=== PATIENT | male | born 1970 | race Caucasian/White ===

== ENCOUNTER 2016-09-02 21:57 | Emergency (ER) | payer OTHER ==
[~2016-09-02] VITALS: Ht 180.3 cm; Wt 96.3 kg
[~2016-09-02 21:57] MED LIST: CIPRO500 MG PO; COZAAR50 MG PO; ESCITALOPRAM OX10 MG PO; FLAGYL500 MG PO; FLOMAX0.4 MG PO; FOLIC ACID1 MG PO; FOLIC ACID20 MG PO; HYDROCODON-ACE1 EAC7 PO; HYOSCYAMINE0.125 MG PO; KLONOPIN2 MG PO; LOSARTAN POTAS100 MG PO; MULTI VITAMIN1 EACH PO; NORCO 5/3251 TABLET PO; OLEPTRO ER150 MG PO; OMEPRAZOLE40 M1 PO; PERCOCET 5/31 TABLET PO; PROPRANOLOL HCL60 MG PO; RELPAX20 MG PO; SUCRALFATE1 GM PO; TRAZODONE HCL150 MG PO; TYLENOL WITH C1 EACH PO; VANCOCIN HCL125 MG PO; WELLBUTRIN SR150 MG PO; WELLBUTRIN100 M1 PO; ZOFRAN ODT4 MG PO; ZOFRAN4 MG PO
[2016-09-02 22:23] LABS: HEMATOCRIT 38.6 % (38.0-50.0); MCH 31.3 PG (29.0-34.0); MCHC 33.9 G/DL (30.0-36.0); MCV 92.3 FL (86-99); MEAN PLAT.VOLUME 9.6 uM^3 (9.0-12.4); PLATELET COUNT 273 K/uL (156-360); RBC DIS.WIDTH-CV 14.6 % (11.8-14.6); RBC DIS.WIDTH-SD 47.7 % (39-53); RED BLOOD COUNT 4.18 M/uL (4.00-5.50); WHITE BLOOD COUNT 11.7 K/uL (4.1-10.2)
[2016-09-02 22:33] LABS: CHLORIDE 113 mEq/L (99-109); POTASSIUM 3.1 mEq/L (3.7-5.4); SODIUM 146 mEq/L (136-147)
[2016-09-02 22:35] LABS: GLUCOSE 91 mg/dL (70-99)
[2016-09-02 22:36] LABS: ANION GAP 12 MEQ/L (2-14)
[2016-09-02 22:38] LABS: GFR ESTIMATE (CALCULATED) > 59 mL/min/; SERUM ETHYL ALCOHOL 326 mg/dL
[2016-09-02 22:39] LABS: UREA NITROGEN (BUN) 10 mg/dL (9-23)
[2016-09-02 22:42] LABS: TROP-I INTERPRETATION NEGATIVE; TROPONIN-I 0.01 ng/mL (0.0-0.30)
[2016-09-03 00:23] LABS: TOTAL BILIRUBIN 0.2 mg/dL (0.0-1.0)
[2016-09-03 00:24] LABS: ALKALINE PHOSPHATASE 86 IU/L (3-129)
[2016-09-03 00:27] LABS: DIRECT BILIRUBIN 0.1 mg/dL (0.0-0.3)
[2016-09-03 00:28] LABS: LIPASE 62 U/L (1.0-51.0)
[2016-09-03 03:18] LABS: ADD MIUA? NO; BILIRUBIN NEGATIVE; BLOOD NEGATIVE; COLOR YELLOW ((YELLOW)); GLUCOSE (STRIP) NEGATIVE; KETONES NEGATIVE; LEUKOCYTES NEGATIVE; NITRITE NEGATIVE; PH, URINE 6.5 (5-8); PROTEIN (STRIP) NEGATIVE; SPECIFIC GRAVITY 1.018 (1.000-1.030); UCUL ADDED? NO; UROBILINOGEN 0.2 MG/DL (0.2-1.0)
[2016-09-03 03:47] LABS: AMPHETAMINE NEGATIVE (500 ng/mL); COCAINE NEGATIVE (150 ng/mL); METHAMPHETAMINE NEGATIVE (500 ng/mL); OPIATES (MORPHINE) PRESUMPTIVE POSITIVE (100 ng/mL); PHENCYCLIDINE NEGATIVE (25 ng/mL); THC CANNABINOIDS PRESUMPTIVE POSITIVE (50 ng/mL)
[2016-09-03 03:48] LABS: BENZODIAZEPINES PRESUMPTIVE POSITIVE (150 ng/mL); METHADONE NEGATIVE (200 ng/mL); TRICYCLIC ANTIDEPRESSANTS NEGATIVE (300 ng/mL)
[2016-09-03 03:49] LABS: BARBITURATES NEGATIVE (200 ng/mL); INTERNAL CONTROLS VALID? YES; OXYCODONE NEGATIVE (100 ng/mL); PROPOXYPHENE NEGATIVE (300 ng/mL)
[2016-09-03 03:50] LABS: ADD MEDTOX COMMENT Y
[2016-09-03] MEDS ORDERED: ULTRAM50 MG PO (03:50)
[2016-09-03] MEDS ORDERED: LIBRIUM25 MG PO (03:50)
[2016-09-03] MEDS ORDERED: PRILOSEC OTC20 MG PO (03:50)
[2016-09-03 04:27] VITALS: BP 138/70
[2016-09-03 04:56] LABS: BENZODIAZEPINES, URINE SCREEN POSITIVE (200 ng/mL)
== END 2016-09-03 04:28 | disposition home or self-care (01) ==
LOC: EME 21:57
PROVIDERS: Emergency Medicine
DX: F10.129 Alcohol abuse with intoxication, unspecified (principal); K85.90 Acute pancreatitis without necrosis or infection, unspecified; S00.83XA Contusion of other part of head, initial encounter; R10.9 Unspecified abdominal pain; I10 Essential (primary) hypertension; F17.200 Nicotine dependence, unspecified, uncomplicated; Y04.0XXA Assault by unarmed brawl or fight, initial encounter; Z87.442 Personal history of urinary calculi; Z71.6 Tobacco abuse counseling
CPT/HCPCS: 70486; 71020; 74176; 80048; 80076; 81003; 83690; 84484; 84999; 85027; 93005; 99281; 99283; C9113; G0480; J2270; J2405; J7030

== ENCOUNTER 2016-09-13 05:59 | Emergency (ER) | payer OTHER ==
[~2016-09-13] VITALS: Ht 170.2 cm; Wt 97.6 kg
[~2016-09-13 05:59] MED LIST changes: +LIBRIUM25 MG PO; +PRILOSEC OTC20 MG PO; +ULTRAM50 MG PO
[2016-09-13 06:39] LABS: AMPHETAMINE NEGATIVE (500 ng/mL); BARBITURATES NEGATIVE (200 ng/mL); BENZODIAZEPINES PRESUMPTIVE POSITIVE (150 ng/mL); COCAINE NEGATIVE (150 ng/mL); INTERNAL CONTROLS VALID? YES; METHADONE NEGATIVE (200 ng/mL); METHAMPHETAMINE NEGATIVE (500 ng/mL); OPIATES (MORPHINE) NEGATIVE (100 ng/mL); OXYCODONE NEGATIVE (100 ng/mL); PHENCYCLIDINE NEGATIVE (25 ng/mL); PROPOXYPHENE NEGATIVE (300 ng/mL); THC CANNABINOIDS PRESUMPTIVE POSITIVE (50 ng/mL); TRICYCLIC ANTIDEPRESSANTS NEGATIVE (300 ng/mL)
[2016-09-13 06:40] LABS: ADD MEDTOX COMMENT Y
[2016-09-13 06:59] LABS: HEMATOCRIT 38.1 % (38.0-50.0); MCH 31.6 PG (29.0-34.0); MCHC 33.3 G/DL (30.0-36.0); MCV 94.8 FL (86-99); MEAN PLAT.VOLUME 9.4 uM^3 (9.0-12.4); PLATELET COUNT 213 K/uL (156-360); RBC DIS.WIDTH-CV 16.8 % (11.8-14.6); RBC DIS.WIDTH-SD 52.1 % (39-53); RED BLOOD COUNT 4.02 M/uL (4.00-5.50); WHITE BLOOD COUNT 9.4 K/uL (4.1-10.2)
[2016-09-13 07:20] LABS: BENZODIAZEPINES, URINE SCREEN POSITIVE (200 ng/mL)
[2016-09-13 08:42] LABS: ANION GAP 11 MEQ/L (2-14); CHLORIDE 108 MEQ/L (99-109); POTASSIUM 3.2 MEQ/L (3.7-5.4); SAMPLE HEMOLYSIS CHECK 0; SAMPLE ICTERIC CHECK 0; SAMPLE LIPEMIA CHECK 0; SODIUM 142 MEQ/L (136-147)
[2016-09-13 08:47] LABS: GFR ESTIMATE (CALCULATED) > 59 mL/min/; GLUCOSE 106 mg/dL (70-99); UREA NITROGEN (BUN) 8 mg/dL (9-23)
[2016-09-13 14:19] VITALS: BP 140/98
== END 2016-09-13 14:53 | disposition home or self-care (01) ==
LOC: EME → EDBD 05:59 → EME 05:59
PROVIDERS: Emergency Medicine
DX: F10.20 Alcohol dependence, uncomplicated (principal); F41.9 Anxiety disorder, unspecified; F33.1 Major depressive disorder, recurrent, moderate; Y90.8 Blood alcohol level of 240 mg/100 ml or more; I10 Essential (primary) hypertension; F17.200 Nicotine dependence, unspecified, uncomplicated
CPT/HCPCS: 80048; 84999; 85027; 90837; 99281; 99284; G0480

== ENCOUNTER 2016-10-17 19:30 | Emergency (ER) | payer OTHER ==
[~2016-10-17] VITALS: Ht 180.3 cm; Wt 98.2 kg
[2016-10-17 19:54] LABS: HEMATOCRIT 42.9 % (38.0-50.0); MCH 31.2 PG (29.0-34.0); MCHC 33.8 G/DL (30.0-36.0); MCV 92.3 FL (86-99); MEAN PLAT.VOLUME 10.9 uM^3 (9.0-12.4); PLATELET COUNT 214 K/uL (156-360); RBC DIS.WIDTH-CV 15.1 % (11.8-14.6); RBC DIS.WIDTH-SD 49.3 % (39-53); RED BLOOD COUNT 4.65 M/uL (4.00-5.50); WHITE BLOOD COUNT 11.8 K/uL (4.1-10.2)
[2016-10-17 20:09] LABS: CHLORIDE 111 mEq/L (99-109); POTASSIUM 3.9 mEq/L (3.7-5.4); SODIUM 141 mEq/L (136-147)
[2016-10-17 20:11] LABS: GLUCOSE 88 mg/dL (70-99)
[2016-10-17 20:12] LABS: ANION GAP 9 MEQ/L (2-14)
[2016-10-17 20:13] LABS: TOTAL BILIRUBIN 0.4 mg/dL (0.0-1.0)
[2016-10-17 20:14] LABS: ALKALINE PHOSPHATASE 79 IU/L (3-129)
[2016-10-17 20:15] LABS: GFR ESTIMATE (CALCULATED) > 59 mL/min/
[2016-10-17 20:16] LABS: UREA NITROGEN (BUN) 14 mg/dL (9-23)
[2016-10-17] MEDS ORDERED: LIALDA1.2 GM PO (20:35)
[2016-10-17 22:17] LABS: ADD MIUA? NO; BILIRUBIN NEGATIVE; BLOOD NEGATIVE; COLOR YELLOW ((YELLOW)); GLUCOSE (STRIP) NEGATIVE; KETONES NEGATIVE; LEUKOCYTES NEGATIVE; NITRITE NEGATIVE; PROTEIN (STRIP) NEGATIVE; UCUL ADDED? NO; UROBILINOGEN 0.2 MG/DL (0.2-1.0)
[2016-10-17 22:30] LABS: SPECIFIC GRAVITY 1.058 (1.000-1.030)
[2016-10-17] MEDS ORDERED: PERCOCET 5/31 TABLET PO (23:19)
[2016-10-17] MEDS ORDERED: ENTOCORT EC3 MG PO (23:19)
[2016-10-17 23:54] VITALS: BP 153/95
== END 2016-10-18 00:02 | disposition home or self-care (01) ==
LOC: EME 19:30
DX: K50.90 Crohn's disease, unspecified, without complications (principal); K92.2 Gastrointestinal hemorrhage, unspecified; I10 Essential (primary) hypertension; F17.200 Nicotine dependence, unspecified, uncomplicated
CPT/HCPCS: 74177; 80053; 81003; 85027; 87493; 87506; 99281; 99285; J2270; J2405; J2930; J3360; J7030

== ENCOUNTER 2016-11-01 21:25 | Observation (INO) | payer OTHER ==
[~2016-11-01] VITALS: Ht 180.3 cm; Wt 93.7 kg
[~2016-11-01 21:25] MED LIST changes: +ENTOCORT EC3 MG PO; +LIALDA1.2 GM PO
[2016-11-02 03:29] LABS: HEMATOCRIT 41.7 % (38.0-50.0); MCH 30.4 PG (29.0-34.0); MCHC 33.1 G/DL (30.0-36.0); MCV 91.9 FL (86-99); MEAN PLAT.VOLUME 10.7 uM^3 (9.0-12.4); RBC DIS.WIDTH-CV 14.9 % (11.8-14.6); RBC DIS.WIDTH-SD 50.4 % (39-53); RED BLOOD COUNT 4.54 M/uL (4.00-5.50); WHITE BLOOD COUNT 10.4 K/uL (4.1-10.2)
[2016-11-02 03:32] LABS: PLATELET COUNT 280 K/uL (156-360)
[2016-11-02 03:39] LABS: CHLORIDE 112 mEq/L (99-109); POTASSIUM 3.8 mEq/L (3.7-5.4); SODIUM 139 mEq/L (136-147)
[2016-11-02 03:42] LABS: GLUCOSE 90 mg/dL (70-99)
[2016-11-02 03:43] LABS: ANION GAP 10 MEQ/L (2-14)
[2016-11-02 03:44] LABS: TOTAL BILIRUBIN 0.4 mg/dL (0.0-1.0)
[2016-11-02 03:45] LABS: ALKALINE PHOSPHATASE 73 IU/L (3-129); SERUM ETHYL ALCOHOL < 10 mg/dL
[2016-11-02 03:46] LABS: GFR ESTIMATE (CALCULATED) > 59 mL/min/
[2016-11-02 03:47] LABS: UREA NITROGEN (BUN) 11 mg/dL (9-23)
[2016-11-02 04:06] LABS: TROP-I INTERPRETATION NEGATIVE; TROPONIN-I 0.01 ng/mL (0.0-0.30)
[2016-11-02 04:58] LABS: ADD MIUA? NO; BILIRUBIN NEGATIVE; BLOOD NEGATIVE; COLOR YELLOW ((YELLOW)); GLUCOSE (STRIP) NEGATIVE; KETONES NEGATIVE; LEUKOCYTES NEGATIVE; NITRITE NEGATIVE; PROTEIN (STRIP) NEGATIVE; SPECIFIC GRAVITY 1.023 (1.000-1.030); UCUL ADDED? NO; UROBILINOGEN 0.2 MG/DL (0.2-1.0)
[2016-11-02 05:30] LABS: AMPHETAMINE NEGATIVE (500 ng/mL); BARBITURATES NEGATIVE (200 ng/mL); BENZODIAZEPINES PRESUMPTIVE POSITIVE (150 ng/mL); COCAINE NEGATIVE (150 ng/mL); INTERNAL CONTROLS VALID? YES; METHADONE NEGATIVE (200 ng/mL); METHAMPHETAMINE NEGATIVE (500 ng/mL); OPIATES (MORPHINE) PRESUMPTIVE POSITIVE (100 ng/mL); OXYCODONE NEGATIVE (100 ng/mL); PHENCYCLIDINE NEGATIVE (25 ng/mL); PROPOXYPHENE NEGATIVE (300 ng/mL); THC CANNABINOIDS NEGATIVE (50 ng/mL); TRICYCLIC ANTIDEPRESSANTS NEGATIVE (300 ng/mL)
[2016-11-02 05:31] LABS: ADD MEDTOX COMMENT Y
[2016-11-02] MEDS ORDERED: MOBIC15 MG PO (05:36)
[2016-11-02] MEDS ORDERED: SULFAZINE500 M1 PO (05:36)
[2016-11-02] MEDS ORDERED: COZAAR50 MG PO ×2 (05:37→09:31)
[2016-11-02 06:08] LABS: BENZODIAZEPINES QUANT VALUE 0 NG/ML
[2016-11-02 06:17] LABS: BENZODIAZEPINES, URINE SCREEN Negative (200 ng/mL)
[2016-11-02 07:20] VITALS: BP 163/111
[2016-11-02 08:14] VITALS: BP 151/96
[2016-11-02] MEDS ORDERED: PROPRANOLOL HCL60 MG PO (09:31)
[2016-11-02 10:03] LABS: TROP-I INTERPRETATION NEGATIVE; TROPONIN-I 0.02 ng/mL (0.0-0.30)
== END 2016-11-02 11:35 | disposition home or self-care (01) ==
LOC: EME 21:25 → EXP 21:25 → EDOF 11-02 03:03 → 5WEST 11-02 07:07
PROVIDERS: Emergency Medicine; Physician Assistant; Physician Assistant Medical
DX: G43.919 Migraine, unspecified, intractable, without status migrainosus (principal); I16.0 Hypertensive urgency; I10 Essential (primary) hypertension; F17.200 Nicotine dependence, unspecified, uncomplicated; R55 Syncope and collapse; M06.9 Rheumatoid arthritis, unspecified; Z86.73 Personal history of transient ischemic attack (TIA), and cerebral infarction without residual deficits; Z91.11 Patient's noncompliance with dietary regimen
CPT/HCPCS: 70450; 71275; 80053; 81003; 84484; 84999; 85027; 93005; 99281; 99285; G0378; G0480; J0360; J0780; J1200; J1650; J1885; J2270; J2765; J2930; J7030

== ENCOUNTER 2016-11-09 15:12 | Emergency (ER) | payer OTHER ==
[~2016-11-09] VITALS: Ht 180.3 cm; Wt 93.3 kg
[~2016-11-09 15:12] MED LIST changes: +MOBIC15 MG PO; +SULFAZINE500 M1 PO
[2016-11-09 19:38] VITALS: BP 137/98
== END 2016-11-09 19:40 | disposition home or self-care (01) ==
LOC: EME 15:12
DX: G43.109 Migraine with aura, not intractable, without status migrainosus (principal); I10 Essential (primary) hypertension; F17.200 Nicotine dependence, unspecified, uncomplicated
CPT/HCPCS: 99281; 99285; J1100; J1200; J2270; J2765; J7030

== ENCOUNTER 2016-11-19 21:01 | Emergency (ER) | payer OTHER ==
[~2016-11-19] VITALS: Ht 180.3 cm; Wt 91.9 kg
[2016-11-19 22:04] LABS: BASOPHIL COUNT 0.1 K/uL (0-0.1); EOSINOPHIL (%) 4.4 % (0-5); EOSINOPHIL COUNT 0.5 K/uL (0-0.3); HEMATOCRIT 45.2 % (38.0-50.0); IMMATURE GRANULOCYTE (%) 0.4 % (0.0-0.7); INSTRUMENT ABS NEUTROPHIL CT 5.2 K/uL; LYMPHOCYTE COUNT 3.7 K/uL (1.0-2.8); MCHC 33.8 G/DL (30.0-36.0); MCV 91.5 FL (86-99); MEAN PLAT.VOLUME 10.4 uM^3 (9.0-12.4); MONOCYTE (%) 8.3 % (3-12); MONOCYTE COUNT 0.9 K/uL (0-0.8); NEUTROPHIL (%) 50.3 % (45-76); NEUTROPHIL COUNT 5.2 K/uL (1.8-6.4); PLATELET COUNT 268 K/uL (156-360); RBC DIS.WIDTH-CV 14.6 % (11.8-14.6); RBC DIS.WIDTH-SD 49.5 % (39-53); RED BLOOD COUNT 4.94 M/uL (4.00-5.50); WHITE BLOOD COUNT 10.3 K/uL (4.1-10.2)
[2016-11-19 22:17] LABS: CHLORIDE 112 mEq/L (99-109); SODIUM 141 mEq/L (136-147)
[2016-11-19 22:18] LABS: GLUCOSE 107 mg/dL (70-99)
[2016-11-19 22:20] LABS: ANION GAP 11 MEQ/L (2-14)
[2016-11-19 22:22] LABS: GFR ESTIMATE (CALCULATED) > 59 mL/min/
[2016-11-19 22:23] LABS: UREA NITROGEN (BUN) 21 mg/dL (9-23)
[2016-11-20] MEDS ORDERED: FIORICET,ESG1 TABLET PO (01:48)
[2016-11-20 02:31] VITALS: BP 126/87
== END 2016-11-20 02:50 | disposition home or self-care (01) ==
LOC: EME 21:01
PROVIDERS: Emergency Medicine
DX: G43.909 Migraine, unspecified, not intractable, without status migrainosus (principal); I10 Essential (primary) hypertension; F17.200 Nicotine dependence, unspecified, uncomplicated
CPT/HCPCS: 80048; 85025; 99281; 99285; J1100; J1200; J1630; J1885; J2765; J3010; J3475; J7030; J7050

== ENCOUNTER 2016-11-21 22:43 | Emergency (ER) | payer OTHER ==
[~2016-11-21] VITALS: Ht 180.3 cm; Wt 93.7 kg
[~2016-11-21 22:43] MED LIST changes: +FIORICET,ESG1 TABLET PO
[2016-11-21 23:22] LABS: HEMATOCRIT 40.9 % (38.0-50.0); MCH 30.6 PG (29.0-34.0); MCHC 33.5 G/DL (30.0-36.0); MCV 91.5 FL (86-99); MEAN PLAT.VOLUME 10.5 uM^3 (9.0-12.4); PLATELET COUNT 263 K/uL (156-360); RBC DIS.WIDTH-CV 14.9 % (11.8-14.6); RBC DIS.WIDTH-SD 50.9 % (39-53); RED BLOOD COUNT 4.47 M/uL (4.00-5.50); WHITE BLOOD COUNT 13.7 K/uL (4.1-10.2)
[2016-11-21 23:28] LABS: CHLORIDE 113 mEq/L (99-109); POTASSIUM 3.4 mEq/L (3.7-5.4); SODIUM 144 mEq/L (136-147)
[2016-11-21 23:31] LABS: GLUCOSE 95 mg/dL (70-99)
[2016-11-21 23:32] LABS: ANION GAP 10 MEQ/L (2-14); TOTAL BILIRUBIN 0.2 mg/dL (0.0-1.0)
[2016-11-21 23:34] LABS: ALKALINE PHOSPHATASE 71 IU/L (3-129); GFR ESTIMATE (CALCULATED) > 59 mL/min/
[2016-11-21 23:35] LABS: UREA NITROGEN (BUN) 22 mg/dL (9-23)
[2016-11-22 00:40] LABS: ADD MIUA? NO; BILIRUBIN NEGATIVE; BLOOD NEGATIVE; COLOR YELLOW ((YELLOW)); GLUCOSE (STRIP) NEGATIVE; KETONES NEGATIVE; LEUKOCYTES NEGATIVE; NITRITE NEGATIVE; PROTEIN (STRIP) NEGATIVE; SPECIFIC GRAVITY 1.017 (1.000-1.030); UCUL ADDED? NO; UROBILINOGEN 0.2 MG/DL (0.2-1.0)
[2016-11-22] MEDS ORDERED: BENTYL10 MG PO (01:00)
[2016-11-22] MEDS ORDERED: PREDNISONE20 MG PO (01:00)
[2016-11-22] MEDS ORDERED: PERCOCET 5/31 TABLET PO (01:02)
[2016-11-22 01:29] VITALS: BP 153/98
== END 2016-11-22 01:30 | disposition home or self-care (01) ==
LOC: EME 22:43
DX: K52.9 Noninfective gastroenteritis and colitis, unspecified (principal); I10 Essential (primary) hypertension; K21.9 Gastro-esophageal reflux disease without esophagitis; K50.90 Crohn's disease, unspecified, without complications; M06.9 Rheumatoid arthritis, unspecified; G89.29 Other chronic pain; Z87.442 Personal history of urinary calculi; F17.200 Nicotine dependence, unspecified, uncomplicated
CPT/HCPCS: 80053; 81003; 85027; 99281; 99285; J3010; J7512

== ENCOUNTER 2016-12-10 16:54 | Observation (INO) | payer OTHER ==
[~2016-12-10] VITALS: Ht 180.3 cm; Wt 92.0 kg
[~2016-12-10 16:54] MED LIST changes: +BENTYL10 MG PO; +PREDNISONE20 MG PO
[2016-12-10 18:29] LABS: MCH 30.9 PG (29.0-34.0); MCHC 34.1 G/DL (30.0-36.0); MCV 90.6 FL (86-99); MEAN PLAT.VOLUME 9.7 uM^3 (9.0-12.4); PLATELET COUNT 220 K/uL (156-360); RBC DIS.WIDTH-CV 14.4 % (11.8-14.6); RBC DIS.WIDTH-SD 48.5 % (39-53); RED BLOOD COUNT 5.08 M/uL (4.00-5.50)
[2016-12-10 18:30] LABS: WHITE BLOOD COUNT 7.2 K/uL (4.1-10.2)
[2016-12-10 18:39] LABS: CHLORIDE 108 mEq/L (99-109); POTASSIUM 4.3 mEq/L (3.7-5.4); SODIUM 136 mEq/L (136-147)
[2016-12-10 18:41] LABS: GLUCOSE 85 mg/dL (70-99)
[2016-12-10 18:42] LABS: ANION GAP 14 MEQ/L (2-14)
[2016-12-10 18:43] LABS: TOTAL BILIRUBIN 0.3 mg/dL (0.0-1.0)
[2016-12-10 18:44] LABS: ALKALINE PHOSPHATASE 175 IU/L (3-129)
[2016-12-10 18:45] LABS: GFR ESTIMATE (CALCULATED) > 59 mL/min/
[2016-12-10 18:46] LABS: UREA NITROGEN (BUN) 13 mg/dL (9-23)
[2016-12-10 18:48] LABS: LIPASE 25 U/L (1.0-51.0)
[2016-12-10 19:51] LABS: CREATINE KINASE 96 IU/L (1-294); TOTAL CK 96 IU/L (1-294)
[2016-12-10 19:52] LABS: ADD MIUA? YES; BILIRUBIN NEGATIVE; BLOOD LARGE; COLOR AMBER ((YELLOW)); GLUCOSE (STRIP) NEGATIVE; KETONES 20; LEUKOCYTES NEGATIVE; NITRITE NEGATIVE; PROTEIN (STRIP) 100; SPECIFIC GRAVITY 1.021 (1.000-1.030)
[2016-12-10 19:57] LABS: CK-MB 0.6 ng/mL (0.0-4.9)
[2016-12-10 20:05] LABS: BACTERIA RARE /HPF; EPITHELIAL CELLS RARE /HPF; MUCUS TRACE /LPF; RED BLOOD CELLS TNTC /HPF (0-5)
[2016-12-10] MEDS ORDERED: TRAMADOL HCL50 MG PO (22:18)
[2016-12-10] MEDS ORDERED: KLONOPIN0.5 M1 PO (22:18)
[2016-12-10] MEDS ORDERED: TRAZODONE HCL50 MG PO (22:19)
[2016-12-10] MEDS ORDERED: AMLODIPINE BESYL5 MG PO (22:21)
[2016-12-11] VITALS (7 sets, daily range): BP systolic 126–147; BP diastolic 66–96
[2016-12-11 11:04] LABS: HEMATOCRIT 37.8 % (38.0-50.0); MCH 31.1 PG (29.0-34.0); MCHC 33.6 G/DL (30.0-36.0); MCV 92.4 FL (86-99); MEAN PLAT.VOLUME 9.8 uM^3 (9.0-12.4); PLATELET COUNT 169 K/uL (156-360); RBC DIS.WIDTH-CV 14.6 % (11.8-14.6); RED BLOOD COUNT 4.09 M/uL (4.00-5.50); WHITE BLOOD COUNT 7.1 K/uL (4.1-10.2)
[2016-12-11 11:11] LABS: ANION GAP 10 MEQ/L (2-14); CHLORIDE 108 MEQ/L (99-109); GFR ESTIMATE (CALCULATED) > 59 mL/min/; POTASSIUM 3.8 MEQ/L (3.7-5.4); SAMPLE HEMOLYSIS CHECK 0; SAMPLE ICTERIC CHECK 0; SAMPLE LIPEMIA CHECK 0; SODIUM 137 MEQ/L (136-147); UREA NITROGEN (BUN) 10 mg/dL (9-23)
[2016-12-11 11:12] LABS: GLUCOSE 117 mg/dL (70-99)
[2016-12-11 11:45] LABS: EOSINOPHIL (%) 4.2 % (0-5); EOSINOPHIL COUNT 0.3 K/uL (0-0.3); IMMATURE GRANULOCYTE (%) 0.3 % (0.0-0.7); INSTRUMENT ABS NEUTROPHIL CT 3.5 K/uL; LYMPHOCYTE COUNT 2.7 K/uL (1.0-2.8); MONOCYTE (%) 8.4 % (3-12); MONOCYTE COUNT 0.6 K/uL (0-0.8); NEUTROPHIL (%) 48.3 % (45-76); NEUTROPHIL COUNT 3.5 K/uL (1.8-6.4)
[2016-12-11] MEDS ORDERED: WELLBUTRIN XL150 MG PO (11:56)
[2016-12-11] MEDS ORDERED: TAMSULOSIN HCL0.4 MG PO (15:56)
[2016-12-11] MEDS ORDERED: LEVAQUIN750 MG PO (15:57)
[2016-12-11] MEDS ORDERED: OXYCODONE HCL10 MG PO (16:06)
[2016-12-12 04:00] VITALS: BP 130/86
[2016-12-12 07:57] VITALS: BP 134/89
[2016-12-12 08:22] LABS: HEMATOCRIT 40.4 % (38.0-50.0); MCH 30.1 PG (29.0-34.0); MCHC 32.9 G/DL (30.0-36.0); MCV 91.4 FL (86-99); MEAN PLAT.VOLUME 9.9 uM^3 (9.0-12.4); PLATELET COUNT 177 K/uL (156-360); RBC DIS.WIDTH-CV 14.6 % (11.8-14.6); RBC DIS.WIDTH-SD 48.6 % (39-53); RED BLOOD COUNT 4.42 M/uL (4.00-5.50); WHITE BLOOD COUNT 8.9 K/uL (4.1-10.2)
[2016-12-12 08:50] LABS: ANION GAP 10 MEQ/L (2-14); CHLORIDE 108 MEQ/L (99-109); GFR ESTIMATE (CALCULATED) > 59 mL/min/; GLUCOSE 106 mg/dL (70-99); POTASSIUM 3.9 MEQ/L (3.7-5.4); SAMPLE HEMOLYSIS CHECK 0; SAMPLE ICTERIC CHECK 0; SAMPLE LIPEMIA CHECK 0; SODIUM 138 MEQ/L (136-147); UREA NITROGEN (BUN) 7 mg/dL (9-23)
[2016-12-12 08:57] LABS: EOSINOPHIL (%) 5.4 % (0-5); EOSINOPHIL COUNT 0.5 K/uL (0-0.3); IMMATURE GRANULOCYTE (%) 0.2 % (0.0-0.7); INSTRUMENT ABS NEUTROPHIL CT 4.5 K/uL; LYMPHOCYTE COUNT 3.5 K/uL (1.0-2.8); MONOCYTE (%) 4.9 % (3-12); MONOCYTE COUNT 0.4 K/uL (0-0.8); NEUTROPHIL (%) 50.3 % (45-76); NEUTROPHIL COUNT 4.5 K/uL (1.8-6.4)
[2016-12-12 11:05] VITALS: BP 120/77
[2016-12-12] MEDS ORDERED: OXYCODONE HCL5 MG PO (13:59)
== END 2016-12-12 14:20 | disposition home or self-care (01) ==
LOC: EME 16:54 → EDOF 23:52 → 5WEST 23:52 → EDOF 23:52 → 5WEST 12-11 01:23
PROVIDERS: Hospitalist; Nurse Practitioner Family
DX: N39.0 Urinary tract infection, site not specified (principal); R11.2 Nausea with vomiting, unspecified; E86.0 Dehydration; R10.9 Unspecified abdominal pain; K50.90 Crohn's disease, unspecified, without complications; I10 Essential (primary) hypertension; R31.9 Hematuria, unspecified; F17.210 Nicotine dependence, cigarettes, uncomplicated
CPT/HCPCS: 74176; 80048; 80053; 81003; 82550; 82553; 83605; 83690; 85025; 85027; 87086; 99281; 99285; G0378; J0696; J1170; J1885; J2270; J2405; J3010; J7030; J7050

== ENCOUNTER 2017-01-07 17:47 | Emergency (ER) | payer OTHER ==
[~2017-01-07] VITALS: Ht 180.3 cm; Wt 94.8 kg
[~2017-01-07 17:47] MED LIST changes: +AMLODIPINE BESYL5 MG PO; +KLONOPIN0.5 M1 PO; +LEVAQUIN750 MG PO; +OXYCODONE HCL10 MG PO; +OXYCODONE HCL5 MG PO; +TAMSULOSIN HCL0.4 MG PO; +TRAMADOL HCL50 MG PO; +TRAZODONE HCL50 MG PO; +WELLBUTRIN XL150 MG PO
[2017-01-07 19:18] LABS: BASOPHIL COUNT 0.1 K/uL (0-0.1); EOSINOPHIL (%) 6.9 % (0-5); EOSINOPHIL COUNT 0.8 K/uL (0-0.3); IMMATURE GRANULOCYTE (%) 0.4 % (0.0-0.7); INSTRUMENT ABS NEUTROPHIL CT 5.5 K/uL; MCH 31.2 PG (29.0-34.0); MCHC 34.7 G/DL (30.0-36.0); MEAN PLAT.VOLUME 9.4 uM^3 (9.0-12.4); MONOCYTE (%) 7.6 % (3-12); MONOCYTE COUNT 0.9 K/uL (0-0.8); NEUTROPHIL (%) 48.7 % (45-76); NEUTROPHIL COUNT 5.5 K/uL (1.8-6.4); RBC DIS.WIDTH-CV 13.7 % (11.8-14.6); RBC DIS.WIDTH-SD 45.2 % (39-53); RED BLOOD COUNT 4.78 M/uL (4.00-5.50); WHITE BLOOD COUNT 11.3 K/uL (4.1-10.2)
[2017-01-07 19:19] LABS: PLATELET COUNT 287 K/uL (156-360)
[2017-01-07 19:22] LABS: CHLORIDE 108 mEq/L (99-109); POTASSIUM 3.8 mEq/L (3.7-5.4); SODIUM 139 mEq/L (136-147)
[2017-01-07 19:24] LABS: GLUCOSE 96 mg/dL (70-99)
[2017-01-07 19:26] LABS: ANION GAP 13 MEQ/L (2-14); TOTAL BILIRUBIN 0.5 mg/dL (0.0-1.0)
[2017-01-07 19:28] LABS: ALKALINE PHOSPHATASE 75 IU/L (3-129); GFR ESTIMATE (CALCULATED) > 59 mL/min/
[2017-01-07 19:29] LABS: ADD MIUA? YES; BILIRUBIN NEGATIVE; BLOOD LARGE; COLOR AMBER ((YELLOW)); GLUCOSE (STRIP) NEGATIVE; KETONES NEGATIVE; LEUKOCYTES NEGATIVE; NITRITE NEGATIVE; PROTEIN (STRIP) 30; SPECIFIC GRAVITY 1.024 (1.000-1.030); UROBILINOGEN 0.2 MG/DL (0.2-1.0)
[2017-01-07 19:29] LABS: UREA NITROGEN (BUN) 16 mg/dL (9-23)
[2017-01-07 19:35] LABS: BACTERIA RARE /HPF; EPITHELIAL CELLS RARE /HPF; MUCUS TRACE /LPF; RED BLOOD CELLS TNTC /HPF (0-5); WHITE BLOOD CELLS 0-5 /HPF (0-5)
[2017-01-07] MEDS ORDERED: PERCOCET 5/31 TABLET PO (19:54)
[2017-01-07] MEDS ORDERED: CIPRO500 MG PO (19:54)
[2017-01-07] MEDS ORDERED: PREDNISONE5 M1 PO (19:54)
[2017-01-07] MEDS ORDERED: FLOMAX0.4 MG PO (19:54)
[2017-01-07 20:03] VITALS: BP 127/88
== END 2017-01-07 20:05 | disposition home or self-care (01) ==
LOC: EME 17:47
PROVIDERS: Physician Assistant
DX: R10.32 Left lower quadrant pain (principal); R31.9 Hematuria, unspecified; K62.5 Hemorrhage of anus and rectum; I10 Essential (primary) hypertension; Z87.442 Personal history of urinary calculi; Z90.49 Acquired absence of other specified parts of digestive tract; F17.200 Nicotine dependence, unspecified, uncomplicated
CPT/HCPCS: 80053; 81003; 85025; 99281; 99284; J3010

== ENCOUNTER 2017-01-20 21:32 | Inpatient (IN) | payer OTHER ==
[~2017-01-20] VITALS: Ht 180.3 cm; Wt 102.7 kg
[~2017-01-20 21:32] MED LIST changes: +PREDNISONE5 M1 PO
[2017-01-20 22:52] LABS: CHLORIDE 111 mEq/L (99-109); POTASSIUM 3.8 mEq/L (3.7-5.4); SODIUM 141 mEq/L (136-147)
[2017-01-20 22:55] LABS: GLUCOSE 85 mg/dL (70-99)
[2017-01-20 22:56] LABS: ANION GAP 8 MEQ/L (2-14)
[2017-01-20 22:57] LABS: TOTAL BILIRUBIN 0.2 mg/dL (0.0-1.0)
[2017-01-20 22:59] LABS: ALKALINE PHOSPHATASE 61 IU/L (3-129); GFR ESTIMATE (CALCULATED) > 59 mL/min/; UREA NITROGEN (BUN) 12 mg/dL (9-23)
[2017-01-20 23:02] LABS: LIPASE 176 U/L (1.0-51.0)
[2017-01-20 23:06] LABS: HEMATOCRIT 34.6 % (38.0-50.0); MCH 31.2 PG (29.0-34.0); MCHC 33.5 G/DL (30.0-36.0); MEAN PLAT.VOLUME 9.9 uM^3 (9.0-12.4); PLATELET COUNT 209 K/uL (156-360); RBC DIS.WIDTH-CV 13.9 % (11.8-14.6); RBC DIS.WIDTH-SD 47.8 % (39-53); RED BLOOD COUNT 3.72 M/uL (4.00-5.50); WHITE BLOOD COUNT 10.2 K/uL (4.1-10.2)
[2017-01-20 23:35] LABS: SERUM ETHYL ALCOHOL < 10 mg/dL
[2017-01-21 00:51] LABS: ADD MIUA? YES; BILIRUBIN NEGATIVE; BLOOD LARGE; COLOR YELLOW ((YELLOW)); GLUCOSE (STRIP) NEGATIVE; KETONES NEGATIVE; LEUKOCYTES NEGATIVE; NITRITE NEGATIVE; PROTEIN (STRIP) NEGATIVE; SPECIFIC GRAVITY 1.016 (1.000-1.030); UROBILINOGEN 0.2 MG/DL (0.2-1.0)
[2017-01-21 00:56] LABS: BACTERIA NONE SEEN /HPF; EPITHELIAL CELLS NONE SEEN /HPF; MUCUS TRACE /LPF; RED BLOOD CELLS TNTC /HPF (0-5); UCUL ADDED? NO; WHITE BLOOD CELLS 0-5 /HPF (0-5)
[2017-01-21] MEDS ORDERED: AMLODIPINE BESYL5 MG PO (01:00)
[2017-01-21] MEDS ORDERED: DESYREL 150 MG150 MG PO (01:01)
[2017-01-21] MEDS ORDERED: RELPAX40 MG PO (01:01)
[2017-01-21] MEDS ORDERED: HYDROXYZINE HCL25 MG PO (01:02)
[2017-01-21] MEDS ORDERED: LIALDA1.2 GM PO (01:02)
[2017-01-21] MEDS ORDERED: BUSPAR10 MG PO (01:03)
[2017-01-21] MEDS ORDERED: ELAVIL25 MG PO (01:03)
[2017-01-21] MEDS ORDERED: SULFASALAZINE500 MG PO (01:03)
[2017-01-21 05:43] VITALS: BP 128/84
[2017-01-21 06:54] LABS: POINT-OF-CARE METER ID UU14149397
[2017-01-21 07:06] LABS: BASOPHIL COUNT 0.1 K/uL (0-0.1); EOSINOPHIL (%) 4.9 % (0-5); EOSINOPHIL COUNT 0.5 K/uL (0-0.3); IMMATURE GRANULOCYTE (%) 0.7 % (0.0-0.7); IMMATURE GRANULOCYTE COUNT 0.1 K/uL; LYMPHOCYTE COUNT 1.7 K/uL (1.0-2.8); MCH 31.7 PG (29.0-34.0); MCHC 32.9 G/DL (30.0-36.0); MCV 96.3 FL (86-99); MEAN PLAT.VOLUME 10.1 uM^3 (9.0-12.4); MONOCYTE (%) 3.3 % (3-12); MONOCYTE COUNT 0.4 K/uL (0-0.8); NEUTROPHIL (%) 74.8 % (45-76); NRBC (%) 0.2 /100 WBC (0-0); PLATELET COUNT 186 K/uL (156-360); RBC DIS.WIDTH-CV 14.4 % (11.8-14.6); RBC DIS.WIDTH-SD 50.9 % (39-53); RED BLOOD COUNT 3.53 M/uL (4.00-5.50); WHITE BLOOD COUNT 10.7 K/uL (4.1-10.2)
[2017-01-21 07:39] LABS: ANION GAP 6 MEQ/L (2-14); CHLORIDE 111 MEQ/L (99-109); GFR ESTIMATE (CALCULATED) > 59 mL/min/; GLUCOSE 94 mg/dL (70-99); POTASSIUM 4.4 MEQ/L (3.7-5.4); SAMPLE HEMOLYSIS CHECK 0; SAMPLE ICTERIC CHECK 0; SAMPLE LIPEMIA CHECK 0; SODIUM 140 MEQ/L (136-147); UREA NITROGEN (BUN) 12 mg/dL (9-23)
[2017-01-21 07:40] LABS: MAGNESIUM 1.8 mg/dl (1.3-2.7)
[2017-01-21 08:00] VITALS: BP 130/85
[2017-01-21 09:39] LABS: HDL CHOLESTEROL 36 MG/DL (Desirable>=40); LDL CHOLESTEROL 106 mg/dL (Desirable<100); LIPASE 20 U/L (1.0-51.0); NON-HDL CHOLESTEROL 141 mg/dL (Desirable<160); TOTAL CHOLESTEROL 177 mg/dL (Desirable<200); TRIGLYCERIDES 177 MG/DL (Normal: <150)
[2017-01-21 10:22] LABS: ERTH.SED.RATE 9 MM/HR (0-15)
[2017-01-21 11:03] LABS: AMPHETAMINES QUANT VALUE 0 NG/ML; BARBITUATES QUANT VALUE 0 NG/ML; BENZODIAZEPINES QUANT VALUE 0 NG/ML; BENZODIAZEPINES, URINE SCREEN Negative (200 ng/mL); MARIJUANA QUANT VALUE 0 NG/ML; PHENCYCLIDINE QUANT VALUE 0 NG/ML
[2017-01-21 11:48] VITALS: BP 117/75
[2017-01-21 16:00] VITALS: BP 107/65
[2017-01-21 19:57] VITALS: BP 122/80
[2017-01-21 21:55] LABS: INTERNAL CONTROL VALID? YES
[2017-01-21 22:32] LABS: C DIFF TOXIN POSITIVE (NEGATIVE); PROBE CHECK PASS
[2017-01-21 23:45] VITALS: BP 102/65
[2017-01-22 08:26] VITALS: BP 118/80
[2017-01-22 13:05] LABS: HEMATOCRIT 34.2 % (38.0-50.0); MCH 31.6 PG (29.0-34.0); MCHC 33.3 G/DL (30.0-36.0); MCV 94.7 FL (86-99); MEAN PLAT.VOLUME 10.4 uM^3 (9.0-12.4); PLATELET COUNT 224 K/uL (156-360); RBC DIS.WIDTH-CV 14.3 % (11.8-14.6); RBC DIS.WIDTH-SD 49.9 % (39-53); RED BLOOD COUNT 3.61 M/uL (4.00-5.50); WHITE BLOOD COUNT 12.2 K/uL (4.1-10.2)
[2017-01-22 13:14] LABS: ANION GAP 7 MEQ/L (2-14); CHLORIDE 111 MEQ/L (99-109); POTASSIUM 4.1 MEQ/L (3.7-5.4); SAMPLE HEMOLYSIS CHECK 0; SAMPLE ICTERIC CHECK 0; SAMPLE LIPEMIA CHECK 0; SODIUM 140 MEQ/L (136-147)
[2017-01-22 13:20] LABS: GFR ESTIMATE (CALCULATED) > 59 mL/min/; GLUCOSE 97 mg/dL (70-99); UREA NITROGEN (BUN) 10 mg/dL (9-23)
[2017-01-22 13:25] LABS: IMM.PLATELET FRACTION 3.1 (1-7)
[2017-01-22 16:24] VITALS: BP 118/80
[2017-01-22 20:09] VITALS: BP 98/57
[2017-01-22 23:51] VITALS: BP 123/72
[2017-01-23 04:58] VITALS: BP 132/74
[2017-01-23 07:30] VITALS: BP 123/68
[2017-01-23 08:13] LABS: BASOPHIL COUNT 0.1 K/uL (0-0.1); EOSINOPHIL (%) 0.4 % (0-5); EOSINOPHIL COUNT 0.1 K/uL (0-0.3); HEMATOCRIT 34.5 % (38.0-50.0); IMMATURE GRANULOCYTE (%) 0.9 % (0.0-0.7); IMMATURE GRANULOCYTE COUNT 0.1 K/uL; INSTRUMENT ABS NEUTROPHIL CT 6.6 K/uL; LYMPHOCYTE COUNT 3.9 K/uL (1.0-2.8); MCHC 31.9 G/DL (30.0-36.0); MCV 97.2 FL (86-99); MEAN PLAT.VOLUME 10.4 uM^3 (9.0-12.4); MONOCYTE (%) 6.1 % (3-12); MONOCYTE COUNT 0.7 K/uL (0-0.8); NEUTROPHIL (%) 57.7 % (45-76); NEUTROPHIL COUNT 6.6 K/uL (1.8-6.4); PLATELET COUNT 194 K/uL (156-360); RBC DIS.WIDTH-CV 14.5 % (11.8-14.6); RBC DIS.WIDTH-SD 51.6 % (39-53); RED BLOOD COUNT 3.55 M/uL (4.00-5.50); WHITE BLOOD COUNT 11.4 K/uL (4.1-10.2)
[2017-01-23 08:39] LABS: CHLORIDE 113 MEQ/L (99-109); GFR ESTIMATE (CALCULATED) > 59 mL/min/; GLUCOSE 80 mg/dL (70-99); POTASSIUM 3.7 MEQ/L (3.7-5.4); SODIUM 144 MEQ/L (136-147); UREA NITROGEN (BUN) 10 mg/dL (9-23)
[2017-01-23 08:40] LABS: ALKALINE PHOSPHATASE 49 IU/L (3-129); ANION GAP 7 MEQ/L (2-14); SAMPLE HEMOLYSIS CHECK 0; SAMPLE ICTERIC CHECK 0; SAMPLE LIPEMIA CHECK 0; TOTAL BILIRUBIN 0.2 MG/DL (0.0-1.0)
[2017-01-23] MEDS ORDERED: NICOTINE PATCH1 EAC2 TD (10:43)
[2017-01-23] MEDS ORDERED: OXYCODONE HCL5 MG PO (10:43)
[2017-01-23] MEDS ORDERED: VANCOMYCIN125 MG/2.5 PO (10:43)
[2017-01-23 10:57] VITALS: BP 110/62
== END 2017-01-23 15:39 | disposition home or self-care (01) | DRG 372 ==
LOC: EME 21:32 → 3EAST 01-21 03:15 → EDOF 01-21 03:15 → 3EAST 01-21 05:30
PROVIDERS: Hospitalist
DX: A04.7 Enterocolitis due to Clostridium difficile (principal); K50.90 Crohn's disease, unspecified, without complications; I10 Essential (primary) hypertension; M06.9 Rheumatoid arthritis, unspecified; N32.1 Vesicointestinal fistula; G89.4 Chronic pain syndrome; T40.605A Adverse effect of unspecified narcotics, initial encounter; F17.210 Nicotine dependence, cigarettes, uncomplicated; F10.10 Alcohol abuse, uncomplicated; F12.90 Cannabis use, unspecified, uncomplicated; K21.9 Gastro-esophageal reflux disease without esophagitis; D64.9 Anemia, unspecified; K59.03 Drug induced constipation; Z93.3 Colostomy status; Z68.31 Body mass index [BMI] 31.0-31.9, adult; Z90.49 Acquired absence of other specified parts of digestive tract; Z86.19 Personal history of other infectious and parasitic diseases; Z87.11 Personal history of peptic ulcer disease; Z86.73 Personal history of transient ischemic attack (TIA), and cerebral infarction without residual deficits; Z91.19 Patient's noncompliance with other medical treatment and regimen; Z82.5 Family history of asthma and other chronic lower respiratory diseases; Z87.442 Personal history of urinary calculi; Z80.3 Family history of malignant neoplasm of breast; Z82.49 Family history of ischemic heart disease and other diseases of the circulatory system; K22.70 Barrett's esophagus without dysplasia
CPT/HCPCS: 74177; 80048; 80048 91; 80053; 80061; 80306 90; 81003; 82272; 82948; 83605; 83690; 83735; 85025; 85027; 85651; 86140; 86900; 86901; 87086; 87493; 94010; 99281; 99285; G0480; J1170; J1644; J2270; J2405; J2765; J2930; J3360; J7030

== ENCOUNTER 2017-01-25 19:04 | Emergency (ER) | payer OTHER ==
[~2017-01-25] VITALS: Ht 180.3 cm; Wt 97.6 kg
[~2017-01-25 19:04] MED LIST changes: +BUSPAR10 MG PO; +DESYREL 150 MG150 MG PO; +ELAVIL25 MG PO; +HYDROXYZINE HCL25 MG PO; +NICOTINE PATCH1 EAC2 TD; +RELPAX40 MG PO; +SULFASALAZINE500 MG PO; +VANCOMYCIN125 MG/2.5 PO
[2017-01-25 19:59] LABS: HEMATOCRIT 41.8 % (38.0-50.0); MCH 31.2 PG (29.0-34.0); MCHC 34.2 G/DL (30.0-36.0); MCV 91.3 FL (86-99); MEAN PLAT.VOLUME 9.5 uM^3 (9.0-12.4); PLATELET COUNT 250 K/uL (156-360); RBC DIS.WIDTH-CV 13.8 % (11.8-14.6); RBC DIS.WIDTH-SD 46.5 % (39-53); RED BLOOD COUNT 4.58 M/uL (4.00-5.50); WHITE BLOOD COUNT 11.6 K/uL (4.1-10.2)
[2017-01-25 20:01] LABS: CHLORIDE 105 mEq/L (99-109); POTASSIUM 3.6 mEq/L (3.7-5.4); SODIUM 141 mEq/L (136-147)
[2017-01-25 20:03] LABS: GLUCOSE 90 mg/dL (70-99)
[2017-01-25 20:04] LABS: ANION GAP 12 MEQ/L (2-14)
[2017-01-25 20:07] LABS: ALKALINE PHOSPHATASE 66 IU/L (3-129); GFR ESTIMATE (CALCULATED) > 59 mL/min/; TOTAL BILIRUBIN 0.7 mg/dL (0.0-1.0)
[2017-01-25 20:08] LABS: UREA NITROGEN (BUN) 6 mg/dL (9-23)
[2017-01-26 02:16] LABS: LIPASE 11 U/L (1.0-51.0)
[2017-01-26 02:22] LABS: ADD MIUA? NO; BILIRUBIN NEGATIVE; BLOOD NEGATIVE; COLOR YELLOW ((YELLOW)); GLUCOSE (STRIP) NEGATIVE; KETONES NEGATIVE; LEUKOCYTES NEGATIVE; NITRITE NEGATIVE; PROTEIN (STRIP) NEGATIVE; SPECIFIC GRAVITY 1.011 (1.000-1.030); UCUL ADDED? NO; UROBILINOGEN 0.2 MG/DL (0.2-1.0)
[2017-01-26] MEDS ORDERED: ZOFRAN4 MG PO (04:08)
[2017-01-26] MEDS ORDERED: PERCOCET 5/31 TABLET PO (04:08)
[2017-01-26 04:22] VITALS: BP 133/87
== END 2017-01-26 04:24 | disposition home or self-care (01) ==
LOC: EME 19:04
DX: R10.30 Lower abdominal pain, unspecified (principal); R11.2 Nausea with vomiting, unspecified; R19.7 Diarrhea, unspecified; A04.7 Enterocolitis due to Clostridium difficile; Z90.49 Acquired absence of other specified parts of digestive tract; K44.9 Diaphragmatic hernia without obstruction or gangrene; N20.0 Calculus of kidney; K50.90 Crohn's disease, unspecified, without complications; I10 Essential (primary) hypertension; Z87.442 Personal history of urinary calculi; F17.200 Nicotine dependence, unspecified, uncomplicated
CPT/HCPCS: 74176; 80053; 81003; 83690; 85027; 99281; 99285; J2270; J2405; J3360; J7030

== ENCOUNTER 2017-01-30 00:22 | Emergency (ER) | payer OTHER ==
[~2017-01-30] VITALS: Ht 180.3 cm; Wt 98.9 kg
[2017-01-30 01:52] LABS: HEMATOCRIT 39.2 % (38.0-50.0); MCH 31.4 PG (29.0-34.0); MCHC 33.4 G/DL (30.0-36.0); MEAN PLAT.VOLUME 9.6 uM^3 (9.0-12.4); PLATELET COUNT 247 K/uL (156-360); RBC DIS.WIDTH-CV 14.1 % (11.8-14.6); RBC DIS.WIDTH-SD 48.1 % (39-53); RED BLOOD COUNT 4.17 M/uL (4.00-5.50); WHITE BLOOD COUNT 10.2 K/uL (4.1-10.2)
[2017-01-30 02:08] LABS: CHLORIDE 110 mEq/L (99-109); POTASSIUM 3.6 mEq/L (3.7-5.4); SODIUM 140 mEq/L (136-147)
[2017-01-30 02:11] LABS: GLUCOSE 81 mg/dL (70-99)
[2017-01-30 02:12] LABS: ANION GAP 9 MEQ/L (2-14)
[2017-01-30 02:14] LABS: ALKALINE PHOSPHATASE 78 IU/L (3-129); GFR ESTIMATE (CALCULATED) > 59 mL/min/
[2017-01-30 02:15] LABS: TOTAL BILIRUBIN 0.2 mg/dL (0.0-1.0); UREA NITROGEN (BUN) 10 mg/dL (9-23)
[2017-01-30] MEDS ORDERED: PERCOCET 5/31 TABLET PO (02:25)
[2017-01-30] MEDS ORDERED: FLAGYL500 MG PO (02:25)
[2017-01-30 03:08] VITALS: BP 146/88
== END 2017-01-30 03:17 | disposition home or self-care (01) ==
LOC: EXP 00:22 → EME 00:22 → EXP 03:17
DX: K52.9 Noninfective gastroenteritis and colitis, unspecified (principal); R19.7 Diarrhea, unspecified; I10 Essential (primary) hypertension; K21.9 Gastro-esophageal reflux disease without esophagitis; R56.9 Unspecified convulsions; M06.9 Rheumatoid arthritis, unspecified; F32.9 Major depressive disorder, single episode, unspecified; F17.200 Nicotine dependence, unspecified, uncomplicated
CPT/HCPCS: 80053; 81003; 83605; 85027; 87040; 99281; 99284

== ENCOUNTER 2017-02-16 07:04 | Emergency (ER) | payer OTHER ==
[~2017-02-16] VITALS: Ht 180.3 cm; Wt 95.7 kg
[2017-02-16 07:49] LABS: CHLORIDE 113 mEq/L (99-109); POTASSIUM 3.2 mEq/L (3.7-5.4); SODIUM 141 mEq/L (136-147)
[2017-02-16 07:50] LABS: MCH 31.3 PG (29.0-34.0); MCV 92.3 FL (86-99); MEAN PLAT.VOLUME 9.8 uM^3 (9.0-12.4); RBC DIS.WIDTH-CV 12.9 % (11.8-14.6); RBC DIS.WIDTH-SD 43.6 % (39-53); RED BLOOD COUNT 4.66 M/uL (4.00-5.50); WHITE BLOOD COUNT 20.9 K/uL (4.1-10.2)
[2017-02-16 07:51] LABS: GLUCOSE 83 mg/dL (70-99); PLATELET COUNT 333 K/uL (156-360)
[2017-02-16 07:52] LABS: ANION GAP 10 MEQ/L (2-14)
[2017-02-16 07:55] LABS: GFR ESTIMATE (CALCULATED) 58 mL/min/
[2017-02-16 07:56] LABS: UREA NITROGEN (BUN) 10 mg/dL (9-23)
[2017-02-16 08:07] LABS: ADD MIUA? YES; BILIRUBIN NEGATIVE; BLOOD LARGE; COLOR YELLOW ((YELLOW)); GLUCOSE (STRIP) NEGATIVE; KETONES NEGATIVE; LEUKOCYTES NEGATIVE; NITRITE NEGATIVE; PROTEIN (STRIP) 30; SPECIFIC GRAVITY 1.016 (1.000-1.030); UROBILINOGEN 0.2 MG/DL (0.2-1.0)
[2017-02-16 08:28] LABS: BACTERIA NONE SEEN /HPF; EPITHELIAL CELLS NONE SEEN /HPF; MUCUS TRACE /LPF; RED BLOOD CELLS TNTC /HPF (0-5); UCUL ADDED? NO; WHITE BLOOD CELLS 0-5 /HPF (0-5)
[2017-02-16 17:42] VITALS: BP 106/50
== END 2017-02-16 17:45 | disposition short-term general hospital (02) ==
LOC: EME 07:04
PROVIDERS: Emergency Medicine
PROC: 05H533Z Insertion of Infusion Device into Right Subclavian Vein, Percutaneous Approach (ICD-10-PCS; principal; 2017-02-16)
DX: K56.60 Unspecified intestinal obstruction (principal); A41.9 Sepsis, unspecified organism; A04.7 Enterocolitis due to Clostridium difficile; K63.89 Other specified diseases of intestine; K55.9 Vascular disorder of intestine, unspecified; Z87.442 Personal history of urinary calculi; Z90.49 Acquired absence of other specified parts of digestive tract; I10 Essential (primary) hypertension; F17.200 Nicotine dependence, unspecified, uncomplicated
CPT/HCPCS: 71010; 74176; 80048; 81003; 83605; 85027; 87040; 99281; 99285; J2060; J2405; J2543; J3370

== ENCOUNTER 2017-03-02 17:33 | Emergency (ER) | payer OTHER ==
[~2017-03-02] VITALS: Ht 180.3 cm; Wt 88.0 kg
[2017-03-02 18:51] LABS: HEMATOCRIT 37.4 % (38.0-50.0); MCV 91.2 FL (86-99); MEAN PLAT.VOLUME 9.7 uM^3 (9.0-12.4); RBC DIS.WIDTH-CV 12.8 % (11.8-14.6); WHITE BLOOD COUNT 14.9 K/uL (4.1-10.2)
[2017-03-02 18:52] LABS: PLATELET COUNT 640 K/uL (156-360)
[2017-03-02 18:56] LABS: CHLORIDE 110 mEq/L (99-109); POTASSIUM 3.6 mEq/L (3.7-5.4); SODIUM 141 mEq/L (136-147)
[2017-03-02 18:58] LABS: GLUCOSE 104 mg/dL (70-99)
[2017-03-02 18:59] LABS: ANION GAP 11 MEQ/L (2-14)
[2017-03-02 19:00] LABS: TOTAL BILIRUBIN 0.3 mg/dL (0.0-1.0)
[2017-03-02 19:01] LABS: ALKALINE PHOSPHATASE 184 IU/L (3-129)
[2017-03-02 19:02] LABS: GFR ESTIMATE (CALCULATED) > 59 mL/min/
[2017-03-02 19:03] LABS: UREA NITROGEN (BUN) 11 mg/dL (9-23)
[2017-03-02 22:49] LABS: ADD MIUA? YES; BILIRUBIN NEGATIVE; BLOOD LARGE; COLOR YELLOW ((YELLOW)); GLUCOSE (STRIP) NEGATIVE; KETONES NEGATIVE; LEUKOCYTES NEGATIVE; NITRITE NEGATIVE; PROTEIN (STRIP) 30; UROBILINOGEN 0.2 MG/DL (0.2-1.0)
[2017-03-02 22:53] LABS: BACTERIA NONE SEEN /HPF; CALCIUM OXALATE CRYSTALS 1+ /HPF; EPITHELIAL CELLS RARE /HPF; MUCUS TRACE /LPF; RED BLOOD CELLS TNTC /HPF (0-5); UCUL ADDED? NO
[2017-03-03 07:03] VITALS: BP 119/84
== END 2017-03-03 08:34 | disposition short-term general hospital (02) ==
LOC: EME 17:33
DX: L02.211 Cutaneous abscess of abdominal wall (principal); Z87.442 Personal history of urinary calculi; K21.9 Gastro-esophageal reflux disease without esophagitis; I10 Essential (primary) hypertension; F17.200 Nicotine dependence, unspecified, uncomplicated; Z90.49 Acquired absence of other specified parts of digestive tract
CPT/HCPCS: 74177; 80053; 81003; 83605; 85027; 87040; 99281; 99285; J0744; J1170; J3010; J7030; J7050; S0030

== ENCOUNTER 2017-03-10 17:23 | Emergency (ER) | payer OTHER ==
[~2017-03-10] VITALS: Ht 180.3 cm; Wt 87.8 kg
[2017-03-10 19:34] LABS: HEMATOCRIT 40.5 % (38.0-50.0); MCH 30.4 PG (29.0-34.0); MCHC 33.3 G/DL (30.0-36.0); MCV 91.2 FL (86-99); PLATELET COUNT 484 K/uL (156-360); RBC DIS.WIDTH-CV 12.9 % (11.8-14.6); RBC DIS.WIDTH-SD 43.4 % (39-53); RED BLOOD COUNT 4.44 M/uL (4.00-5.50)
[2017-03-10 21:09] LABS: CHLORIDE 110 mEq/L (99-109); POTASSIUM 3.4 mEq/L (3.7-5.4); SODIUM 140 mEq/L (136-147)
[2017-03-10 21:11] LABS: GLUCOSE 82 mg/dL (70-99)
[2017-03-10 21:12] LABS: ANION GAP 10 MEQ/L (2-14)
[2017-03-10 21:13] LABS: TOTAL BILIRUBIN 0.3 mg/dL (0.0-1.0)
[2017-03-10 21:14] LABS: ALKALINE PHOSPHATASE 91 IU/L (3-129)
[2017-03-10 21:15] LABS: GFR ESTIMATE (CALCULATED) > 59 mL/min/
[2017-03-10 21:16] LABS: UREA NITROGEN (BUN) 10 mg/dL (9-23)
[2017-03-10 21:18] LABS: LIPASE 36 U/L (1.0-51.0)
[2017-03-10] MEDS ORDERED: PERCOCET 5/31 TABLET PO (23:27)
[2017-03-10] MEDS ORDERED: KEFLEX500 MG PO (23:27)
[2017-03-10] MEDS ORDERED: BACTRIM,SEPT1 TABLET PO (23:27)
[2017-03-10 23:49] LABS: ADD MIUA? NO; BILIRUBIN NEGATIVE; BLOOD NEGATIVE; COLOR YELLOW ((YELLOW)); GLUCOSE (STRIP) NEGATIVE; KETONES 5; LEUKOCYTES NEGATIVE; NITRITE NEGATIVE; PROTEIN (STRIP) 30; UCUL ADDED? NO; UROBILINOGEN 0.2 MG/DL (0.2-1.0)
[2017-03-11 00:19] LABS: SPECIFIC GRAVITY > 1.080 (1.000-1.030)
[2017-03-11 00:28] VITALS: BP 123/52
== END 2017-03-11 00:55 | disposition home or self-care (01) ==
LOC: EME 17:23
PROVIDERS: Emergency Medicine
DX: T81.4XXA Infection following a procedure, initial encounter (principal); L02.211 Cutaneous abscess of abdominal wall; K50.90 Crohn's disease, unspecified, without complications; Z98.890 Other specified postprocedural states; Z90.49 Acquired absence of other specified parts of digestive tract; I10 Essential (primary) hypertension; Z87.442 Personal history of urinary calculi; F17.200 Nicotine dependence, unspecified, uncomplicated
CPT/HCPCS: 74177; 80053; 81003; 83690; 85027; 99281; 99285; J1170; J2405; J3010; J7030; J7050

== ENCOUNTER 2017-03-17 20:09 | Inpatient (IN) | payer OTHER ==
[~2017-03-17] VITALS: Ht 180.3 cm; Wt 102.5 kg
[~2017-03-17 20:09] MED LIST changes: +BACTRIM,SEPT1 TABLET PO; +KEFLEX500 MG PO
[2017-03-17 21:33] LABS: HEMATOCRIT 33.7 % (38.0-50.0); MCH 29.7 PG (29.0-34.0); MCHC 32.3 G/DL (30.0-36.0); MCV 91.8 FL (86-99); RBC DIS.WIDTH-SD 43.7 % (39-53); RED BLOOD COUNT 3.67 M/uL (4.00-5.50)
[2017-03-17 21:41] LABS: CHLORIDE 115 mEq/L (99-109); POTASSIUM 3.3 mEq/L (3.7-5.4); SODIUM 144 mEq/L (136-147)
[2017-03-17 21:43] LABS: GLUCOSE 93 mg/dL (70-99)
[2017-03-17 21:45] LABS: ANION GAP 12 MEQ/L (2-14)
[2017-03-17 21:46] LABS: SERUM ETHYL ALCOHOL 44 mg/dL
[2017-03-17 21:47] LABS: GFR ESTIMATE (CALCULATED) > 59 mL/min/
[2017-03-17 21:48] LABS: UREA NITROGEN (BUN) 11 mg/dL (9-23)
[2017-03-17 22:46] LABS: MEAN PLAT.VOLUME 9.9 uM^3 (9.0-12.4); PLAT.SUFFICIENCY ADEQUATE
[2017-03-17 22:52] LABS: PLATELET COUNT 299 K/uL (156-360)
[2017-03-17 23:14] LABS: ADD MEDTOX COMMENT Y; AMPHETAMINE NEGATIVE (500 ng/mL); BARBITURATES NEGATIVE (200 ng/mL); BENZODIAZEPINES PRESUMPTIVE POSITIVE (150 ng/mL); COCAINE NEGATIVE (150 ng/mL); INTERNAL CONTROLS VALID? YES; METHADONE NEGATIVE (200 ng/mL); METHAMPHETAMINE NEGATIVE (500 ng/mL); OPIATES (MORPHINE) NEGATIVE (100 ng/mL); OXYCODONE NEGATIVE (100 ng/mL); PHENCYCLIDINE NEGATIVE (25 ng/mL); PROPOXYPHENE NEGATIVE (300 ng/mL); THC CANNABINOIDS NEGATIVE (50 ng/mL); TRICYCLIC ANTIDEPRESSANTS PRESUMPTIVE POSITIVE (300 ng/mL)
[2017-03-17 23:50] LABS: BENZODIAZEPINES, URINE SCREEN POSITIVE (200 ng/mL)
[2017-03-18 03:52] VITALS: BP 111/75
[2017-03-18] MEDS ORDERED: ATARAX,VISTARIL50 MG PO (04:51)
[2017-03-18] MEDS ORDERED: CLONAZEPAM0.5 MG PO (04:53)
[2017-03-18] MEDS ORDERED: AMITRIPTYLINE H25 MG PO (04:56)
[2017-03-18] MEDS ORDERED: WELLBUTRIN SR150 MG PO (04:59)
[2017-03-18 07:47] VITALS: BP 105/64
[2017-03-18] MEDS ORDERED: WELLBUTRIN XL150 MG PO (11:16)
[2017-03-18 15:48] VITALS: BP 104/69
[2017-03-19 07:36] VITALS: BP 106/56
[2017-03-19] MEDS ORDERED: INDERAL10 MG PO (09:30)
[2017-03-19] MEDS ORDERED: PAXIL20 MG PO (09:30)
== END 2017-03-19 13:50 | disposition home health service (06) | DRG 885 ==
LOC: EME 20:09 → 1WEST 23:21 → EDOF 23:21 → ENRESERV 03-18 03:37 → 1WEST 03-18 03:37
PROVIDERS: Emergency Medicine
DX: F33.2 Major depressive disorder, recurrent severe without psychotic features (principal); F40.10 Social phobia, unspecified; F60.9 Personality disorder, unspecified; M06.9 Rheumatoid arthritis, unspecified; K50.90 Crohn's disease, unspecified, without complications; F40.01 Agoraphobia with panic disorder; F17.200 Nicotine dependence, unspecified, uncomplicated; I10 Essential (primary) hypertension; K21.9 Gastro-esophageal reflux disease without esophagitis; Z76.5 Malingerer [conscious simulation]; T81.89XA Other complications of procedures, not elsewhere classified, initial encounter; T42.4X2A Poisoning by benzodiazepines, intentional self-harm, initial encounter
CPT/HCPCS: 80048; 84999; 85027; 90837; 93005; 99281; 99285; G0480; J7030

== ENCOUNTER 2017-03-22 21:00 | Emergency (ER) | payer OTHER ==
[~2017-03-22] VITALS: Ht 180.3 cm; Wt 88.4 kg
[~2017-03-22 21:00] MED LIST changes: +AMITRIPTYLINE H25 MG PO; +ATARAX,VISTARIL50 MG PO; +CLONAZEPAM0.5 MG PO; +INDERAL10 MG PO; +PAXIL20 MG PO
[2017-03-22 22:02] LABS: HEMATOCRIT 38.7 % (38.0-50.0); MCH 30.2 PG (29.0-34.0); MCHC 33.9 G/DL (30.0-36.0); MCV 89.2 FL (86-99); MEAN PLAT.VOLUME 9.5 uM^3 (9.0-12.4); PLATELET COUNT 380 K/uL (156-360); RBC DIS.WIDTH-CV 13.2 % (11.8-14.6); RBC DIS.WIDTH-SD 43.8 % (39-53); RED BLOOD COUNT 4.34 M/uL (4.00-5.50); WHITE BLOOD COUNT 15.9 K/uL (4.1-10.2)
[2017-03-22 22:10] LABS: CHLORIDE 110 mEq/L (99-109); POTASSIUM 3.4 mEq/L (3.7-5.4); SODIUM 142 mEq/L (136-147)
[2017-03-22 22:12] LABS: GLUCOSE 84 mg/dL (70-99)
[2017-03-22 22:14] LABS: ANION GAP 16 MEQ/L (2-14)
[2017-03-22 22:15] LABS: SERUM ETHYL ALCOHOL 312 mg/dL
[2017-03-22 22:16] LABS: GFR ESTIMATE (CALCULATED) 43 mL/min/
[2017-03-22 22:17] LABS: UREA NITROGEN (BUN) 10 mg/dL (9-23)
[2017-03-22 23:37] LABS: AMPHETAMINE NEGATIVE (500 ng/mL); BARBITURATES NEGATIVE (200 ng/mL); BENZODIAZEPINES NEGATIVE (150 ng/mL); COCAINE NEGATIVE (150 ng/mL); INTERNAL CONTROLS VALID? YES; METHADONE NEGATIVE (200 ng/mL); METHAMPHETAMINE NEGATIVE (500 ng/mL); OPIATES (MORPHINE) NEGATIVE (100 ng/mL); OXYCODONE NEGATIVE (100 ng/mL); PHENCYCLIDINE NEGATIVE (25 ng/mL); PROPOXYPHENE NEGATIVE (300 ng/mL); THC CANNABINOIDS NEGATIVE (50 ng/mL); TRICYCLIC ANTIDEPRESSANTS PRESUMPTIVE POSITIVE (300 ng/mL)
[2017-03-23] MEDS ORDERED: OMEPRAZOLE40 M1 PO (06:16)
[2017-03-23 10:17] VITALS: BP 117/77
== END 2017-03-23 10:18 | disposition home or self-care (01) ==
LOC: EME 21:00
DX: F33.2 Major depressive disorder, recurrent severe without psychotic features (principal); F10.129 Alcohol abuse with intoxication, unspecified; R45.851 Suicidal ideations; Z76.5 Malingerer [conscious simulation]; F19.10 Other psychoactive substance abuse, uncomplicated; I10 Essential (primary) hypertension; K50.90 Crohn's disease, unspecified, without complications
CPT/HCPCS: 80048; 85027; 90837; 99281; 99285; G0480; J1885; J2405; J7030

== ENCOUNTER 2017-06-25 00:21 | Inpatient (IN) | payer OTHER ==
[~2017-06-25] VITALS: Ht 180.3 cm; Wt 86.4 kg
[~2017-06-25 00:21] MED LIST changes: +CITRATE OF MAG296 ML PO
[2017-06-25 01:34] LABS: HEMATOCRIT 44.5 % (38.0-50.0); MCH 27.8 PG (29.0-34.0); MCHC 33.3 G/DL (30.0-36.0); MCV 83.6 FL (86-99); PLATELET COUNT 352 K/uL (156-360); RBC DIS.WIDTH-CV 15.2 % (11.8-14.6); RBC DIS.WIDTH-SD 46.3 % (39-53); RED BLOOD COUNT 5.32 M/uL (4.00-5.50); WHITE BLOOD COUNT 13.6 K/uL (4.1-10.2)
[2017-06-25 01:48] LABS: CHLORIDE 107 mEq/L (99-109); SODIUM 141 mEq/L (136-147)
[2017-06-25 01:50] LABS: GLUCOSE 102 mg/dL (70-99)
[2017-06-25 01:51] LABS: ANION GAP 14 MEQ/L (2-14)
[2017-06-25 01:54] LABS: ALKALINE PHOSPHATASE 94 IU/L (3-129); GFR ESTIMATE (CALCULATED) > 59 mL/min/
[2017-06-25 01:55] LABS: UREA NITROGEN (BUN) 10 mg/dL (9-23)
[2017-06-25 02:02] LABS: TOTAL BILIRUBIN 0.5 mg/dL (0.0-1.0)
[2017-06-25 03:12] LABS: LIPASE 18 U/L (1.0-51.0)
[2017-06-25] MEDS ORDERED: PERCOCET 5/31 TABLET PO (04:34)
[2017-06-25] MEDS ORDERED: PROMETHAZINE HC25 M1 PO (04:34)
[2017-06-25 04:50] LABS: CREATINE KINASE 796 IU/L (1-294)
[2017-06-25 05:53] LABS: ADD MIUA? NO; BILIRUBIN NEGATIVE; BLOOD NEGATIVE; COLOR YELLOW ((YELLOW)); GLUCOSE (STRIP) NEGATIVE; KETONES NEGATIVE; LEUKOCYTES NEGATIVE; NITRITE NEGATIVE; PROTEIN (STRIP) NEGATIVE; SPECIFIC GRAVITY 1.034 (1.000-1.030); UCUL ADDED? NO
[2017-06-25 06:29] VITALS: BP 172/105
[2017-06-25 08:56] VITALS: BP 142/89
[2017-06-25 11:17] VITALS: BP 140/85
[2017-06-25] MEDS ORDERED: BENTYL10 MG PO (11:43)
[2017-06-25] MEDS ORDERED: OMEPRAZOLE40 M1 PO (11:44)
[2017-06-25] MEDS ORDERED: PAXIL40 MG PO (11:45)
[2017-06-25] MEDS ORDERED: ZOFRAN ODT4 MG PO (11:45)
[2017-06-25] MEDS ORDERED: NICODERM CQ1 EAC1 TD (11:46)
[2017-06-25] MEDS ORDERED: TYLENOL EXTRA500 MG PO (11:46)
[2017-06-25] MEDS ORDERED: KLONOPIN0.5 M1 PO (11:46)
[2017-06-25] MEDS ORDERED: NEURONTIN600 MG PO (11:47)
[2017-06-25] MEDS ORDERED: REMERON15 M2 PO (11:48)
[2017-06-25] MEDS ORDERED: BENADRYL25 MG PO (11:49)
[2017-06-25 19:00] VITALS: BP 147/90
[2017-06-25 23:41] VITALS: BP 159/100
[2017-06-25 23:44] VITALS: BP 126/60
[2017-06-26 06:03] LABS: C DIFF TOXIN POSITIVE (NEGATIVE)
[2017-06-26 06:04] LABS: HEMATOCRIT 35.3 % (38.0-50.0); MCH 27.4 PG (29.0-34.0); MCHC 32.3 G/DL (30.0-36.0); MCV 84.9 FL (86-99); RBC DIS.WIDTH-CV 15.2 % (11.8-14.6); RBC DIS.WIDTH-SD 46.8 % (39-53); RED BLOOD COUNT 4.16 M/uL (4.00-5.50); WHITE BLOOD COUNT 7.5 K/uL (4.1-10.2)
[2017-06-26 06:07] LABS: PROBE CHECK PASS
[2017-06-26 06:09] LABS: ALKALINE PHOSPHATASE 65 IU/L (3-129); ANION GAP 6 MEQ/L (2-14); CHLORIDE 109 MEQ/L (99-109); GFR ESTIMATE (CALCULATED) > 59 mL/min/; GLUCOSE 78 mg/dL (70-99); POTASSIUM 3.9 MEQ/L (3.7-5.4); SAMPLE HEMOLYSIS CHECK 0; SAMPLE ICTERIC CHECK 0; SAMPLE LIPEMIA CHECK 0; SODIUM 138 MEQ/L (136-147); TOTAL BILIRUBIN 0.5 MG/DL (0.0-1.0); UREA NITROGEN (BUN) 6 mg/dL (9-23)
[2017-06-26 07:12] LABS: MEAN PLAT.VOLUME 10.1 uM^3 (9.0-12.4); PLAT.SUFFICIENCY ADEQUATE
[2017-06-26 07:14] LABS: PLATELET COUNT 238 K/uL (156-360)
[2017-06-26 08:30] VITALS: BP 166/108
[2017-06-26 11:41] VITALS: BP 132/100
[2017-06-26 15:53] VITALS: BP 134/88
[2017-06-26 20:00] VITALS: BP 136/93
[2017-06-27] VITALS: BP 169/102
[2017-06-27 08:50] VITALS: BP 129/81
[2017-06-27] MEDS ORDERED: BENTYL10 MG PO (09:58)
[2017-06-27] MEDS ORDERED: FLORASTOR250 MG PO (09:59)
[2017-06-27] MEDS ORDERED: VANCOMYCIN HCL250 MG PO (10:00)
[2017-06-27] MEDS ORDERED: METRONIDAZOLE500 MG PO (10:00)
[2017-06-27 10:01] LABS: HEMATOCRIT 35.9 % (38.0-50.0); MCH 28.3 PG (29.0-34.0); MCHC 33.7 G/DL (30.0-36.0); MCV 84.1 FL (86-99); MEAN PLAT.VOLUME 10.6 uM^3 (9.0-12.4); PLATELET COUNT 239 K/uL (156-360); RBC DIS.WIDTH-CV 15.3 % (11.8-14.6); RBC DIS.WIDTH-SD 46.7 % (39-53); RED BLOOD COUNT 4.27 M/uL (4.00-5.50); WHITE BLOOD COUNT 7.5 K/uL (4.1-10.2)
[2017-06-27] MEDS ORDERED: ZOFRAN4 MG PO (10:01)
[2017-06-27] MEDS ORDERED: PERCOCET 5/31 TABLET PO (10:17)
== END 2017-06-27 11:10 | disposition home or self-care (01) | DRG 372 ==
LOC: EME 00:21 → EDOF 04:56 → ENRESERV 04:58 → 5WEST 05:51 → ENRESERV 06-26 08:09 → CANRESERV 06-26 08:09 → 5WEST 06-27 11:10
PROVIDERS: Nurse Practitioner Adult Health; Physician Assistant Medical
DX: A04.71 Enterocolitis due to Clostridium difficile, recurrent (principal); F17.210 Nicotine dependence, cigarettes, uncomplicated; F31.9 Bipolar disorder, unspecified; G89.29 Other chronic pain; I10 Essential (primary) hypertension; K50.90 Crohn's disease, unspecified, without complications; M06.9 Rheumatoid arthritis, unspecified; M62.82 Rhabdomyolysis; Z91.5 Personal history of self-harm; F41.9 Anxiety disorder, unspecified
CPT/HCPCS: 74177; 80048; 80053; 80076; 81003; 82550; 83605; 83690; 85025; 85027; 87086; 87493; 99281; 99285; G0378; J1200; J1650; J2405; J2765; J3010; J7030; S0028; S0030

== ENCOUNTER 2017-07-05 03:00 | Inpatient (IN) | payer OTHER ==
[~2017-07-05] VITALS: Ht 180.3 cm; Wt 84.2 kg
[~2017-07-05 03:00] MED LIST changes: -ATARAX,VISTARIL50 MG PO; +BENADRYL25 MG PO; +FLORASTOR250 MG PO; +METRONIDAZOLE500 MG PO; +NEURONTIN600 MG PO; +NICODERM CQ1 EAC1 TD; +PAXIL40 MG PO; +PROMETHAZINE HC25 M1 PO; +TYLENOL EXTRA500 MG PO; +VANCOMYCIN HCL250 MG PO
[2017-07-05 04:21] LABS: CHLORIDE 109 mEq/L (99-109); POTASSIUM 3.5 mEq/L (3.7-5.4); SODIUM 137 mEq/L (136-147)
[2017-07-05 04:24] LABS: GLUCOSE 100 mg/dL (70-99)
[2017-07-05 04:25] LABS: ANION GAP 11 MEQ/L (2-14)
[2017-07-05 04:26] LABS: HEMATOCRIT 42.2 % (38.0-50.0); MCH 28.1 PG (29.0-34.0); MCHC 33.9 G/DL (30.0-36.0); MCV 82.9 FL (86-99); MEAN PLAT.VOLUME 9.9 uM^3 (9.0-12.4); PLATELET COUNT 348 K/uL (156-360); RBC DIS.WIDTH-CV 15.8 % (11.8-14.6); RED BLOOD COUNT 5.09 M/uL (4.00-5.50); TOTAL BILIRUBIN 0.5 mg/dL (0.0-1.0); WHITE BLOOD COUNT 14.8 K/uL (4.1-10.2)
[2017-07-05 04:27] LABS: ALKALINE PHOSPHATASE 88 IU/L (3-129); GFR ESTIMATE (CALCULATED) > 59 mL/min/
[2017-07-05 04:28] LABS: UREA NITROGEN (BUN) 13 mg/dL (9-23)
[2017-07-05 04:31] LABS: LIPASE 13 U/L (1.0-51.0)
[2017-07-05 04:31] LABS: ADD MIUA? YES; BILIRUBIN SMALL; BLOOD SMALL; COLOR AMBER ((YELLOW)); GLUCOSE (STRIP) NEGATIVE; KETONES 5; LEUKOCYTES NEGATIVE; NITRITE NEGATIVE; PROTEIN (STRIP) 100; SPECIFIC GRAVITY 1.028 (1.000-1.030)
[2017-07-05 04:35] LABS: BACTERIA RARE /HPF; EPITHELIAL CELLS RARE /HPF; MUCUS 2+ /LPF; RED BLOOD CELLS 0-5 /HPF (0-5); UCUL ADDED? YES
[2017-07-05] MEDS ORDERED: ATARAX,VISTARIL50 MG PO (09:24)
[2017-07-05] MEDS ORDERED: REMERON15 M2 PO (09:25)
[2017-07-05 10:07] VITALS: BP 141/97
[2017-07-05 17:39] VITALS: BP 142/93
[2017-07-05 19:25] VITALS: BP 122/77
[2017-07-05 23:48] VITALS: BP 132/80
[2017-07-06] VITALS (7 sets, daily range): BP systolic 132–178; BP diastolic 83–107
[2017-07-06 06:33] LABS: HEMATOCRIT 41.8 % (38.0-50.0); MCH 27.3 PG (29.0-34.0); MCHC 31.8 G/DL (30.0-36.0); MCV 85.8 FL (86-99); MEAN PLAT.VOLUME 9.6 uM^3 (9.0-12.4); PLATELET COUNT 299 K/uL (156-360); RBC DIS.WIDTH-CV 15.9 % (11.8-14.6); RBC DIS.WIDTH-SD 50.4 % (39-53); RED BLOOD COUNT 4.87 M/uL (4.00-5.50); WHITE BLOOD COUNT 8.1 K/uL (4.1-10.2)
[2017-07-06 06:35] LABS: HEMATOCRIT 41.8 % (38.0-50.0); MCH 27.3 PG (29.0-34.0); MCHC 31.6 G/DL (30.0-36.0); MCV 86.5 FL (86-99); MEAN PLAT.VOLUME 9.7 uM^3 (9.0-12.4); PLATELET COUNT 300 K/uL (156-360); RBC DIS.WIDTH-CV 15.9 % (11.8-14.6); RBC DIS.WIDTH-SD 50.6 % (39-53); RED BLOOD COUNT 4.83 M/uL (4.00-5.50); WHITE BLOOD COUNT 8.1 K/uL (4.1-10.2)
[2017-07-06 06:54] LABS: ALKALINE PHOSPHATASE 66 IU/L (3-129); ANION GAP 10 MEQ/L (2-14); CHLORIDE 111 MEQ/L (99-109); GFR ESTIMATE (CALCULATED) > 59 mL/min/; GLUCOSE 102 mg/dL (70-99); SAMPLE HEMOLYSIS CHECK 0; SAMPLE ICTERIC CHECK 0; SAMPLE LIPEMIA CHECK 0; SODIUM 141 MEQ/L (136-147); TOTAL BILIRUBIN 0.4 MG/DL (0.0-1.0); UREA NITROGEN (BUN) 8 mg/dL (9-23)
[2017-07-06 11:24] LABS: INTERNAL CONTROL VALID? YES
[2017-07-07 03:51] VITALS: BP 131/85
[2017-07-07 06:59] VITALS: BP 132/80
[2017-07-07] MEDS ORDERED: VANCOMYCIN HCL125 MG PO (09:39)
[2017-07-07] MEDS ORDERED: ONDANSETRON ODT4 MG PO (09:39)
[2017-07-07] MEDS ORDERED: ENDOCET 5-3251 EACH PO (10:48)
== END 2017-07-07 11:02 | disposition home or self-care (01) | DRG 372 ==
LOC: EME 03:00 → EDOF 07:39 → 5SOUTH 07:39 → ENRESERV 07:42 → EDOF 07:58 → ENRESERV 08:55 → 5SOUTH 09:51
PROVIDERS: Internal Medicine Gastroenterology; Nurse Practitioner Adult Health
DX: A04.71 Enterocolitis due to Clostridium difficile, recurrent (principal); K50.90 Crohn's disease, unspecified, without complications; K56.7 Ileus, unspecified; E86.0 Dehydration; E87.6 Hypokalemia; F17.210 Nicotine dependence, cigarettes, uncomplicated; F31.9 Bipolar disorder, unspecified; G89.29 Other chronic pain; I10 Essential (primary) hypertension; M06.9 Rheumatoid arthritis, unspecified; F41.9 Anxiety disorder, unspecified; Z87.442 Personal history of urinary calculi; Z88.5 Allergy status to narcotic agent; Z88.6 Allergy status to analgesic agent; Z90.49 Acquired absence of other specified parts of digestive tract; Z80.3 Family history of malignant neoplasm of breast; Z82.49 Family history of ischemic heart disease and other diseases of the circulatory system
CPT/HCPCS: 74020; 80053; 81003; 82272; 83605; 83690; 85027; 87040; 87086; 90686; 99281; 99285; C9113; J1650; J2405; J3010; J7030; J7120; S0030

== ENCOUNTER 2017-07-12 23:32 | Emergency (ER) | payer OTHER ==
[~2017-07-12] VITALS: Ht 180.3 cm; Wt 86.7 kg
[~2017-07-12 23:32] MED LIST changes: +ATARAX,VISTARIL50 MG PO; +ENDOCET 5-3251 EACH PO; +ONDANSETRON ODT4 MG PO; +REMERON15 M2 PO; +VANCOMYCIN HCL125 MG PO
[2017-07-13 00:20] LABS: HEMATOCRIT 41.9 % (38.0-50.0); MCH 27.7 PG (29.0-34.0); MCHC 33.4 G/DL (30.0-36.0); MCV 82.8 FL (86-99); MEAN PLAT.VOLUME 10.1 uM^3 (9.0-12.4); PLATELET COUNT 376 K/uL (156-360); RBC DIS.WIDTH-CV 16.4 % (11.8-14.6); RBC DIS.WIDTH-SD 49.7 % (39-53); RED BLOOD COUNT 5.06 M/uL (4.00-5.50); WHITE BLOOD COUNT 11.6 K/uL (4.1-10.2)
[2017-07-13 00:32] LABS: CHLORIDE 107 mEq/L (99-109); POTASSIUM 3.4 mEq/L (3.7-5.4); SODIUM 140 mEq/L (136-147)
[2017-07-13 00:34] LABS: GLUCOSE 110 mg/dL (70-99)
[2017-07-13 00:35] LABS: ANION GAP 13 MEQ/L (2-14)
[2017-07-13 00:36] LABS: TOTAL BILIRUBIN 0.5 mg/dL (0.0-1.0)
[2017-07-13 00:38] LABS: ALKALINE PHOSPHATASE 81 IU/L (3-129); GFR ESTIMATE (CALCULATED) > 59 mL/min/
[2017-07-13 00:39] LABS: UREA NITROGEN (BUN) 15 mg/dL (9-23)
[2017-07-13 03:30] VITALS: BP 170/118
== END 2017-07-13 03:31 | disposition home or self-care (01) ==
LOC: EME 23:32
DX: K52.9 Noninfective gastroenteritis and colitis, unspecified (principal); Z86.19 Personal history of other infectious and parasitic diseases; K50.90 Crohn's disease, unspecified, without complications; I10 Essential (primary) hypertension; F41.9 Anxiety disorder, unspecified; F32.9 Major depressive disorder, single episode, unspecified; M06.9 Rheumatoid arthritis, unspecified; F17.200 Nicotine dependence, unspecified, uncomplicated; Z88.5 Allergy status to narcotic agent; Z88.6 Allergy status to analgesic agent
CPT/HCPCS: 80053; 81003; 85027; 99281; 99285; J2405; J7030

== ENCOUNTER 2017-07-17 13:59 | Emergency (ER) | payer OTHER ==
[~2017-07-17] VITALS: Ht 180.3 cm; Wt 85.6 kg
[2017-07-17 14:37] LABS: HEMATOCRIT 39.4 % (38.0-50.0); MCH 27.9 PG (29.0-34.0); MCHC 33.8 G/DL (30.0-36.0); MCV 82.8 FL (86-99); MEAN PLAT.VOLUME 10.1 uM^3 (9.0-12.4); PLATELET COUNT 312 K/uL (156-360); RBC DIS.WIDTH-CV 16.3 % (11.8-14.6); RBC DIS.WIDTH-SD 49.3 % (39-53); RED BLOOD COUNT 4.76 M/uL (4.00-5.50); WHITE BLOOD COUNT 10.3 K/uL (4.1-10.2)
[2017-07-17 14:46] LABS: CHLORIDE 110 mEq/L (99-109); POTASSIUM 3.4 mEq/L (3.7-5.4); SODIUM 141 mEq/L (136-147)
[2017-07-17 14:48] LABS: GLUCOSE 86 mg/dL (70-99)
[2017-07-17 14:49] LABS: ANION GAP 11 MEQ/L (2-14)
[2017-07-17 14:50] LABS: TOTAL BILIRUBIN 0.4 mg/dL (0.0-1.0)
[2017-07-17 14:51] LABS: ALKALINE PHOSPHATASE 75 IU/L (3-129)
[2017-07-17 14:52] LABS: GFR ESTIMATE (CALCULATED) > 59 mL/min/
[2017-07-17 14:53] LABS: UREA NITROGEN (BUN) 8 mg/dL (9-23)
[2017-07-17 17:08] LABS: ADD MIUA? YES; BILIRUBIN NEGATIVE; BLOOD NEGATIVE; COLOR AMBER ((YELLOW)); GLUCOSE (STRIP) NEGATIVE; KETONES 5; LEUKOCYTES TRACE; NITRITE NEGATIVE; PROTEIN (STRIP) 30; SPECIFIC GRAVITY 1.019 (1.000-1.030); UROBILINOGEN 0.2 MG/DL (0.2-1.0)
[2017-07-17 17:11] LABS: BACTERIA RARE /HPF; EPITHELIAL CELLS RARE /HPF; MUCUS TRACE /LPF; RED BLOOD CELLS 0-5 /HPF (0-5); UCUL ADDED? NO; WHITE BLOOD CELLS 0-5 /HPF (0-5)
[2017-07-17] MEDS ORDERED: ACETAMINOPHEN-1 EAC1 PO (18:52)
[2017-07-17] MEDS ORDERED: ZOFRAN ODT4 MG PO (18:52)
[2017-07-17 19:00] VITALS: BP 178/108
== END 2017-07-17 19:02 | disposition home or self-care (01) ==
LOC: EME 13:59
DX: R10.30 Lower abdominal pain, unspecified (principal); K50.90 Crohn's disease, unspecified, without complications; I10 Essential (primary) hypertension; M06.9 Rheumatoid arthritis, unspecified; F41.9 Anxiety disorder, unspecified; Z87.442 Personal history of urinary calculi; F32.9 Major depressive disorder, single episode, unspecified; F17.200 Nicotine dependence, unspecified, uncomplicated; Z88.5 Allergy status to narcotic agent; Z88.6 Allergy status to analgesic agent
CPT/HCPCS: 74020; 80053; 81003; 85027; 99281; 99284

== ENCOUNTER 2017-07-30 02:25 | Emergency (ER) | payer OTHER ==
[~2017-07-30] VITALS: Ht 180.3 cm; Wt 84.9 kg
[~2017-07-30 02:25] MED LIST changes: +ACETAMINOPHEN-1 EAC1 PO
[2017-07-30 03:06] LABS: HEMATOCRIT 37.8 % (38.0-50.0); MCH 27.9 PG (29.0-34.0); MCHC 33.6 G/DL (30.0-36.0); MCV 83.1 FL (86-99); MEAN PLAT.VOLUME 10.1 uM^3 (9.0-12.4); PLATELET COUNT 323 K/uL (156-360); RBC DIS.WIDTH-CV 17.1 % (11.8-14.6); RBC DIS.WIDTH-SD 52.1 % (39-53); RED BLOOD COUNT 4.55 M/uL (4.00-5.50); WHITE BLOOD COUNT 11.8 K/uL (4.1-10.2)
[2017-07-30 03:29] LABS: ALKALINE PHOSPHATASE 71 IU/L (3-129); ANION GAP 10 MEQ/L (2-14); CHLORIDE 110 MEQ/L (99-109); GFR ESTIMATE (CALCULATED) > 59 mL/min/ (58.99-99999); GLUCOSE 104 mg/dL (70-99); POTASSIUM 3.5 MEQ/L (3.7-5.4); SAMPLE HEMOLYSIS CHECK 0; SAMPLE ICTERIC CHECK 0; SAMPLE LIPEMIA CHECK 0; SODIUM 140 MEQ/L (136-147); TOTAL BILIRUBIN 0.6 MG/DL (0.0-1.0); UREA NITROGEN (BUN) 11 mg/dL (9-23)
[2017-07-30] MEDS ORDERED: PERCOCET 5/31 TABLET PO (07:37)
[2017-07-30] MEDS ORDERED: ZOFRAN4 MG PO (07:37)
[2017-07-30 08:00] VITALS: BP 128/69
== END 2017-07-30 08:21 | disposition home or self-care (01) ==
LOC: EME 02:25
DX: K50.911 Crohn's disease, unspecified, with rectal bleeding (principal); N20.0 Calculus of kidney; N28.1 Cyst of kidney, acquired; Z90.49 Acquired absence of other specified parts of digestive tract; Z87.442 Personal history of urinary calculi; Z72.0 Tobacco use
CPT/HCPCS: 74177; 80053; 81003; 85027; 87493; 87506; J2270; J2405; J3010; J7030

== ENCOUNTER 2017-08-02 21:06 | Observation (INO) | payer OTHER ==
[~2017-08-02] VITALS: Ht 180.3 cm; Wt 81.6 kg
[2017-08-02 21:58] LABS: HEMATOCRIT 41.6 % (38.0-50.0); MCH 28.5 PG (29.0-34.0); MCHC 34.4 G/DL (30.0-36.0); MCV 82.9 FL (86-99); MEAN PLAT.VOLUME 10.4 uM^3 (9.0-12.4); PLATELET COUNT 333 K/uL (156-360); RBC DIS.WIDTH-CV 17.1 % (11.8-14.6); RED BLOOD COUNT 5.02 M/uL (4.00-5.50); WHITE BLOOD COUNT 11.1 K/uL (4.1-10.2)
[2017-08-02 22:07] LABS: CHLORIDE 109 mEq/L (99-109); POTASSIUM 3.6 mEq/L (3.7-5.4); SODIUM 141 mEq/L (136-147)
[2017-08-02 22:09] LABS: GLUCOSE 91 mg/dL (70-99)
[2017-08-02 22:11] LABS: ANION GAP 15 MEQ/L (2-14); TOTAL BILIRUBIN 0.5 mg/dL (0.0-1.0)
[2017-08-02 22:13] LABS: ALKALINE PHOSPHATASE 82 IU/L (3-129); GFR ESTIMATE (CALCULATED) > 59 mL/min/ (58.99-99999)
[2017-08-02 22:14] LABS: UREA NITROGEN (BUN) 11 mg/dL (9-23)
[2017-08-02 22:21] LABS: ADD MIUA? YES; BILIRUBIN SMALL; BLOOD LARGE; COLOR AMBER ((YELLOW)); GLUCOSE (STRIP) NEGATIVE; KETONES 20; LEUKOCYTES NEGATIVE; NITRITE NEGATIVE; PROTEIN (STRIP) 100; SPECIFIC GRAVITY 1.028 (1.000-1.030)
[2017-08-02 22:37] LABS: BACTERIA 1+ /HPF; EPITHELIAL CELLS NONE SEEN /HPF; MUCUS NONE SEEN /LPF; RED BLOOD CELLS TNTC /HPF (0-5); UCUL ADDED? YES; WHITE BLOOD CELLS 0-5 /HPF (0-5)
[2017-08-02 22:59] LABS: INTER. NORMALIZED RATIO 1.1; PROTHROMBIN TIME 12.6 SEC (10.2-12.9)
[2017-08-02 23:00] LABS: LIPASE 9 U/L (1.0-51.0)
[2017-08-02 23:01] LABS: PTT 33.7 SEC (25-37)
[2017-08-03] MEDS ORDERED: FLORASTOR250 MG PO (02:02)
[2017-08-03] MEDS ORDERED: ATARAX,VISTARIL50 MG PO (02:03)
[2017-08-03 02:53] VITALS: BP 165/109
[2017-08-03 07:32] VITALS: BP 162/105
[2017-08-03 09:14] LABS: HEMATOCRIT 35.8 % (38.0-50.0); MCH 27.5 PG (29.0-34.0); MCHC 32.7 G/DL (30.0-36.0); MCV 84.2 FL (86-99); MEAN PLAT.VOLUME 10.1 uM^3 (9.0-12.4); PLATELET COUNT 266 K/uL (156-360); RBC DIS.WIDTH-CV 17.1 % (11.8-14.6); RBC DIS.WIDTH-SD 52.6 % (39-53); RED BLOOD COUNT 4.25 M/uL (4.00-5.50); WHITE BLOOD COUNT 9.6 K/uL (4.1-10.2)
[2017-08-03 09:28] LABS: ANION GAP 6 MEQ/L (2-14); CHLORIDE 111 MEQ/L (99-109); GFR ESTIMATE (CALCULATED) > 59 mL/min/ (58.99-99999); GLUCOSE 113 mg/dL (70-99); POTASSIUM 3.6 MEQ/L (3.7-5.4); SAMPLE HEMOLYSIS CHECK 0; SAMPLE ICTERIC CHECK 0; SAMPLE LIPEMIA CHECK 0; SODIUM 138 MEQ/L (136-147); UREA NITROGEN (BUN) 9 mg/dL (9-23)
[2017-08-03 10:27] LABS: MAGNESIUM 1.8 mg/dl (1.3-2.7)
[2017-08-03 14:22] VITALS: BP 153/93
[2017-08-03 17:00] VITALS: BP 160/100
[2017-08-04 00:03] VITALS: BP 165/106
[2017-08-04 00:47] VITALS: BP 148/92
[2017-08-04 05:05] LABS: HEMATOCRIT 38.5 % (38.0-50.0); MCH 27.9 PG (29.0-34.0); MCHC 33.2 G/DL (30.0-36.0); MCV 84.1 FL (86-99); MEAN PLAT.VOLUME 10.5 uM^3 (9.0-12.4); PLATELET COUNT 248 K/uL (156-360); RBC DIS.WIDTH-CV 17.1 % (11.8-14.6); RBC DIS.WIDTH-SD 52.1 % (39-53); RED BLOOD COUNT 4.58 M/uL (4.00-5.50)
[2017-08-04 05:19] LABS: CHLORIDE 111 mEq/L (99-109); POTASSIUM 3.6 mEq/L (3.7-5.4); SODIUM 141 mEq/L (136-147)
[2017-08-04 05:21] LABS: GLUCOSE 101 mg/dL (70-99)
[2017-08-04 05:22] LABS: ANION GAP 11 MEQ/L (2-14)
[2017-08-04 05:25] LABS: GFR ESTIMATE (CALCULATED) > 59 mL/min/ (58.99-99999)
[2017-08-04 05:26] LABS: UREA NITROGEN (BUN) 5 mg/dL (9-23)
[2017-08-04] MEDS ORDERED: PROCHLORPERAZINE5 MG PO (07:13)
[2017-08-04] MEDS ORDERED: K-DUR20 MEQ PO (08:06)
[2017-08-04 08:13] VITALS: BP 137/91
== END 2017-08-04 10:02 | disposition home or self-care (01) ==
LOC: EME 21:06 → EDOF 08-03 01:30 → ENRESERV 08-03 01:33 → 5WEST 08-03 02:43 → ENPENDDIS 08-04 → 5WEST 08-04 10:02
PROVIDERS: Internal Medicine; Physician Assistant
DX: G89.29 Other chronic pain (principal); R10.9 Unspecified abdominal pain; Z86.19 Personal history of other infectious and parasitic diseases; R19.7 Diarrhea, unspecified; R11.2 Nausea with vomiting, unspecified; M06.9 Rheumatoid arthritis, unspecified; I10 Essential (primary) hypertension; R31.29 Other microscopic hematuria; F31.9 Bipolar disorder, unspecified; F41.9 Anxiety disorder, unspecified; Z91.5 Personal history of self-harm; K29.70 Gastritis, unspecified, without bleeding; Z86.010 Personal history of colon polyps; Z87.11 Personal history of peptic ulcer disease; Z90.49 Acquired absence of other specified parts of digestive tract; F17.210 Nicotine dependence, cigarettes, uncomplicated; Z80.8 Family history of malignant neoplasm of other organs or systems; Z82.49 Family history of ischemic heart disease and other diseases of the circulatory system; Z82.5 Family history of asthma and other chronic lower respiratory diseases; Z88.5 Allergy status to narcotic agent; Z88.6 Allergy status to analgesic agent
CPT/HCPCS: 80048; 80053; 81003; 83605; 83630; 83690; 83735; 84100; 85027; 85610; 85730; 87040; 87086; 87493; 99281; 99285; G0378; J1170; J2405; J2765; J3010; J7030; J7050; Q0177

== ENCOUNTER 2017-08-15 03:38 | Inpatient (IN) | payer OTHER ==
[~2017-08-15] VITALS: Ht 180.3 cm; Wt 82.9 kg
[~2017-08-15 03:38] MED LIST changes: +K-DUR20 MEQ PO; +PROCHLORPERAZINE5 MG PO
[2017-08-15 04:09] LABS: HEMATOCRIT 44.9 % (38.0-50.0); HEMOGLOBIN 14.7 G/DL (12.5-16.6); MCH 27.9 PG (29.0-34.0); MCHC 32.7 G/DL (30.0-36.0); MCV 85.4 FL (86-99); RBC DIS.WIDTH-CV 17.5 % (11.8-14.6); RBC DIS.WIDTH-SD 53.9 % (39-53); RED BLOOD COUNT 5.26 M/uL (4.00-5.50); WHITE BLOOD COUNT 11.7 K/uL (4.1-10.2)
[2017-08-15 04:11] LABS: PLATELET COUNT 263 K/uL (156-360)
[2017-08-15 04:18] LABS: ALBUMIN 3.8 g/dL (3.2-4.8); CHLORIDE 109 mEq/L (99-109); POTASSIUM 4.7 mEq/L (3.7-5.4); SODIUM 139 mEq/L (136-147)
[2017-08-15 04:20] LABS: GLUCOSE 83 mg/dL (70-99); TOTAL PROTEIN 7.7 g/dL (6.4-8.3)
[2017-08-15 04:22] LABS: TOTAL BILIRUBIN 0.5 mg/dL (0.0-1.0)
[2017-08-15 04:24] LABS: ALKALINE PHOSPHATASE 95 IU/L (3-129); CREATININE 6.3 mg/dL (0.6-1.3); GFR ESTIMATE (CALCULATED) 10 mL/min/ (58.99-99999)
[2017-08-15 04:25] LABS: AST (GOT) 18 IU/L (2-34); UREA NITROGEN (BUN) 29 mg/dL (9-23)
[2017-08-15 04:27] LABS: ALT (GPT) 9 IU/L (3-49)
[2017-08-15] MEDS ORDERED: PROMETHAZINE HC25 M1 PO (10:41)
[2017-08-15 10:49] LABS: PHOSPHORUS 4.2 mg/dL (2.5-4.9)
[2017-08-15 11:01] LABS: BASE EXCESS -5.3 mEq/L (-3 to +3); BICARBONATE 18.8 mEq/L (22-26); CARBOXY HGB 2.4 % (0-5); COMMENTS - BLOOD GASES A+C+; DEVICE ROOM AIR; METHEMOGLOBIN 1.1 % (0-1.5); PCO2 31 mm Hg (35-45); PO2 79 mm Hg (80-100); SITE RR; TOTAL RESP RATE 18 resp/min; pH 7.39 (7.35-7.45)
[2017-08-15 12:15] VITALS: BP 176/107
[2017-08-15 15:21] LABS: CHLORIDE 113 MEQ/L (99-109); SODIUM 139 MEQ/L (136-147)
[2017-08-15 15:27] LABS: CREATININE 5.4 MG/DL (0.6-1.3); GFR ESTIMATE (CALCULATED) 12 mL/min/ (58.99-99999); GLUCOSE 103 mg/dL (70-99); UREA NITROGEN (BUN) 27 mg/dL (9-23)
[2017-08-15 15:39] LABS: POTASSIUM 3.4 MEQ/L (3.7-5.4)
[2017-08-15 17:10] VITALS: BP 186/120
[2017-08-15 18:35] LABS: APPEARANCE CLEAR ((CLEAR)); BILIRUBIN NEGATIVE; BLOOD NEGATIVE; COLOR STRAW ((YELLOW)); GLUCOSE (STRIP) NEGATIVE; KETONES NEGATIVE; LEUKOCYTES NEGATIVE; NITRITE NEGATIVE; PROTEIN (STRIP) NEGATIVE; SPECIFIC GRAVITY 1.005 (1.000-1.030); UCUL ADDED? NO; UROBILINOGEN 0.2 MG/DL (0.2-1.0)
[2017-08-15 20:21] VITALS: BP 164/98
[2017-08-15 23:50] VITALS: BP 171/97
[2017-08-16 04:09] VITALS: BP 159/92
[2017-08-16 04:57] LABS: CHLORIDE 113 mEq/L (99-109); SODIUM 136 mEq/L (136-147)
[2017-08-16 04:58] LABS: MAGNESIUM 1.7 mg/dL (1.3-2.7)
[2017-08-16 04:59] LABS: GLUCOSE 101 mg/dL (70-99)
[2017-08-16 05:03] LABS: GFR ESTIMATE (CALCULATED) 13 mL/min/ (58.99-99999)
[2017-08-16 05:04] LABS: HEMATOCRIT 34.8 % (38.0-50.0); HEMOGLOBIN 11.8 G/DL (12.5-16.6); MCH 28.2 PG (29.0-34.0); MCHC 33.9 G/DL (30.0-36.0); MCV 83.1 FL (86-99); PLATELET COUNT 251 K/uL (156-360); RBC DIS.WIDTH-CV 17.2 % (11.8-14.6); RBC DIS.WIDTH-SD 52.2 % (39-53); RED BLOOD COUNT 4.19 M/uL (4.00-5.50); UREA NITROGEN (BUN) 25 mg/dL (9-23); WHITE BLOOD COUNT 11.7 K/uL (4.1-10.2)
[2017-08-16 05:17] LABS: POTASSIUM 4.1 mEq/L (3.7-5.4)
[2017-08-16 08:05] VITALS: BP 150/90
[2017-08-16 11:44] VITALS: BP 151/103
[2017-08-16 15:05] VITALS: BP 156/98
[2017-08-16 15:10] LABS: ALBUMIN 3.4 G/DL (3.2-4.8); CHLORIDE 111 MEQ/L (99-109); CREATININE 4.4 MG/DL (0.6-1.3); GFR ESTIMATE (CALCULATED) 15 mL/min/ (58.99-99999); GLUCOSE 100 mg/dL (70-99); POTASSIUM 3.5 MEQ/L (3.7-5.4); SODIUM 139 MEQ/L (136-147); UREA NITROGEN (BUN) 24 mg/dL (9-23)
[2017-08-16 15:20] LABS: PHOSPHORUS 4.4 mg/dL (2.5-4.9)
[2017-08-16 15:44] LABS: C DIFF TOXIN POSITIVE (NEGATIVE)
[2017-08-16 19:15] VITALS: BP 161/88
[2017-08-16 23:13] VITALS: BP 160/84
[2017-08-17 03:22] VITALS: BP 142/82
[2017-08-17 06:49] LABS: ALBUMIN 3.2 G/DL (3.2-4.8); CHLORIDE 112 MEQ/L (99-109); GLUCOSE 91 mg/dL (70-99); PHOSPHORUS 4.4 mg/dL (2.5-4.9); SODIUM 141 MEQ/L (136-147); UREA NITROGEN (BUN) 22 mg/dL (9-23)
[2017-08-17 06:51] LABS: CREATININE 3.5 MG/DL (0.6-1.3)
[2017-08-17 06:52] LABS: GFR ESTIMATE (CALCULATED) 20 mL/min/ (58.99-99999); POTASSIUM 4.6 MEQ/L (3.7-5.4)
[2017-08-17 08:36] VITALS: BP 150/68
[2017-08-17 11:28] VITALS: BP 135/97
[2017-08-17 16:27] VITALS: BP 178/80
[2017-08-17 19:28] VITALS: BP 162/92
[2017-08-17 23:29] VITALS: BP 163/103
[2017-08-18 03:38] VITALS: BP 158/99
[2017-08-18 04:57] LABS: BASOPHIL (%) 0.8 % (0-1); BASOPHIL COUNT 0.1 K/uL (0-0.1); EOSINOPHIL (%) 1.2 % (0-5); EOSINOPHIL COUNT 0.1 K/uL (0-0.3); HEMATOCRIT 33.2 % (38.0-50.0); HEMOGLOBIN 11.3 G/DL (12.5-16.6); IMMATURE GRANULOCYTE (%) 0.4 % (0.0-0.7); LYMPHOCYTE (%) 28.1 % (15-42); LYMPHOCYTE COUNT 2.8 K/uL (1.0-2.8); MCH 28.3 PG (29.0-34.0); MONOCYTE (%) 6.3 % (3-12); MONOCYTE COUNT 0.6 K/uL (0-0.8); NEUTROPHIL (%) 63.2 % (45-76); NEUTROPHIL COUNT 6.2 K/uL (1.8-6.4); PLATELET COUNT 270 K/uL (156-360); RBC DIS.WIDTH-CV 17.5 % (11.8-14.6); RBC DIS.WIDTH-SD 53.6 % (39-53); WHITE BLOOD COUNT 9.8 K/uL (4.1-10.2)
[2017-08-18 05:11] LABS: ALBUMIN 3.1 g/dL (3.2-4.8); CHLORIDE 110 mEq/L (99-109); SODIUM 142 mEq/L (136-147)
[2017-08-18 05:13] LABS: MAGNESIUM 1.2 mg/dL (1.3-2.7); POTASSIUM 3.5 mEq/L (3.7-5.4)
[2017-08-18 05:14] LABS: GLUCOSE 94 mg/dL (70-99)
[2017-08-18 05:17] LABS: GFR ESTIMATE (CALCULATED) 31 mL/min/ (58.99-99999); PHOSPHORUS 3.3 mg/dL (2.5-4.9)
[2017-08-18 05:18] LABS: UREA NITROGEN (BUN) 15 mg/dL (9-23)
[2017-08-18 05:20] LABS: CREATININE 2.4 mg/dL (0.6-1.3)
[2017-08-18 08:16] VITALS: BP 170/120
[2017-08-18 10:00] VITALS: BP 162/102
[2017-08-18 12:00] VITALS: BP 162/100
[2017-08-18 15:47] VITALS: BP 170/122
[2017-08-18 23:33] VITALS: BP 146/92
[2017-08-19 05:53] LABS: BASOPHIL (%) 0.6 % (0-1); BASOPHIL COUNT 0.1 K/uL (0-0.1); EOSINOPHIL (%) 0.1 % (0-5); HEMATOCRIT 35.6 % (38.0-50.0); HEMOGLOBIN 12.1 G/DL (12.5-16.6); IMMATURE GRANULOCYTE (%) 0.5 % (0.0-0.7); LYMPHOCYTE (%) 17.5 % (15-42); LYMPHOCYTE COUNT 1.8 K/uL (1.0-2.8); MCH 28.5 PG (29.0-34.0); MONOCYTE COUNT 0.5 K/uL (0-0.8); NEUTROPHIL (%) 76.3 % (45-76); NEUTROPHIL COUNT 7.7 K/uL (1.8-6.4); PLATELET COUNT 297 K/uL (156-360); RBC DIS.WIDTH-CV 17.9 % (11.8-14.6); RBC DIS.WIDTH-SD 54.6 % (39-53); RED BLOOD COUNT 4.24 M/uL (4.00-5.50); WHITE BLOOD COUNT 10.1 K/uL (4.1-10.2)
[2017-08-19 06:09] LABS: ALBUMIN 3.4 G/DL (3.2-4.8); CHLORIDE 106 MEQ/L (99-109); GLUCOSE 93 mg/dL (70-99); POTASSIUM 3.8 MEQ/L (3.7-5.4); SODIUM 139 MEQ/L (136-147); UREA NITROGEN (BUN) 10 mg/dL (9-23)
[2017-08-19 06:10] LABS: CREATININE 1.7 MG/DL (0.6-1.3); GFR ESTIMATE (CALCULATED) 46 mL/min/ (58.99-99999); MAGNESIUM 1.7 mg/dl (1.3-2.7); PHOSPHORUS 2.8 mg/dL (2.5-4.9)
[2017-08-19 07:40] VITALS: BP 146/62
[2017-08-19 11:17] VITALS: BP 172/70
[2017-08-19 15:02] VITALS: BP 178/102
[2017-08-19 16:13] VITALS: BP 162/100
[2017-08-19 20:07] VITALS: BP 130/74
[2017-08-20] VITALS (7 sets, daily range): BP systolic 110–176; BP diastolic 72–102
[2017-08-20 07:53] LABS: HEMATOCRIT 36.3 % (38.0-50.0); HEMOGLOBIN 11.9 G/DL (12.5-16.6); MCH 27.6 PG (29.0-34.0); MCHC 32.8 G/DL (30.0-36.0); MCV 84.2 FL (86-99); PLATELET COUNT 331 K/uL (156-360); RBC DIS.WIDTH-CV 18.1 % (11.8-14.6); RBC DIS.WIDTH-SD 55.2 % (39-53); RED BLOOD COUNT 4.31 M/uL (4.00-5.50); WHITE BLOOD COUNT 11.1 K/uL (4.1-10.2)
[2017-08-20 08:14] LABS: CHLORIDE 108 MEQ/L (99-109); CREATININE 1.4 MG/DL (0.6-1.3); GFR ESTIMATE (CALCULATED) 58 mL/min/ (58.99-99999); GLUCOSE 96 mg/dL (70-99); MAGNESIUM 1.6 mg/dl (1.3-2.7); POTASSIUM 3.7 MEQ/L (3.7-5.4); SODIUM 140 MEQ/L (136-147); UREA NITROGEN (BUN) 10 mg/dL (9-23)
[2017-08-20 14:59] LABS: APPEARANCE CLEAR ((CLEAR)); BILIRUBIN NEGATIVE; BLOOD NEGATIVE; COLOR YELLOW ((YELLOW)); GLUCOSE (STRIP) NEGATIVE; KETONES NEGATIVE; LEUKOCYTES NEGATIVE; NITRITE NEGATIVE; PROTEIN (STRIP) NEGATIVE; SPECIFIC GRAVITY 1.006 (1.000-1.030); UROBILINOGEN 0.2 MG/DL (0.2-1.0)
[2017-08-21 05:30] LABS: BASOPHIL COUNT 0.1 K/uL (0-0.1); EOSINOPHIL COUNT 0.6 K/uL (0-0.3); HEMATOCRIT 36.1 % (38.0-50.0); HEMOGLOBIN 11.8 G/DL (12.5-16.6); IMMATURE GRANULOCYTE (%) 0.3 % (0.0-0.7); LYMPHOCYTE (%) 35.9 % (15-42); LYMPHOCYTE COUNT 3.7 K/uL (1.0-2.8); MCH 27.8 PG (29.0-34.0); MCHC 32.7 G/DL (30.0-36.0); MCV 85.1 FL (86-99); MONOCYTE (%) 9.5 % (3-12); NEUTROPHIL (%) 47.3 % (45-76); NEUTROPHIL COUNT 4.9 K/uL (1.8-6.4); PLATELET COUNT 318 K/uL (156-360); RBC DIS.WIDTH-CV 18.6 % (11.8-14.6); RBC DIS.WIDTH-SD 57.5 % (39-53); RED BLOOD COUNT 4.24 M/uL (4.00-5.50); WHITE BLOOD COUNT 10.3 K/uL (4.1-10.2)
[2017-08-21 06:05] LABS: CHLORIDE 106 MEQ/L (99-109); CREATININE 1.4 MG/DL (0.6-1.3); GFR ESTIMATE (CALCULATED) 58 mL/min/ (58.99-99999); GLUCOSE 90 mg/dL (70-99); SODIUM 139 MEQ/L (136-147); UREA NITROGEN (BUN) 8 mg/dL (9-23)
[2017-08-21 08:06] VITALS: BP 158/96
[2017-08-21 08:14] LABS: MAGNESIUM 1.6 mg/dl (1.3-2.7)
[2017-08-21 11:13] VITALS: BP 130/86
[2017-08-21 15:36] VITALS: BP 143/92
[2017-08-21 23:59] VITALS: BP 127/88
[2017-08-22 05:59] LABS: CHLORIDE 105 MEQ/L (99-109); CREATININE 1.2 MG/DL (0.6-1.3); GFR ESTIMATE (CALCULATED) > 59 mL/min/ (58.99-99999); GLUCOSE 86 mg/dL (70-99); POTASSIUM 3.2 MEQ/L (3.7-5.4); SODIUM 138 MEQ/L (136-147); UREA NITROGEN (BUN) 10 mg/dL (9-23)
[2017-08-22 07:14] LABS: HEMATOCRIT 37.2 % (38.0-50.0); HEMOGLOBIN 12.1 G/DL (12.5-16.6); MCH 27.7 PG (29.0-34.0); MCHC 32.5 G/DL (30.0-36.0); MCV 85.1 FL (86-99); PLATELET COUNT 361 K/uL (156-360); RBC DIS.WIDTH-CV 18.3 % (11.8-14.6); RBC DIS.WIDTH-SD 57.1 % (39-53); RED BLOOD COUNT 4.37 M/uL (4.00-5.50); WHITE BLOOD COUNT 11.7 K/uL (4.1-10.2)
[2017-08-22 08:20] VITALS: BP 142/96
[2017-08-22 11:01] VITALS: BP 140/86
[2017-08-22 17:52] VITALS: BP 150/70
[2017-08-22 17:59] VITALS: BP 150/100
[2017-08-22 20:36] VITALS: BP 133/83
[2017-08-22 23:51] VITALS: BP 133/73
[2017-08-23 04:00] VITALS: BP 124/70
[2017-08-23 07:55] VITALS: BP 148/98
[2017-08-23 11:05] VITALS: BP 126/78
[2017-08-23 15:21] VITALS: BP 142/88
== END 2017-08-23 19:00 | disposition home or self-care (01) | DRG 372 ==
LOC: EME 03:38 → EDOF 09:57 → 3EAST 09:57 → ENRESERV 09:59 → EDOF 10:04 → ENRESERV 10:24 → 3EAST 12:01
PROVIDERS: Emergency Medicine; Internal Medicine; Internal Medicine Nephrology; Physician Assistant
DX: A04.71 Enterocolitis due to Clostridium difficile, recurrent (principal); N17.9 Acute kidney failure, unspecified; E86.0 Dehydration; E87.2 Acidosis; E87.6 Hypokalemia; K50.911 Crohn's disease, unspecified, with rectal bleeding; F31.9 Bipolar disorder, unspecified; F41.9 Anxiety disorder, unspecified; I10 Essential (primary) hypertension; K21.9 Gastro-esophageal reflux disease without esophagitis; M06.9 Rheumatoid arthritis, unspecified; G43.909 Migraine, unspecified, not intractable, without status migrainosus; F17.200 Nicotine dependence, unspecified, uncomplicated; F12.90 Cannabis use, unspecified, uncomplicated; Z86.010 Personal history of colon polyps; Z87.11 Personal history of peptic ulcer disease; Z91.5 Personal history of self-harm; Z88.5 Allergy status to narcotic agent; Z88.6 Allergy status to analgesic agent
CPT/HCPCS: 36600; 74176; 76770; 80048; 80048 91; 80053; 80069; 81003; 82550; 82570; 82803; 83735; 83935; 84100; 84300; 84550; 85025; 85027; 87086; 87493; 99281; 99285; J0360; J1170; J2405; J2550; J3010; J3475; J3480; J7030; J7120; Q0177; S0030

== ENCOUNTER 2017-09-03 10:47 | Observation (INO) | payer OTHER ==
[~2017-09-03] VITALS: Ht 180.3 cm; Wt 81.9 kg
[2017-09-03 11:42] LABS: HEMATOCRIT 38.9 % (38.0-50.0); HEMOGLOBIN 13.1 G/DL (12.5-16.6); MCH 28.8 PG (29.0-34.0); MCHC 33.7 G/DL (30.0-36.0); MCV 85.5 FL (86-99); PLATELET COUNT 280 K/uL (156-360); RBC DIS.WIDTH-CV 17.2 % (11.8-14.6); RBC DIS.WIDTH-SD 54.5 % (39-53); RED BLOOD COUNT 4.55 M/uL (4.00-5.50); WHITE BLOOD COUNT 10.8 K/uL (4.1-10.2)
[2017-09-03 11:54] LABS: ALBUMIN 4.3 g/dL (3.2-4.8); CHLORIDE 112 mEq/L (99-109); POTASSIUM 3.7 mEq/L (3.7-5.4); SODIUM 137 mEq/L (136-147)
[2017-09-03 11:57] LABS: GLUCOSE 116 mg/dL (70-99); TOTAL PROTEIN 7.5 g/dL (6.4-8.3)
[2017-09-03 11:58] LABS: TOTAL BILIRUBIN 0.4 mg/dL (0.0-1.0)
[2017-09-03 12:00] LABS: ALKALINE PHOSPHATASE 81 IU/L (3-129); CREATININE 3.3 mg/dL (0.6-1.3); GFR ESTIMATE (CALCULATED) 22 mL/min/ (58.99-99999)
[2017-09-03 12:01] LABS: UREA NITROGEN (BUN) 38 mg/dL (9-23)
[2017-09-03 12:02] LABS: AST (GOT) 13 IU/L (2-34)
[2017-09-03 12:03] LABS: ALT (GPT) 7 IU/L (3-49)
[2017-09-03 12:04] LABS: LIPASE 31 U/L (1.0-51.0)
[2017-09-03 14:24] LABS: APPEARANCE CLEAR ((CLEAR)); BILIRUBIN NEGATIVE; BLOOD NEGATIVE; COLOR YELLOW ((YELLOW)); GLUCOSE (STRIP) NEGATIVE; KETONES NEGATIVE; LEUKOCYTES NEGATIVE; NITRITE NEGATIVE; PROTEIN (STRIP) NEGATIVE; SPECIFIC GRAVITY 1.012 (1.000-1.030); UCUL ADDED? NO; UROBILINOGEN 0.2 MG/DL (0.2-1.0)
[2017-09-03 16:23] LABS: CHLORIDE 114 mEq/L (99-109); SODIUM 141 mEq/L (136-147)
[2017-09-03 16:29] LABS: GFR ESTIMATE (CALCULATED) 24 mL/min/ (58.99-99999)
[2017-09-03 16:30] LABS: UREA NITROGEN (BUN) 38 mg/dL (9-23)
[2017-09-03 16:46] LABS: GLUCOSE 84 mg/dL (70-99)
[2017-09-03] MEDS ORDERED: OMEPRAZOLE40 M1 PO (18:11)
[2017-09-03] MEDS ORDERED: VANCOMYCIN125 MG/2.5 PO ×3 (18:20→18:21)
[2017-09-03 21:12] VITALS: BP 131/85
[2017-09-04 06:34] LABS: BASOPHIL (%) 1.2 % (0-1); BASOPHIL COUNT 0.1 K/uL (0-0.1); EOSINOPHIL COUNT 0.5 K/uL (0-0.3); HEMATOCRIT 37.6 % (38.0-50.0); HEMOGLOBIN 12.1 G/DL (12.5-16.6); IMMATURE GRANULOCYTE (%) 0.3 % (0.0-0.7); LYMPHOCYTE (%) 44.5 % (15-42); LYMPHOCYTE COUNT 3.3 K/uL (1.0-2.8); MCH 28.1 PG (29.0-34.0); MCHC 32.2 G/DL (30.0-36.0); MCV 87.2 FL (86-99); MONOCYTE (%) 9.2 % (3-12); MONOCYTE COUNT 0.7 K/uL (0-0.8); NEUTROPHIL (%) 37.8 % (45-76); NEUTROPHIL COUNT 2.8 K/uL (1.8-6.4); RBC DIS.WIDTH-CV 17.2 % (11.8-14.6); RBC DIS.WIDTH-SD 55.8 % (39-53); RED BLOOD COUNT 4.31 M/uL (4.00-5.50); WHITE BLOOD COUNT 7.4 K/uL (4.1-10.2)
[2017-09-04 06:59] LABS: CHLORIDE 115 MEQ/L (99-109); CREATININE 2.8 MG/DL (0.6-1.3); GFR ESTIMATE (CALCULATED) 26 mL/min/ (58.99-99999); GLUCOSE 76 mg/dL (70-99); POTASSIUM 4.2 MEQ/L (3.7-5.4); SODIUM 140 MEQ/L (136-147); UREA NITROGEN (BUN) 32 mg/dL (9-23)
[2017-09-04 07:18] LABS: HEMATOLOGY COMMENT 1 SMEAR COMPATIBLE; PLAT.SUFFICIENCY ADEQUATE
[2017-09-04 07:20] LABS: PLATELET COUNT 192 K/uL (156-360)
[2017-09-04 09:18] VITALS: BP 166/102
[2017-09-04 10:52] LABS: C DIFF TOXIN POSITIVE (NEGATIVE)
[2017-09-04 13:18] LABS: CHLORIDE 117 MEQ/L (99-109); CREATININE 2.5 MG/DL (0.6-1.3); GFR ESTIMATE (CALCULATED) 30 mL/min/ (58.99-99999); GLUCOSE 89 mg/dL (70-99); SODIUM 139 MEQ/L (136-147); UREA NITROGEN (BUN) 28 mg/dL (9-23)
[2017-09-04 17:27] VITALS: BP 153/101
[2017-09-05 00:45] VITALS: BP 162/94
[2017-09-05 03:43] VITALS: BP 158/94
[2017-09-05 09:32] LABS: HEMATOCRIT 33.9 % (38.0-50.0); MCH 28.4 PG (29.0-34.0); MCHC 32.4 G/DL (30.0-36.0); MCV 87.4 FL (86-99); PLATELET COUNT 227 K/uL (156-360); RBC DIS.WIDTH-CV 16.4 % (11.8-14.6); RBC DIS.WIDTH-SD 52.6 % (39-53); RED BLOOD COUNT 3.88 M/uL (4.00-5.50); WHITE BLOOD COUNT 7.3 K/uL (4.1-10.2)
[2017-09-05 09:58] LABS: CHLORIDE 116 MEQ/L (99-109); CREATININE 2.2 MG/DL (0.6-1.3); GFR ESTIMATE (CALCULATED) 34 mL/min/ (58.99-99999); GLUCOSE 83 mg/dL (70-99); POTASSIUM 4.1 MEQ/L (3.7-5.4); SODIUM 143 MEQ/L (136-147); UREA NITROGEN (BUN) 18 mg/dL (9-23)
[2017-09-05 09:59] VITALS: BP 175/112
[2017-09-05] MEDS ORDERED: ONDANSETRON ODT4 MG PO (13:02)
[2017-09-05] MEDS ORDERED: PERCOCET 5/31 TABLET PO (13:02)
== END 2017-09-05 16:02 | disposition home or self-care (01) ==
LOC: EME 10:47 → EDOF 17:54 → ENRESERV 17:56 → 5WEST 21:10
PROVIDERS: Hospitalist; Nurse Practitioner Family
DX: N17.9 Acute kidney failure, unspecified (principal); E87.2 Acidosis; E86.0 Dehydration; R11.2 Nausea with vomiting, unspecified; R10.84 Generalized abdominal pain; A04.71 Enterocolitis due to Clostridium difficile, recurrent; K50.90 Crohn's disease, unspecified, without complications; I10 Essential (primary) hypertension; M06.9 Rheumatoid arthritis, unspecified; Z87.11 Personal history of peptic ulcer disease; Z91.5 Personal history of self-harm; Z86.010 Personal history of colon polyps; Z87.442 Personal history of urinary calculi; F32.9 Major depressive disorder, single episode, unspecified; F41.9 Anxiety disorder, unspecified; Z90.49 Acquired absence of other specified parts of digestive tract; F17.210 Nicotine dependence, cigarettes, uncomplicated; F12.90 Cannabis use, unspecified, uncomplicated; F10.21 Alcohol dependence, in remission; Z88.5 Allergy status to narcotic agent; Z88.6 Allergy status to analgesic agent; Z80.3 Family history of malignant neoplasm of breast; Z80.8 Family history of malignant neoplasm of other organs or systems; Z82.5 Family history of asthma and other chronic lower respiratory diseases
CPT/HCPCS: 74176; 80048; 80048 91; 80053; 81003; 83690; 85025; 85027; 87493; G0378; J1170; J1644; J2405; J2550; J3010; J7030; S0028

== ENCOUNTER 2017-09-13 11:50 | Emergency (ER) | payer OTHER ==
[~2017-09-13] VITALS: Ht 180.3 cm; Wt 81.5 kg
[2017-09-13 12:50] LABS: HEMATOCRIT 40.6 % (38.0-50.0); HEMOGLOBIN 13.5 G/DL (12.5-16.6); MCH 29.2 PG (29.0-34.0); MCHC 33.3 G/DL (30.0-36.0); MCV 87.9 FL (86-99); PLATELET COUNT 298 K/uL (156-360); RBC DIS.WIDTH-CV 17.1 % (11.8-14.6); RBC DIS.WIDTH-SD 55.1 % (39-53); RED BLOOD COUNT 4.62 M/uL (4.00-5.50); WHITE BLOOD COUNT 10.3 K/uL (4.1-10.2)
[2017-09-13 12:57] LABS: ALBUMIN 4.4 g/dL (3.2-4.8); CHLORIDE 113 mEq/L (99-109); SODIUM 141 mEq/L (136-147)
[2017-09-13 12:59] LABS: GLUCOSE 84 mg/dL (70-99); TOTAL PROTEIN 7.7 g/dL (6.4-8.3)
[2017-09-13 13:00] LABS: POTASSIUM 3.5 mEq/L (3.7-5.4)
[2017-09-13 13:01] LABS: TOTAL BILIRUBIN 0.3 mg/dL (0.0-1.0)
[2017-09-13 13:02] LABS: ALKALINE PHOSPHATASE 88 IU/L (3-129)
[2017-09-13 13:03] LABS: CREATININE 1.3 mg/dL (0.6-1.3); GFR ESTIMATE (CALCULATED) > 59 mL/min/ (58.99-99999)
[2017-09-13 13:04] LABS: AST (GOT) 16 IU/L (2-34); UREA NITROGEN (BUN) 13 mg/dL (9-23)
[2017-09-13 13:06] LABS: ALT (GPT) 8 IU/L (3-49)
[2017-09-13 17:26] LABS: APPEARANCE CLEAR ((CLEAR)); BILIRUBIN NEGATIVE; BLOOD NEGATIVE; COLOR YELLOW ((YELLOW)); GLUCOSE (STRIP) NEGATIVE; KETONES NEGATIVE; LEUKOCYTES NEGATIVE; NITRITE NEGATIVE; PROTEIN (STRIP) NEGATIVE; SPECIFIC GRAVITY 1.018 (1.000-1.030); UCUL ADDED? NO; UROBILINOGEN 0.2 MG/DL (0.2-1.0)
[2017-09-13] MEDS ORDERED: ZANAFLEX4 MG PO (17:36)
[2017-09-13] MEDS ORDERED: ZOFRAN ODT4 MG PO (17:38)
[2017-09-13 18:18] VITALS: BP 160/113
== END 2017-09-13 17:50 | disposition home or self-care (01) ==
LOC: EME 11:50
DX: K50.90 Crohn's disease, unspecified, without complications (principal); M54.5 Low back pain; I10 Essential (primary) hypertension; E05.90 Thyrotoxicosis, unspecified without thyrotoxic crisis or storm; M06.9 Rheumatoid arthritis, unspecified; K21.9 Gastro-esophageal reflux disease without esophagitis; F41.9 Anxiety disorder, unspecified; F32.9 Major depressive disorder, single episode, unspecified; Z87.891 Personal history of nicotine dependence; Z87.442 Personal history of urinary calculi; Z88.5 Allergy status to narcotic agent; Z88.6 Allergy status to analgesic agent
CPT/HCPCS: 74176; 80053; 81003; 85027; 87493; 99281; 99284; J2405; J7030

== ENCOUNTER 2017-09-24 22:35 | Inpatient (IN) | payer OTHER ==
[~2017-09-24] VITALS: Ht 180.3 cm; Wt 83.3 kg
[~2017-09-24 22:35] MED LIST changes: +ZANAFLEX4 MG PO
[2017-09-24 23:25] LABS: HEMATOCRIT 41.2 % (38.0-50.0); HEMOGLOBIN 14.1 G/DL (12.5-16.6); MCH 29.7 PG (29.0-34.0); MCHC 34.2 G/DL (30.0-36.0); MCV 86.9 FL (86-99); PLATELET COUNT 284 K/uL (156-360); RBC DIS.WIDTH-CV 16.7 % (11.8-14.6); RBC DIS.WIDTH-SD 53.3 % (39-53); RED BLOOD COUNT 4.74 M/uL (4.00-5.50); WHITE BLOOD COUNT 11.6 K/uL (4.1-10.2)
[2017-09-24 23:34] LABS: ALBUMIN 4.1 g/dL (3.2-4.8); CHLORIDE 108 mEq/L (99-109); POTASSIUM 3.3 mEq/L (3.7-5.4); SODIUM 143 mEq/L (136-147)
[2017-09-24 23:37] LABS: GLUCOSE 82 mg/dL (70-99); TOTAL PROTEIN 7.5 g/dL (6.4-8.3)
[2017-09-24 23:38] LABS: TOTAL BILIRUBIN 0.3 mg/dL (0.0-1.0)
[2017-09-24 23:40] LABS: ALKALINE PHOSPHATASE 88 IU/L (3-129); CREATININE 0.8 mg/dL (0.6-1.3); GFR ESTIMATE (CALCULATED) > 59 mL/min/ (58.99-99999)
[2017-09-24 23:41] LABS: UREA NITROGEN (BUN) 16 mg/dL (9-23)
[2017-09-24 23:42] LABS: AST (GOT) 16 IU/L (2-34)
[2017-09-24 23:43] LABS: ALT (GPT) 8 IU/L (3-49)
[2017-09-25 01:40] LABS: APPEARANCE SL.HAZY ((CLEAR)); BILIRUBIN NEGATIVE; BLOOD LARGE; COLOR YELLOW ((YELLOW)); GLUCOSE (STRIP) NEGATIVE; KETONES NEGATIVE; LEUKOCYTES NEGATIVE; NITRITE NEGATIVE; PROTEIN (STRIP) 30; SPECIFIC GRAVITY 1.021 (1.000-1.030); UROBILINOGEN 0.2 MG/DL (0.2-1.0)
[2017-09-25 01:58] LABS: BACTERIA RARE /HPF; EPITHELIAL CELLS RARE /HPF; MUCUS RARE /LPF; RED BLOOD CELLS TNTC /HPF (0-5); UCUL ADDED? YES; WHITE BLOOD CELLS 0-5 /HPF (0-5)
[2017-09-25] MEDS ORDERED: BENTYL10 MG PO (11:10)
[2017-09-25] MEDS ORDERED: COZAAR25 MG PO (11:11)
[2017-09-25] MEDS ORDERED: PEPCID20 MG PO (11:15)
[2017-09-25] MEDS ORDERED: CYCLOBENZAPRINE10 MG PO (11:17)
[2017-09-25] MEDS ORDERED: MELOXICAM15 MG PO (11:17)
[2017-09-25 15:14] LABS: C DIFF TOXIN POSITIVE (NEGATIVE)
[2017-09-25 16:41] VITALS: BP 150/90
[2017-09-25 19:36] VITALS: BP 160/100
[2017-09-25 23:55] VITALS: BP 152/98
[2017-09-26 06:07] LABS: ALBUMIN 3.4 g/dL (3.2-4.8); CHLORIDE 112 mEq/L (99-109); POTASSIUM 3.5 mEq/L (3.7-5.4); SODIUM 141 mEq/L (136-147)
[2017-09-26 06:08] LABS: MAGNESIUM 1.9 mg/dL (1.3-2.7)
[2017-09-26 06:11] LABS: TOTAL BILIRUBIN 0.3 mg/dL (0.0-1.0)
[2017-09-26 06:13] LABS: ALKALINE PHOSPHATASE 81 IU/L (3-129); CREATININE 0.8 mg/dL (0.6-1.3); GFR ESTIMATE (CALCULATED) > 59 mL/min/ (58.99-99999); GLUCOSE 104 mg/dL (70-99)
[2017-09-26 06:14] LABS: UREA NITROGEN (BUN) 12 mg/dL (9-23)
[2017-09-26 06:15] LABS: AST (GOT) 17 IU/L (2-34)
[2017-09-26 06:16] LABS: ALT (GPT) 8 IU/L (3-49)
[2017-09-26 07:59] LABS: BASOPHIL (%) 0.7 % (0-1); BASOPHIL COUNT 0.1 K/uL (0-0.1); EOSINOPHIL (%) 6.9 % (0-5); EOSINOPHIL COUNT 0.5 K/uL (0-0.3); IMMATURE GRANULOCYTE (%) 0.1 % (0.0-0.7); LYMPHOCYTE (%) 41.2 % (15-42); LYMPHOCYTE COUNT 2.9 K/uL (1.0-2.8); MCH 29.1 PG (29.0-34.0); MCHC 33.6 G/DL (30.0-36.0); MCV 86.4 FL (86-99); MONOCYTE (%) 7.3 % (3-12); MONOCYTE COUNT 0.5 K/uL (0-0.8); NEUTROPHIL (%) 43.8 % (45-76); NEUTROPHIL COUNT 3.1 K/uL (1.8-6.4); PLATELET COUNT 228 K/uL (156-360); RBC DIS.WIDTH-CV 16.3 % (11.8-14.6); RBC DIS.WIDTH-SD 51.7 % (39-53); RED BLOOD COUNT 3.82 M/uL (4.00-5.50)
[2017-09-26 08:00] LABS: HEMOGLOBIN 11.1 G/DL (12.5-16.6)
[2017-09-26 08:04] VITALS: BP 146/72
[2017-09-26 14:05] LABS: STOOL OCCULT BLD 1ST SPECIMEN NEGATIVE
[2017-09-26 16:25] VITALS: BP 138/70
[2017-09-26 23:18] VITALS: BP 170/90
[2017-09-27 05:49] LABS: HEMOGLOBIN 11.2 G/DL (12.5-16.6); MCH 28.6 PG (29.0-34.0); MCHC 32.9 G/DL (30.0-36.0); PLATELET COUNT 232 K/uL (156-360); RBC DIS.WIDTH-CV 16.4 % (11.8-14.6); RBC DIS.WIDTH-SD 52.6 % (39-53); RED BLOOD COUNT 3.91 M/uL (4.00-5.50); WHITE BLOOD COUNT 7.2 K/uL (4.1-10.2)
[2017-09-27 06:11] LABS: CHLORIDE 113 MEQ/L (99-109); MAGNESIUM 1.7 mg/dl (1.3-2.7); POTASSIUM 3.7 MEQ/L (3.7-5.4); SODIUM 138 MEQ/L (136-147)
[2017-09-27 06:17] LABS: GFR ESTIMATE (CALCULATED) > 59 mL/min/ (58.99-99999); GLUCOSE 115 mg/dL (70-99); UREA NITROGEN (BUN) 10 mg/dL (9-23)
[2017-09-27 08:02] VITALS: BP 168/87
[2017-09-27 16:02] VITALS: BP 139/97
[2017-09-28 00:54] VITALS: BP 150/90
[2017-09-28 08:16] VITALS: BP 148/78
[2017-09-28 16:04] VITALS: BP 169/92
[2017-09-28 23:39] VITALS: BP 140/68
[2017-09-29 08:14] VITALS: BP 148/102
[2017-09-29] MEDS ORDERED: PEPCID20 MG PO (12:14)
[2017-09-29] MEDS ORDERED: FLORASTOR250 MG PO (12:14)
[2017-09-29] MEDS ORDERED: PERCOCET 2.51 TABLET PO (12:17)
[2017-09-29 12:22] VITALS: BP 140/90
[2017-09-29] MEDS ORDERED: ASACOL HD800 MG PO (12:26)
[2017-09-29] MEDS ORDERED: VANCOMYCIN125 MG/2.5 PO (12:26)
[2017-09-29] MEDS ORDERED: ONDANSETRON ODT4 MG PO (12:28)
[2017-09-29] MEDS ORDERED: PERCOCET 5/31 TABLET PO (14:24)
== END 2017-09-29 16:06 | disposition home or self-care (01) | DRG 372 ==
LOC: EME 22:35 → 3EAST 09-25 05:17 → EDOF 09-25 05:17 → ENRESERV 09-25 05:21 → CANRESERV 09-25 06:26 → ENRESERV 09-25 07:17 → 3EAST 09-25 15:43
PROVIDERS: Internal Medicine
DX: A04.71 Enterocolitis due to Clostridium difficile, recurrent (principal); K50.10 Crohn's disease of large intestine without complications; E87.6 Hypokalemia; D64.9 Anemia, unspecified; M06.9 Rheumatoid arthritis, unspecified; K56.0 Paralytic ileus; K21.9 Gastro-esophageal reflux disease without esophagitis; K29.70 Gastritis, unspecified, without bleeding; I10 Essential (primary) hypertension; N20.0 Calculus of kidney; F32.9 Major depressive disorder, single episode, unspecified; F41.9 Anxiety disorder, unspecified; F17.210 Nicotine dependence, cigarettes, uncomplicated; F12.90 Cannabis use, unspecified, uncomplicated; Z86.010 Personal history of colon polyps; Z90.49 Acquired absence of other specified parts of digestive tract
CPT/HCPCS: 74177; 80048; 80053; 81003; 82272; 83735; 85025; 85027; 87086; 87177; 87329; 87493; 87506; 99281; 99285; J1170; J1650; J2270; J2405; J7030; Q0169; S0028; S0030

== ENCOUNTER 2017-10-05 22:15 | Emergency (ER) | payer OTHER ==
[~2017-10-05] VITALS: Ht 180.3 cm; Wt 82.4 kg
[~2017-10-05 22:15] MED LIST changes: +ASACOL HD800 MG PO; +COZAAR25 MG PO; +CYCLOBENZAPRINE10 MG PO; +MELOXICAM15 MG PO; +PEPCID20 MG PO; +PERCOCET 2.51 TABLET PO
[2017-10-05 22:35] LABS: HEMATOCRIT 39.1 % (38.0-50.0); HEMOGLOBIN 13.5 G/DL (12.5-16.6); MCH 29.8 PG (29.0-34.0); MCHC 34.5 G/DL (30.0-36.0); MCV 86.3 FL (86-99); PLATELET COUNT 357 K/uL (156-360); RBC DIS.WIDTH-CV 17.2 % (11.8-14.6); RBC DIS.WIDTH-SD 54.6 % (39-53); RED BLOOD COUNT 4.53 M/uL (4.00-5.50); WHITE BLOOD COUNT 11.8 K/uL (4.1-10.2)
[2017-10-05 22:42] LABS: ALBUMIN 3.9 g/dL (3.2-4.8)
[2017-10-05 22:43] LABS: CHLORIDE 112 mEq/L (99-109); POTASSIUM 3.2 mEq/L (3.7-5.4); SODIUM 144 mEq/L (136-147)
[2017-10-05 22:45] LABS: GLUCOSE 134 mg/dL (70-99); TOTAL PROTEIN 7.3 g/dL (6.4-8.3)
[2017-10-05 22:47] LABS: TOTAL BILIRUBIN 0.3 mg/dL (0.0-1.0)
[2017-10-05 22:48] LABS: ALKALINE PHOSPHATASE 124 IU/L (3-129)
[2017-10-05 22:49] LABS: CREATININE 0.8 mg/dL (0.6-1.3); GFR ESTIMATE (CALCULATED) > 59 mL/min/ (58.99-99999)
[2017-10-05 22:50] LABS: AST (GOT) 22 IU/L (2-34); UREA NITROGEN (BUN) 12 mg/dL (9-23)
[2017-10-05 22:52] LABS: ALT (GPT) 20 IU/L (3-49); LIPASE 47 U/L (1.0-51.0)
[2017-10-06 02:22] LABS: APPEARANCE CLEAR ((CLEAR)); BILIRUBIN NEGATIVE; BLOOD NEGATIVE; COLOR YELLOW ((YELLOW)); GLUCOSE (STRIP) NEGATIVE; KETONES NEGATIVE; LEUKOCYTES NEGATIVE; NITRITE NEGATIVE; PROTEIN (STRIP) NEGATIVE; UCUL ADDED? NO; UROBILINOGEN 0.2 MG/DL (0.2-1.0)
[2017-10-06] MEDS ORDERED: BENTYL20 MG PO (02:23)
[2017-10-06] MEDS ORDERED: ZOFRAN ODT8 MG PO (02:23)
[2017-10-06 02:29] LABS: SPECIFIC GRAVITY 1.071 (1.000-1.030)
[2017-10-06 04:11] VITALS: BP 176/115
== END 2017-10-06 04:06 | disposition home or self-care (01) ==
LOC: EME 22:15
DX: R10.30 Lower abdominal pain, unspecified (principal); K50.90 Crohn's disease, unspecified, without complications; I10 Essential (primary) hypertension; Z86.19 Personal history of other infectious and parasitic diseases; N20.0 Calculus of kidney; E87.6 Hypokalemia; E86.0 Dehydration; K58.0 Irritable bowel syndrome with diarrhea; M06.9 Rheumatoid arthritis, unspecified; K21.9 Gastro-esophageal reflux disease without esophagitis; F41.9 Anxiety disorder, unspecified; F32.9 Major depressive disorder, single episode, unspecified; F17.200 Nicotine dependence, unspecified, uncomplicated; Z87.442 Personal history of urinary calculi; Z90.49 Acquired absence of other specified parts of digestive tract; Z88.5 Allergy status to narcotic agent; Z88.6 Allergy status to analgesic agent
CPT/HCPCS: 74177; 80053; 81003; 83605; 83690; 85027; 99281; 99285; J1885; J2405; J3010; J3480; J7030; J7050; S0030

== ENCOUNTER 2017-10-13 21:37 | Inpatient (IN) | payer OTHER ==
[~2017-10-13] VITALS: Ht 180.3 cm; Wt 86.9 kg
[~2017-10-13 21:37] MED LIST changes: +BENTYL20 MG PO; +COZAAR100 MG PO; -COZAAR25 MG PO; +ZOFRAN ODT8 MG PO
[2017-10-13 23:13] LABS: HEMATOCRIT 40.5 % (38.0-50.0); HEMOGLOBIN 13.7 G/DL (12.5-16.6); MCH 29.5 PG (29.0-34.0); MCHC 33.8 G/DL (30.0-36.0); MCV 87.1 FL (86-99); PLATELET COUNT 317 K/uL (156-360); RBC DIS.WIDTH-CV 16.8 % (11.8-14.6); RBC DIS.WIDTH-SD 53.7 % (39-53); RED BLOOD COUNT 4.65 M/uL (4.00-5.50); WHITE BLOOD COUNT 14.8 K/uL (4.1-10.2)
[2017-10-13 23:25] LABS: ALBUMIN 4.1 g/dL (3.2-4.8)
[2017-10-13 23:26] LABS: CHLORIDE 112 mEq/L (99-109); POTASSIUM 3.5 mEq/L (3.7-5.4); SODIUM 142 mEq/L (136-147)
[2017-10-13 23:28] LABS: GLUCOSE 85 mg/dL (70-99); TOTAL PROTEIN 7.4 g/dL (6.4-8.3)
[2017-10-13 23:30] LABS: TOTAL BILIRUBIN 0.3 mg/dL (0.0-1.0)
[2017-10-13 23:31] LABS: ALKALINE PHOSPHATASE 93 IU/L (3-129)
[2017-10-13 23:32] LABS: CREATININE 0.9 mg/dL (0.6-1.3); GFR ESTIMATE (CALCULATED) > 59 mL/min/ (58.99-99999)
[2017-10-13 23:33] LABS: AST (GOT) 12 IU/L (2-34); UREA NITROGEN (BUN) 22 mg/dL (9-23)
[2017-10-13 23:35] LABS: ALT (GPT) 9 IU/L (3-49)
[2017-10-14 02:13] LABS: APPEARANCE CLEAR ((CLEAR)); BILIRUBIN NEGATIVE; BLOOD MODERATE; COLOR YELLOW ((YELLOW)); GLUCOSE (STRIP) NEGATIVE; KETONES NEGATIVE; LEUKOCYTES NEGATIVE; NITRITE NEGATIVE; PROTEIN (STRIP) NEGATIVE; SPECIFIC GRAVITY 1.027 (1.000-1.030); UROBILINOGEN 0.2 MG/DL (0.2-1.0)
[2017-10-14 02:25] LABS: BACTERIA NONE SEEN /HPF; EPITHELIAL CELLS RARE /HPF; HYALINE CASTS 0-5 /LPF; MUCUS TRACE /LPF; RED BLOOD CELLS TNTC /HPF (0-5); UCUL ADDED? YES; WHITE BLOOD CELLS 0-5 /HPF (0-5)
[2017-10-14 05:44] VITALS: BP 157/102
[2017-10-14 08:00] VITALS: BP 158/105
[2017-10-14 09:53] LABS: CHLORIDE 114 MEQ/L (99-109); CREATININE 0.7 MG/DL (0.6-1.3); GFR ESTIMATE (CALCULATED) > 59 mL/min/ (58.99-99999); GLUCOSE 104 mg/dL (70-99); MAGNESIUM 1.9 mg/dl (1.3-2.7); POTASSIUM 3.5 MEQ/L (3.7-5.4); SODIUM 143 MEQ/L (136-147); UREA NITROGEN (BUN) 16 mg/dL (9-23)
[2017-10-14] MEDS ORDERED: BENTYL20 MG PO (13:48)
[2017-10-14] MEDS ORDERED: AMLODIPINE BESYL5 MG PO (14:01)
[2017-10-14 15:28] LABS: C DIFF TOXIN POSITIVE (NEGATIVE)
[2017-10-14 17:22] VITALS: BP 160/98
[2017-10-14 23:23] VITALS: BP 158/99
[2017-10-15 07:11] LABS: CHLORIDE 108 MEQ/L (99-109); CREATININE 0.7 MG/DL (0.6-1.3); GFR ESTIMATE (CALCULATED) > 59 mL/min/ (58.99-99999); GLUCOSE 80 mg/dL (70-99); POTASSIUM 3.7 MEQ/L (3.7-5.4); SODIUM 137 MEQ/L (136-147); UREA NITROGEN (BUN) 8 mg/dL (9-23)
[2017-10-15 07:38] LABS: HEMATOCRIT 36.9 % (38.0-50.0); HEMOGLOBIN 12.4 G/DL (12.5-16.6); MCH 29.5 PG (29.0-34.0); MCHC 33.6 G/DL (30.0-36.0); MCV 87.9 FL (86-99); PLATELET COUNT 269 K/uL (156-360); RBC DIS.WIDTH-CV 16.4 % (11.8-14.6); RBC DIS.WIDTH-SD 52.7 % (39-53); WHITE BLOOD COUNT 8.9 K/uL (4.1-10.2)
[2017-10-15 08:05] VITALS: BP 141/85
[2017-10-15 08:12] LABS: ANISOCYTOSIS 1+; BASOPHIL COUNT 0.1 K/uL (0-0.1); EOSINOPHIL (%) 9.6 % (0-5); EOSINOPHIL COUNT 0.9 K/uL (0-0.3); IMMATURE GRANULOCYTE (%) 0.3 % (0.0-0.7); LYMPHOCYTE (%) 39.3 % (15-42); LYMPHOCYTE COUNT 3.5 K/uL (1.0-2.8); MONOCYTE (%) 8.9 % (3-12); MONOCYTE COUNT 0.8 K/uL (0-0.8); NEUTROPHIL (%) 40.9 % (45-76); NEUTROPHIL COUNT 3.6 K/uL (1.8-6.4)
[2017-10-15 16:19] VITALS: BP 132/66
[2017-10-16 03:24] VITALS: BP 142/103
[2017-10-16 06:14] LABS: HEMATOCRIT 39.7 % (38.0-50.0); HEMOGLOBIN 13.4 G/DL (12.5-16.6); MCH 28.9 PG (29.0-34.0); MCHC 33.8 G/DL (30.0-36.0); MCV 85.7 FL (86-99); PLATELET COUNT 312 K/uL (156-360); RBC DIS.WIDTH-CV 15.8 % (11.8-14.6); RBC DIS.WIDTH-SD 49.9 % (39-53); RED BLOOD COUNT 4.63 M/uL (4.00-5.50); WHITE BLOOD COUNT 10.1 K/uL (4.1-10.2)
[2017-10-16 06:43] LABS: CHLORIDE 108 MEQ/L (99-109); CREATININE 0.8 MG/DL (0.6-1.3); GFR ESTIMATE (CALCULATED) > 59 mL/min/ (58.99-99999); GLUCOSE 95 mg/dL (70-99); SODIUM 140 MEQ/L (136-147); UREA NITROGEN (BUN) 7 mg/dL (9-23)
[2017-10-16 08:00] VITALS: BP 154/99
[2017-10-16] MEDS ORDERED: PERCOCET 5/31 TABLET PO (08:34)
[2017-10-16] MEDS ORDERED: ZOFRAN ODT4 MG PO (08:34)
[2017-10-16] MEDS ORDERED: FLORASTOR250 MG PO (08:34)
[2017-10-16] MEDS ORDERED: VANCOCIN HCL125 MG PO (08:34)
== END 2017-10-16 10:40 | disposition home or self-care (01) | DRG 372 ==
LOC: EME 21:37 → EDOF 10-14 03:47 → 5SOUTH 10-14 03:47 → ENRESERV 10-14 03:53 → 5SOUTH 10-14 05:28 → ENPENDDIS 10-16 → 5SOUTH 10-16 10:40
PROVIDERS: Hospitalist; Physician Assistant
DX: A04.71 Enterocolitis due to Clostridium difficile, recurrent (principal); K50.10 Crohn's disease of large intestine without complications; I10 Essential (primary) hypertension; K21.9 Gastro-esophageal reflux disease without esophagitis; M06.9 Rheumatoid arthritis, unspecified; F32.9 Major depressive disorder, single episode, unspecified; F41.9 Anxiety disorder, unspecified; G43.909 Migraine, unspecified, not intractable, without status migrainosus; F17.210 Nicotine dependence, cigarettes, uncomplicated; Z87.442 Personal history of urinary calculi; Z90.49 Acquired absence of other specified parts of digestive tract
CPT/HCPCS: 74177; 80048; 80053; 81003; 83735; 85025; 85027; 87086; 87493; 99281; 99285; J1170; J1650; J2405; J3010; J7030

== ENCOUNTER 2017-10-21 21:15 | Emergency (ER) | payer OTHER ==
[~2017-10-21] VITALS: Ht 180.3 cm; Wt 81.8 kg
[2017-10-21 21:39] LABS: HEMATOCRIT 42.8 % (38.0-50.0); HEMOGLOBIN 14.3 G/DL (12.5-16.6); MCH 29.5 PG (29.0-34.0); MCHC 33.4 G/DL (30.0-36.0); MCV 88.2 FL (86-99); PLATELET COUNT 302 K/uL (156-360); RBC DIS.WIDTH-CV 16.7 % (11.8-14.6); RBC DIS.WIDTH-SD 53.4 % (39-53); RED BLOOD COUNT 4.85 M/uL (4.00-5.50); WHITE BLOOD COUNT 11.2 K/uL (4.1-10.2)
[2017-10-21 22:17] LABS: CHLORIDE 111 mEq/L (99-109); POTASSIUM 3.9 mEq/L (3.7-5.4); SODIUM 141 mEq/L (136-147)
[2017-10-21 22:20] LABS: GLUCOSE 93 mg/dL (70-99); TOTAL PROTEIN 7.7 g/dL (6.4-8.3)
[2017-10-21 22:22] LABS: TOTAL BILIRUBIN 0.3 mg/dL (0.0-1.0)
[2017-10-21 22:23] LABS: ALKALINE PHOSPHATASE 94 IU/L (3-129)
[2017-10-21 22:24] LABS: CREATININE 0.8 mg/dL (0.6-1.3); GFR ESTIMATE (CALCULATED) > 59 mL/min/ (58.99-99999)
[2017-10-21 22:25] LABS: AST (GOT) 18 IU/L (2-34); DIRECT BILIRUBIN 0.2 mg/dL (0.0-0.3); UREA NITROGEN (BUN) 14 mg/dL (9-23)
[2017-10-21 22:26] LABS: ALT (GPT) 9 IU/L (3-49)
[2017-10-21 22:27] LABS: LIPASE 27 U/L (1.0-51.0)
[2017-10-22 03:28] LABS: APPEARANCE SL.HAZY ((CLEAR)); BILIRUBIN NEGATIVE; BLOOD LARGE; COLOR YELLOW ((YELLOW)); GLUCOSE (STRIP) NEGATIVE; KETONES NEGATIVE; LEUKOCYTES NEGATIVE; NITRITE NEGATIVE; PROTEIN (STRIP) 30; SPECIFIC GRAVITY 1.017 (1.000-1.030); UROBILINOGEN 0.2 MG/DL (0.2-1.0)
[2017-10-22 03:46] LABS: BACTERIA RARE /HPF; EPITHELIAL CELLS RARE /HPF; MUCUS TRACE /LPF; RED BLOOD CELLS TNTC /HPF (0-5); UCUL ADDED? YES; WHITE BLOOD CELLS 0-5 /HPF (0-5)
[2017-10-22] MEDS ORDERED: REGLAN10 MG PO (04:25)
[2017-10-22 04:35] VITALS: BP 149/103
== END 2017-10-22 04:50 | disposition home or self-care (01) ==
LOC: EME 21:15
PROVIDERS: Physician Assistant
DX: A04.72 Enterocolitis due to Clostridium difficile, not specified as recurrent (principal); K50.90 Crohn's disease, unspecified, without complications; R11.2 Nausea with vomiting, unspecified; E86.0 Dehydration; K21.9 Gastro-esophageal reflux disease without esophagitis; I10 Essential (primary) hypertension; M06.9 Rheumatoid arthritis, unspecified; F41.9 Anxiety disorder, unspecified; F32.9 Major depressive disorder, single episode, unspecified; F17.200 Nicotine dependence, unspecified, uncomplicated; Z86.19 Personal history of other infectious and parasitic diseases; Z87.442 Personal history of urinary calculi; Z90.49 Acquired absence of other specified parts of digestive tract; Z88.5 Allergy status to narcotic agent; Z88.6 Allergy status to analgesic agent
CPT/HCPCS: 74021; 80053; 81003; 82248; 83690; 85027; 87086; 99281; 99285; J1170; J1200; J1885; J2765; J7030; J7050

== ENCOUNTER 2017-10-28 09:41 | Emergency (ER) | payer OTHER ==
[~2017-10-28] VITALS: Ht 180.3 cm; Wt 81.1 kg
[~2017-10-28 09:41] MED LIST changes: +REGLAN10 MG PO
[2017-10-28 11:24] LABS: HEMATOCRIT 45.3 % (38.0-50.0); HEMOGLOBIN 15.3 G/DL (12.5-16.6); MCH 29.7 PG (29.0-34.0); MCHC 33.8 G/DL (30.0-36.0); PLATELET COUNT 337 K/uL (156-360); RBC DIS.WIDTH-CV 16.1 % (11.8-14.6); RBC DIS.WIDTH-SD 52.4 % (39-53); RED BLOOD COUNT 5.15 M/uL (4.00-5.50); WHITE BLOOD COUNT 14.7 K/uL (4.1-10.2)
[2017-10-28 11:34] LABS: ALBUMIN 4.6 g/dL (3.2-4.8)
[2017-10-28 11:35] LABS: CHLORIDE 108 mEq/L (99-109); POTASSIUM 3.8 mEq/L (3.7-5.4); SODIUM 141 mEq/L (136-147)
[2017-10-28 11:37] LABS: GLUCOSE 92 mg/dL (70-99)
[2017-10-28 11:39] LABS: TOTAL BILIRUBIN 0.4 mg/dL (0.0-1.0)
[2017-10-28 11:40] LABS: ALKALINE PHOSPHATASE 104 IU/L (3-129)
[2017-10-28 11:41] LABS: GFR ESTIMATE (CALCULATED) > 59 mL/min/ (58.99-99999)
[2017-10-28 11:42] LABS: AST (GOT) 17 IU/L (2-34); UREA NITROGEN (BUN) 11 mg/dL (9-23)
[2017-10-28 11:44] LABS: ALT (GPT) 8 IU/L (3-49)
[2017-10-28] MEDS ORDERED: REGLAN10 MG PO (12:39)
[2017-10-28] MEDS ORDERED: LEVSIN0.125 MG PO (12:39)
[2017-10-28 13:02] VITALS: BP 128/96
[2017-10-28] MEDS ORDERED: VANCOMYCIN HCL250 MG PO (19:35)
[2017-10-28] MEDS ORDERED: FLAGYL500 MG PO (19:35)
[2017-10-28] MEDS ORDERED: PERCOCET 5/31 TABLET PO (19:35)
[2017-10-28] MEDS ORDERED: COMPAZINE10 MG PO (19:37)
[2017-10-28] MEDS ORDERED: ZOFRAN ODT4 MG PO (19:37)
== END 2017-10-28 13:03 | disposition home or self-care (01) ==
LOC: EME 09:41
DX: R10.84 Generalized abdominal pain (principal); G89.29 Other chronic pain; R11.2 Nausea with vomiting, unspecified; R19.7 Diarrhea, unspecified; K50.90 Crohn's disease, unspecified, without complications; I10 Essential (primary) hypertension; K21.9 Gastro-esophageal reflux disease without esophagitis; M06.9 Rheumatoid arthritis, unspecified; F41.9 Anxiety disorder, unspecified; F32.9 Major depressive disorder, single episode, unspecified; F17.200 Nicotine dependence, unspecified, uncomplicated; Z87.442 Personal history of urinary calculi; Z90.49 Acquired absence of other specified parts of digestive tract; Z87.19 Personal history of other diseases of the digestive system; Z88.5 Allergy status to narcotic agent; Z88.6 Allergy status to analgesic agent
CPT/HCPCS: 74021; 80053; 81003; 85027; 99281; 99284; J2765; S0028

== ENCOUNTER 2017-10-28 14:03 | Emergency (ER) | payer OTHER ==
[~2017-10-28] VITALS: Ht 180.3 cm; Wt 80.8 kg
[~2017-10-28 14:03] MED LIST changes: +LEVSIN0.125 MG PO
[2017-10-28] MEDS ORDERED: FLAGYL500 MG PO (19:35)
[2017-10-28] MEDS ORDERED: PERCOCET 5/31 TABLET PO (19:35)
[2017-10-28] MEDS ORDERED: VANCOMYCIN HCL250 MG PO (19:35)
[2017-10-28] MEDS ORDERED: COMPAZINE10 MG PO (19:37)
[2017-10-28] MEDS ORDERED: ZOFRAN ODT4 MG PO (19:37)
[2017-10-28 19:46] VITALS: BP 135/90
== END 2017-10-28 19:50 | disposition home or self-care (01) ==
LOC: EME 14:03
DX: A04.72 Enterocolitis due to Clostridium difficile, not specified as recurrent (principal); Z88.5 Allergy status to narcotic agent; Z88.6 Allergy status to analgesic agent
CPT/HCPCS: 99281; 99284

== ENCOUNTER 2017-11-06 22:50 | Emergency (ER) | payer OTHER ==
[~2017-11-06] VITALS: Ht 180.3 cm; Wt 84.1 kg
[~2017-11-06 22:50] MED LIST changes: +COMPAZINE10 MG PO
[2017-11-06 23:36] LABS: HEMATOCRIT 39.1 % (38.0-50.0); HEMOGLOBIN 13.4 G/DL (12.5-16.6); MCH 29.8 PG (29.0-34.0); MCHC 34.3 G/DL (30.0-36.0); MCV 87.1 FL (86-99); PLATELET COUNT 286 K/uL (156-360); RBC DIS.WIDTH-CV 15.8 % (11.8-14.6); RBC DIS.WIDTH-SD 50.3 % (39-53); RED BLOOD COUNT 4.49 M/uL (4.00-5.50); WHITE BLOOD COUNT 15.7 K/uL (4.1-10.2)
[2017-11-06 23:44] LABS: CHLORIDE 110 mEq/L (99-109); POTASSIUM 3.5 mEq/L (3.7-5.4); SODIUM 141 mEq/L (136-147)
[2017-11-06 23:46] LABS: GLUCOSE 101 mg/dL (70-99)
[2017-11-06 23:50] LABS: GFR ESTIMATE (CALCULATED) > 59 mL/min/ (58.99-99999)
[2017-11-06 23:51] LABS: UREA NITROGEN (BUN) 19 mg/dL (9-23)
[2017-11-07 03:23] LABS: APPEARANCE SL.HAZY ((CLEAR)); BILIRUBIN NEGATIVE; BLOOD NEGATIVE; COLOR YELLOW ((YELLOW)); GLUCOSE (STRIP) NEGATIVE; KETONES NEGATIVE; LEUKOCYTES NEGATIVE; NITRITE NEGATIVE; PROTEIN (STRIP) NEGATIVE; SPECIFIC GRAVITY 1.024 (1.000-1.030); UROBILINOGEN 0.2 MG/DL (0.2-1.0)
[2017-11-07 03:51] LABS: BACTERIA RARE /HPF; CALCIUM OXALATE CRYSTALS 1+ /HPF; EPITHELIAL CELLS NONE SEEN /HPF; MUCUS NONE SEEN /LPF; RED BLOOD CELLS 0-5 /HPF (0-5); UCUL ADDED? NO; WHITE BLOOD CELLS 0-5 /HPF (0-5)
[2017-11-07] MEDS ORDERED: PERCOCET 5/31 TABLET PO (04:33)
[2017-11-07] MEDS ORDERED: MEDROL DOSEPAK4 MG PO (04:33)
[2017-11-07] MEDS ORDERED: FLAGYL500 MG PO (04:33)
[2017-11-07] MEDS ORDERED: CIPRO500 MG PO (04:33)
[2017-11-07 05:53] VITALS: BP 130/73
== END 2017-11-07 05:56 | disposition home or self-care (01) ==
LOC: EME 22:50
PROVIDERS: Emergency Medicine
DX: A04.72 Enterocolitis due to Clostridium difficile, not specified as recurrent (principal); K50.911 Crohn's disease, unspecified, with rectal bleeding; I10 Essential (primary) hypertension; K21.9 Gastro-esophageal reflux disease without esophagitis; M06.9 Rheumatoid arthritis, unspecified; F41.9 Anxiety disorder, unspecified; F32.9 Major depressive disorder, single episode, unspecified; F17.200 Nicotine dependence, unspecified, uncomplicated; Z87.19 Personal history of other diseases of the digestive system; Z90.49 Acquired absence of other specified parts of digestive tract; Z87.442 Personal history of urinary calculi; Z88.5 Allergy status to narcotic agent; Z88.8 Allergy status to other drugs, medicaments and biological substances
CPT/HCPCS: 74018; 80048; 81003; 85027; 86850; 86900; 86901; 87493; 99281; 99284; J0500

== ENCOUNTER 2017-11-19 23:25 | Emergency (ER) | payer OTHER ==
[~2017-11-19] VITALS: Ht 180.3 cm; Wt 81.5 kg
[~2017-11-19 23:25] MED LIST changes: +MEDROL DOSEPAK4 MG PO
[2017-11-20 00:22] LABS: HEMOGLOBIN 13.6 G/DL (12.5-16.6); MCH 29.6 PG (29.0-34.0); PLATELET COUNT 296 K/uL (156-360); RBC DIS.WIDTH-CV 15.7 % (11.8-14.6); RBC DIS.WIDTH-SD 50.5 % (39-53); WHITE BLOOD COUNT 14.3 K/uL (4.1-10.2)
[2017-11-20 00:33] LABS: ALBUMIN 4.2 g/dL (3.2-4.8); CHLORIDE 109 mEq/L (99-109); POTASSIUM 3.9 mEq/L (3.7-5.4); SODIUM 140 mEq/L (136-147)
[2017-11-20 00:35] LABS: GLUCOSE 88 mg/dL (70-99); TOTAL PROTEIN 7.8 g/dL (6.4-8.3)
[2017-11-20 00:37] LABS: TOTAL BILIRUBIN 0.4 mg/dL (0.0-1.0)
[2017-11-20 00:39] LABS: ALKALINE PHOSPHATASE 84 IU/L (3-129); GFR ESTIMATE (CALCULATED) > 59 mL/min/ (58.99-99999)
[2017-11-20 00:40] LABS: UREA NITROGEN (BUN) 18 mg/dL (9-23)
[2017-11-20 00:41] LABS: AST (GOT) 16 IU/L (2-34)
[2017-11-20 00:42] LABS: ALT (GPT) 11 IU/L (3-49)
[2017-11-20] MEDS ORDERED: ZOFRAN ODT8 MG PO (01:23)
[2017-11-20 02:17] LABS: APPEARANCE SL.HAZY ((CLEAR)); BILIRUBIN NEGATIVE; BLOOD LARGE; COLOR YELLOW ((YELLOW)); GLUCOSE (STRIP) NEGATIVE; KETONES 5; LEUKOCYTES NEGATIVE; NITRITE NEGATIVE; PROTEIN (STRIP) 30; SPECIFIC GRAVITY 1.026 (1.000-1.030)
[2017-11-20 02:40] LABS: BACTERIA 1+ /HPF; EPITHELIAL CELLS RARE /HPF; MUCUS NONE SEEN /LPF; RED BLOOD CELLS 20-30 /HPF (0-5); UCUL ADDED? NO; WHITE BLOOD CELLS 0-5 /HPF (0-5)
[2017-11-20 05:16] VITALS: BP 106/69
== END 2017-11-20 05:17 | disposition home or self-care (01) ==
LOC: EME 23:25
PROVIDERS: Emergency Medicine Emergency Medical Services
DX: K50.90 Crohn's disease, unspecified, without complications (principal); E86.0 Dehydration; E11.9 Type 2 diabetes mellitus without complications; I10 Essential (primary) hypertension; K21.9 Gastro-esophageal reflux disease without esophagitis; M06.9 Rheumatoid arthritis, unspecified; F41.9 Anxiety disorder, unspecified; F32.9 Major depressive disorder, single episode, unspecified; F17.200 Nicotine dependence, unspecified, uncomplicated; Z98.890 Other specified postprocedural states; Z87.19 Personal history of other diseases of the digestive system; Z87.442 Personal history of urinary calculi; Z90.49 Acquired absence of other specified parts of digestive tract; Z88.5 Allergy status to narcotic agent; Z88.6 Allergy status to analgesic agent
CPT/HCPCS: 80053; 81003; 85027; 99281; 99285; J0780; J3010; J7040

== ENCOUNTER 2017-11-24 23:31 | Emergency (ER) | payer OTHER ==
[~2017-11-24] VITALS: Ht 180.3 cm; Wt 82.9 kg
[2017-11-24 23:55] LABS: HEMATOCRIT 39.3 % (38.0-50.0); HEMOGLOBIN 13.3 G/DL (12.5-16.6); MCH 29.7 PG (29.0-34.0); MCHC 33.8 G/DL (30.0-36.0); MCV 87.7 FL (86-99); PLATELET COUNT 300 K/uL (156-360); RBC DIS.WIDTH-SD 48.5 % (39-53); RED BLOOD COUNT 4.48 M/uL (4.00-5.50)
[2017-11-25 00:06] LABS: CHLORIDE 109 mEq/L (99-109); POTASSIUM 3.7 mEq/L (3.7-5.4); SODIUM 140 mEq/L (136-147)
[2017-11-25 00:08] LABS: GLUCOSE 102 mg/dL (70-99)
[2017-11-25 00:09] LABS: TOTAL PROTEIN 7.6 g/dL (6.4-8.3)
[2017-11-25 00:12] LABS: ALKALINE PHOSPHATASE 83 IU/L (3-129); CREATININE 0.9 mg/dL (0.6-1.3); GFR ESTIMATE (CALCULATED) > 59 mL/min/ (58.99-99999)
[2017-11-25 00:13] LABS: UREA NITROGEN (BUN) 11 mg/dL (9-23)
[2017-11-25 00:14] LABS: AST (GOT) 13 IU/L (2-34); DIRECT BILIRUBIN 0.2 mg/dL (0.0-0.3)
[2017-11-25 00:15] LABS: ALT (GPT) 5 IU/L (3-49); LIPASE 120 U/L (1.0-51.0)
[2017-11-25 00:16] LABS: TOTAL BILIRUBIN 0.2 mg/dL (0.0-1.0)
[2017-11-25 01:23] VITALS: BP 131/97
== END 2017-11-25 01:58 | disposition home or self-care (01) ==
LOC: EME 23:31
PROVIDERS: Emergency Medicine
DX: K52.9 Noninfective gastroenteritis and colitis, unspecified (principal); N20.0 Calculus of kidney; I10 Essential (primary) hypertension; Z90.49 Acquired absence of other specified parts of digestive tract; Z87.442 Personal history of urinary calculi; F17.200 Nicotine dependence, unspecified, uncomplicated
CPT/HCPCS: 74176; 80048; 80076; 81003; 83690; 85027; 87086; 99281; 99283

== ENCOUNTER 2017-12-04 20:12 | Emergency (ER) | payer OTHER ==
[~2017-12-04] VITALS: Ht 180.3 cm; Wt 81.9 kg
[2017-12-04 20:36] LABS: HEMATOCRIT 41.8 % (38.0-50.0); HEMOGLOBIN 14.4 G/DL (12.5-16.6); MCH 30.1 PG (29.0-34.0); MCHC 34.4 G/DL (30.0-36.0); MCV 87.3 FL (86-99); PLATELET COUNT 360 K/uL (156-360); RBC DIS.WIDTH-CV 14.4 % (11.8-14.6); RBC DIS.WIDTH-SD 46.3 % (39-53); RED BLOOD COUNT 4.79 M/uL (4.00-5.50); WHITE BLOOD COUNT 10.2 K/uL (4.1-10.2)
[2017-12-04 20:46] LABS: ALBUMIN 4.1 g/dL (3.2-4.8); CHLORIDE 112 mEq/L (99-109); POTASSIUM 3.9 mEq/L (3.7-5.4); SODIUM 140 mEq/L (136-147)
[2017-12-04 20:49] LABS: GLUCOSE 98 mg/dL (70-99); TOTAL PROTEIN 7.8 g/dL (6.4-8.3)
[2017-12-04 20:51] LABS: TOTAL BILIRUBIN 0.4 mg/dL (0.0-1.0)
[2017-12-04 20:52] LABS: ALKALINE PHOSPHATASE 138 IU/L (3-129); CREATININE 0.9 mg/dL (0.6-1.3); GFR ESTIMATE (CALCULATED) > 59 mL/min/ (58.99-99999)
[2017-12-04 20:53] LABS: UREA NITROGEN (BUN) 11 mg/dL (9-23)
[2017-12-04 20:54] LABS: AST (GOT) 17 IU/L (2-34)
[2017-12-04 20:55] LABS: ALT (GPT) 35 IU/L (3-49)
[2017-12-04] MEDS ORDERED: ZOFRAN ODT4 MG PO (23:39)
[2017-12-04] MEDS ORDERED: PHENERGAN25 MG PR (23:51)
[2017-12-04] MEDS ORDERED: PERCOCET 5/31 TABLET PO (23:51)
[2017-12-05 00:28] VITALS: BP 142/91
== END 2017-12-04 23:45 | disposition home or self-care (01) ==
LOC: EME 20:12
DX: A04.72 Enterocolitis due to Clostridium difficile, not specified as recurrent (principal); K50.90 Crohn's disease, unspecified, without complications; K21.9 Gastro-esophageal reflux disease without esophagitis; M06.9 Rheumatoid arthritis, unspecified; I10 Essential (primary) hypertension; F41.9 Anxiety disorder, unspecified; F32.9 Major depressive disorder, single episode, unspecified; F17.200 Nicotine dependence, unspecified, uncomplicated; Z87.442 Personal history of urinary calculi; Z90.49 Acquired absence of other specified parts of digestive tract; Z88.5 Allergy status to narcotic agent; Z88.6 Allergy status to analgesic agent
CPT/HCPCS: 80053; 81003; 85027; 87493; 87506; 99281; 99285; J0780; J3010; J7030

== ENCOUNTER 2017-12-14 23:37 | Emergency (ER) | payer OTHER ==
[~2017-12-14] VITALS: Ht 180.3 cm; Wt 81.2 kg
[~2017-12-14 23:37] MED LIST changes: +PHENERGAN25 MG PR
[2017-12-15 00:03] LABS: HEMATOCRIT 40.3 % (38.0-50.0); HEMOGLOBIN 13.9 G/DL (12.5-16.6); MCH 30.2 PG (29.0-34.0); MCHC 34.5 G/DL (30.0-36.0); MCV 87.4 FL (86-99); PLATELET COUNT 330 K/uL (156-360); RBC DIS.WIDTH-CV 14.4 % (11.8-14.6); RBC DIS.WIDTH-SD 46.3 % (39-53); RED BLOOD COUNT 4.61 M/uL (4.00-5.50)
[2017-12-15 00:17] LABS: ALBUMIN 4.1 g/dL (3.2-4.8); CHLORIDE 109 mEq/L (99-109); POTASSIUM 3.6 mEq/L (3.7-5.4); SODIUM 140 mEq/L (136-147)
[2017-12-15 00:20] LABS: GLUCOSE 95 mg/dL (70-99); TOTAL PROTEIN 7.6 g/dL (6.4-8.3)
[2017-12-15 00:22] LABS: TOTAL BILIRUBIN 0.3 mg/dL (0.0-1.0)
[2017-12-15 00:23] LABS: ALKALINE PHOSPHATASE 97 IU/L (3-129); CREATININE 0.8 mg/dL (0.6-1.3); GFR ESTIMATE (CALCULATED) > 59 mL/min/ (58.99-99999)
[2017-12-15 00:25] LABS: AST (GOT) 13 IU/L (2-34); UREA NITROGEN (BUN) 10 mg/dL (9-23)
[2017-12-15 00:26] LABS: ALT (GPT) 8 IU/L (3-49)
[2017-12-15 00:27] LABS: LIPASE 18 U/L (1.0-51.0)
[2017-12-15] MEDS ORDERED: ZOFRAN ODT4 MG PO (03:07)
[2017-12-15 04:30] VITALS: BP 124/90
== END 2017-12-15 04:34 | disposition home or self-care (01) ==
LOC: EME 23:37
DX: A04.72 Enterocolitis due to Clostridium difficile, not specified as recurrent (principal); I10 Essential (primary) hypertension; K21.9 Gastro-esophageal reflux disease without esophagitis; M06.9 Rheumatoid arthritis, unspecified; K50.90 Crohn's disease, unspecified, without complications; G43.909 Migraine, unspecified, not intractable, without status migrainosus; F41.9 Anxiety disorder, unspecified; F32.9 Major depressive disorder, single episode, unspecified; F17.200 Nicotine dependence, unspecified, uncomplicated; Z87.442 Personal history of urinary calculi; Z87.19 Personal history of other diseases of the digestive system; Z90.49 Acquired absence of other specified parts of digestive tract; Z88.5 Allergy status to narcotic agent; Z88.8 Allergy status to other drugs, medicaments and biological substances
CPT/HCPCS: 74022; 80053; 81003; 83690; 85027; 87493; 99281; 99285; J2405; J3010; J7030; S0030

== ENCOUNTER 2017-12-16 22:06 | Emergency (ER) | payer OTHER ==
[~2017-12-16] VITALS: Ht 180.3 cm; Wt 78.1 kg
[2017-12-16 22:30] LABS: HEMATOCRIT 46.4 % (38.0-50.0); HEMOGLOBIN 15.8 G/DL (12.5-16.6); MCH 30.1 PG (29.0-34.0); MCHC 34.1 G/DL (30.0-36.0); MCV 88.4 FL (86-99); PLATELET COUNT 373 K/uL (156-360); RBC DIS.WIDTH-CV 14.3 % (11.8-14.6); RBC DIS.WIDTH-SD 46.5 % (39-53); RED BLOOD COUNT 5.25 M/uL (4.00-5.50)
[2017-12-16 22:39] LABS: ALBUMIN 4.7 g/dL (3.2-4.8); CHLORIDE 108 mEq/L (99-109); POTASSIUM 3.9 mEq/L (3.7-5.4); SODIUM 141 mEq/L (136-147)
[2017-12-16 22:41] LABS: GLUCOSE 98 mg/dL (70-99)
[2017-12-16 22:43] LABS: TOTAL PROTEIN 8.9 g/dL (6.4-8.3)
[2017-12-16 22:45] LABS: ALKALINE PHOSPHATASE 109 IU/L (3-129); CREATININE 1.1 mg/dL (0.6-1.3); GFR ESTIMATE (CALCULATED) > 59 mL/min/ (58.99-99999); TOTAL BILIRUBIN 0.5 mg/dL (0.0-1.0)
[2017-12-16 22:46] LABS: UREA NITROGEN (BUN) 11 mg/dL (9-23)
[2017-12-16 22:47] LABS: AST (GOT) 15 IU/L (2-34)
[2017-12-16 22:48] LABS: ALT (GPT) 7 IU/L (3-49)
[2017-12-17 01:05] LABS: APPEARANCE CLEAR ((CLEAR)); BILIRUBIN NEGATIVE; BLOOD SMALL; COLOR YELLOW ((YELLOW)); GLUCOSE (STRIP) NEGATIVE; KETONES 20; LEUKOCYTES NEGATIVE; NITRITE NEGATIVE; PROTEIN (STRIP) 30; SPECIFIC GRAVITY 1.021 (1.000-1.030)
[2017-12-17 01:12] LABS: BACTERIA NONE SEEN /HPF; EPITHELIAL CELLS RARE /HPF; MUCUS TRACE /LPF; RED BLOOD CELLS 0-5 /HPF (0-5); UCUL ADDED? NO; WHITE BLOOD CELLS 0-5 /HPF (0-5)
[2017-12-17 03:30] LABS: C DIFF TOXIN POSITIVE (NEGATIVE)
[2017-12-17] MEDS ORDERED: REGLAN10 MG PO (03:43)
[2017-12-17 04:22] VITALS: BP 139/97
== END 2017-12-17 04:23 | disposition home or self-care (01) ==
LOC: EME 22:06
PROVIDERS: Physician Assistant
DX: A04.72 Enterocolitis due to Clostridium difficile, not specified as recurrent (principal); G89.29 Other chronic pain; R10.9 Unspecified abdominal pain; Z87.442 Personal history of urinary calculi; M06.9 Rheumatoid arthritis, unspecified; K50.90 Crohn's disease, unspecified, without complications; K21.9 Gastro-esophageal reflux disease without esophagitis; I10 Essential (primary) hypertension; F41.9 Anxiety disorder, unspecified; F32.9 Major depressive disorder, single episode, unspecified; F10.10 Alcohol abuse, uncomplicated; F17.200 Nicotine dependence, unspecified, uncomplicated; Z88.5 Allergy status to narcotic agent; Z88.6 Allergy status to analgesic agent
CPT/HCPCS: 74022; 80053; 81003; 85027; 87493; 87506; 99281; 99285; J2765; J7030; J7050

== ENCOUNTER 2017-12-28 22:04 | Emergency (ER) | payer OTHER ==
[~2017-12-28] VITALS: Ht 180.3 cm; Wt 79.3 kg
[2017-12-28 23:17] LABS: HEMATOCRIT 43.2 % (38.0-50.0); HEMOGLOBIN 14.6 G/DL (12.5-16.6); MCH 29.7 PG (29.0-34.0); MCHC 33.8 G/DL (30.0-36.0); MCV 87.8 FL (86-99); PLATELET COUNT 325 K/uL (156-360); RBC DIS.WIDTH-CV 14.2 % (11.8-14.6); RED BLOOD COUNT 4.92 M/uL (4.00-5.50); WHITE BLOOD COUNT 13.4 K/uL (4.1-10.2)
[2017-12-28 23:25] LABS: ALBUMIN 4.1 g/dL (3.2-4.8); CHLORIDE 109 mEq/L (99-109); POTASSIUM 3.5 mEq/L (3.7-5.4); SODIUM 141 mEq/L (136-147)
[2017-12-28 23:27] LABS: GLUCOSE 112 mg/dL (70-99)
[2017-12-28 23:28] LABS: TOTAL PROTEIN 7.8 g/dL (6.4-8.3)
[2017-12-28 23:29] LABS: TOTAL BILIRUBIN 0.3 mg/dL (0.0-1.0)
[2017-12-28 23:31] LABS: ALKALINE PHOSPHATASE 88 IU/L (3-129); CREATININE 0.9 mg/dL (0.6-1.3); GFR ESTIMATE (CALCULATED) > 59 mL/min/ (58.99-99999)
[2017-12-28 23:32] LABS: UREA NITROGEN (BUN) 14 mg/dL (9-23)
[2017-12-28 23:33] LABS: AST (GOT) 18 IU/L (2-34)
[2017-12-28 23:34] LABS: ALT (GPT) 10 IU/L (3-49)
[2017-12-29 00:20] LABS: LIPASE 23 U/L (1.0-51.0)
[2017-12-29 00:26] LABS: TROP-I INTERPRETATION NEGATIVE; TROPONIN-I 0.01 ng/mL (0.0-0.30)
[2017-12-29 01:41] LABS: APPEARANCE CLEAR ((CLEAR)); BILIRUBIN NEGATIVE; BLOOD NEGATIVE; COLOR YELLOW ((YELLOW)); GLUCOSE (STRIP) NEGATIVE; KETONES NEGATIVE; LEUKOCYTES NEGATIVE; NITRITE NEGATIVE; PROTEIN (STRIP) 30; SPECIFIC GRAVITY 1.027 (1.000-1.030); UCUL ADDED? NO; UROBILINOGEN 0.2 MG/DL (0.2-1.0)
[2017-12-29] MEDS ORDERED: PERCOCET 5/31 TABLET PO (02:16)
[2017-12-29] MEDS ORDERED: REGLAN10 MG PO (02:16)
[2017-12-29 03:51] VITALS: BP 118/81
== END 2017-12-29 03:53 | disposition home or self-care (01) ==
LOC: EME 22:04
DX: R19.7 Diarrhea, unspecified (principal); R11.2 Nausea with vomiting, unspecified; R10.84 Generalized abdominal pain; Z86.19 Personal history of other infectious and parasitic diseases; K50.90 Crohn's disease, unspecified, without complications; I10 Essential (primary) hypertension; F17.200 Nicotine dependence, unspecified, uncomplicated; F32.9 Major depressive disorder, single episode, unspecified; F41.9 Anxiety disorder, unspecified; K21.9 Gastro-esophageal reflux disease without esophagitis; M06.9 Rheumatoid arthritis, unspecified; Z87.442 Personal history of urinary calculi; Z88.5 Allergy status to narcotic agent; Z88.6 Allergy status to analgesic agent
CPT/HCPCS: 71045; 80053; 81003; 83690; 84484; 85027; 87493; 93005; 99281; 99285; J2765; J3010; J7030

== ENCOUNTER 2018-01-12 23:17 | Emergency (ER) | payer OTHER ==
[~2018-01-12] VITALS: Ht 180.3 cm; Wt 80.1 kg
[2018-01-13 00:16] LABS: HEMATOCRIT 42.6 % (38.0-50.0); HEMOGLOBIN 14.7 G/DL (12.5-16.6); MCH 30.3 PG (29.0-34.0); MCHC 34.5 G/DL (30.0-36.0); MCV 87.8 FL (86-99); RBC DIS.WIDTH-CV 14.6 % (11.8-14.6); RBC DIS.WIDTH-SD 47.5 % (39-53); RED BLOOD COUNT 4.85 M/uL (4.00-5.50)
[2018-01-13 00:22] LABS: ALBUMIN 4.1 g/dL (3.2-4.8); CHLORIDE 112 mEq/L (99-109); SODIUM 139 mEq/L (136-147)
[2018-01-13 00:25] LABS: GLUCOSE 90 mg/dL (70-99); TOTAL PROTEIN 7.7 g/dL (6.4-8.3)
[2018-01-13 00:26] LABS: TOTAL BILIRUBIN 0.5 mg/dL (0.0-1.0)
[2018-01-13 00:28] LABS: ALKALINE PHOSPHATASE 90 IU/L (3-129); CREATININE 0.8 mg/dL (0.6-1.3); GFR ESTIMATE (CALCULATED) > 59 mL/min/ (58.99-99999)
[2018-01-13 00:29] LABS: UREA NITROGEN (BUN) 9 mg/dL (9-23)
[2018-01-13 00:30] LABS: AST (GOT) 17 IU/L (2-34)
[2018-01-13 00:31] LABS: ALT (GPT) 6 IU/L (3-49)
[2018-01-13 00:51] LABS: PLAT.SUFFICIENCY ADEQUATE
[2018-01-13 01:06] LABS: PLATELET COUNT 164 K/uL (156-360)
[2018-01-13 02:51] LABS: APPEARANCE CLEAR ((CLEAR)); BILIRUBIN NEGATIVE; BLOOD NEGATIVE; COLOR YELLOW ((YELLOW)); GLUCOSE (STRIP) NEGATIVE; KETONES NEGATIVE; LEUKOCYTES NEGATIVE; NITRITE NEGATIVE; PROTEIN (STRIP) 30; SPECIFIC GRAVITY 1.023 (1.000-1.030); UCUL ADDED? NO; UROBILINOGEN 0.2 MG/DL (0.2-1.0)
[2018-01-13] MEDS ORDERED: PERCOCET 5/31 TABLET PO (03:42)
[2018-01-13] MEDS ORDERED: COMPAZINE5 MG PO (03:42)
[2018-01-13] MEDS ORDERED: ZOFRAN ODT4 MG PO (03:42)
[2018-01-13 03:58] VITALS: BP 133/90
== END 2018-01-13 03:59 | disposition home or self-care (01) ==
LOC: EME 23:17
DX: A04.72 Enterocolitis due to Clostridium difficile, not specified as recurrent (principal); K50.90 Crohn's disease, unspecified, without complications; I10 Essential (primary) hypertension; K21.9 Gastro-esophageal reflux disease without esophagitis; F32.9 Major depressive disorder, single episode, unspecified; F41.9 Anxiety disorder, unspecified; Z87.442 Personal history of urinary calculi; M06.9 Rheumatoid arthritis, unspecified; F17.200 Nicotine dependence, unspecified, uncomplicated; Z88.5 Allergy status to narcotic agent; Z88.6 Allergy status to analgesic agent
CPT/HCPCS: 80053; 81003; 85027; 99281; 99285; J1200; J1630; J7030

== ENCOUNTER 2018-01-16 20:44 | Emergency (ER) | payer OTHER ==
[~2018-01-16] VITALS: Ht 180.3 cm; Wt 79.1 kg
[~2018-01-16 20:44] MED LIST changes: +COMPAZINE5 MG PO
[2018-01-16 22:05] LABS: HEMATOCRIT 41.2 % (38.0-50.0); HEMOGLOBIN 14.3 G/DL (12.5-16.6); MCH 30.5 PG (29.0-34.0); MCHC 34.7 G/DL (30.0-36.0); MCV 87.8 FL (86-99); RBC DIS.WIDTH-CV 14.7 % (11.8-14.6); RBC DIS.WIDTH-SD 47.3 % (39-53); RED BLOOD COUNT 4.69 M/uL (4.00-5.50); WHITE BLOOD COUNT 10.7 K/uL (4.1-10.2)
[2018-01-16 22:08] LABS: PLATELET COUNT 299 K/uL (156-360)
[2018-01-16 22:15] LABS: ALBUMIN 4.2 g/dL (3.2-4.8)
[2018-01-16 22:16] LABS: CHLORIDE 110 mEq/L (99-109); POTASSIUM 3.3 mEq/L (3.7-5.4); SODIUM 142 mEq/L (136-147)
[2018-01-16 22:18] LABS: GLUCOSE 90 mg/dL (70-99); TOTAL PROTEIN 7.9 g/dL (6.4-8.3)
[2018-01-16 22:20] LABS: TOTAL BILIRUBIN 0.5 mg/dL (0.0-1.0)
[2018-01-16 22:21] LABS: ALKALINE PHOSPHATASE 90 IU/L (3-129)
[2018-01-16 22:22] LABS: CREATININE 0.8 mg/dL (0.6-1.3); GFR ESTIMATE (CALCULATED) > 59 mL/min/ (58.99-99999)
[2018-01-16 22:23] LABS: AST (GOT) 17 IU/L (2-34); UREA NITROGEN (BUN) 10 mg/dL (9-23)
[2018-01-16 22:25] LABS: ALT (GPT) 8 IU/L (3-49); LIPASE 21 U/L (1.0-51.0)
[2018-01-17 00:51] LABS: C DIFF TOXIN POSITIVE (NEGATIVE)
[2018-01-17] MEDS ORDERED: PERCOCET 5/31 TABLET PO (01:00)
[2018-01-17] MEDS ORDERED: REGLAN10 MG PO (01:00)
[2018-01-17 01:32] VITALS: BP 143/93
== END 2018-01-17 02:04 | disposition home or self-care (01) ==
LOC: EME 20:44 → EXP 20:44
PROVIDERS: Physician Assistant
DX: A04.72 Enterocolitis due to Clostridium difficile, not specified as recurrent (principal); I10 Essential (primary) hypertension; K21.9 Gastro-esophageal reflux disease without esophagitis; K50.90 Crohn's disease, unspecified, without complications; M06.9 Rheumatoid arthritis, unspecified; F41.9 Anxiety disorder, unspecified; F32.9 Major depressive disorder, single episode, unspecified; F17.200 Nicotine dependence, unspecified, uncomplicated; Z86.19 Personal history of other infectious and parasitic diseases; Z87.442 Personal history of urinary calculi; Z98.890 Other specified postprocedural states; Z90.49 Acquired absence of other specified parts of digestive tract; Z88.6 Allergy status to analgesic agent; Z88.5 Allergy status to narcotic agent
CPT/HCPCS: 80053; 81003; 83690; 85027; 87493; 99281; 99285; J1200; J2765; J7030; S0028

== ENCOUNTER 2018-01-26 21:40 | Emergency (ER) | payer OTHER ==
[~2018-01-26] VITALS: Ht 180.3 cm; Wt 81.5 kg
[2018-01-26 22:37] LABS: HEMATOCRIT 38.4 % (38.0-50.0); HEMOGLOBIN 13.2 G/DL (12.5-16.6); MCH 30.6 PG (29.0-34.0); MCHC 34.4 G/DL (30.0-36.0); MCV 88.9 FL (86-99); PLATELET COUNT 303 K/uL (156-360); RBC DIS.WIDTH-CV 14.5 % (11.8-14.6); RBC DIS.WIDTH-SD 47.4 % (39-53); RED BLOOD COUNT 4.32 M/uL (4.00-5.50); WHITE BLOOD COUNT 11.4 K/uL (4.1-10.2)
[2018-01-26 23:08] LABS: ALBUMIN 3.6 G/DL (3.2-4.8); ALKALINE PHOSPHATASE 79 IU/L (3-129); ALT (GPT) 5 IU/L (3-49); AST (GOT) 13 IU/L (2-34); CHLORIDE 111 MEQ/L (99-109); CREATININE 0.8 MG/DL (0.6-1.3); GFR ESTIMATE (CALCULATED) > 59 mL/min/ (58.99-99999); GLUCOSE 91 mg/dL (70-99); POTASSIUM 3.5 MEQ/L (3.7-5.4); SODIUM 140 MEQ/L (136-147); TOTAL BILIRUBIN 0.2 MG/DL (0.0-1.0); TOTAL PROTEIN 7.1 G/DL (6.4-8.3); UREA NITROGEN (BUN) 13 mg/dL (9-23)
[2018-01-27 04:08] LABS: APPEARANCE CLEAR ((CLEAR)); BILIRUBIN NEGATIVE; BLOOD SMALL; COLOR YELLOW ((YELLOW)); GLUCOSE (STRIP) NEGATIVE; KETONES 5; LEUKOCYTES NEGATIVE; NITRITE NEGATIVE; PROTEIN (STRIP) NEGATIVE; SPECIFIC GRAVITY 1.019 (1.000-1.030); UROBILINOGEN 0.2 MG/DL (0.2-1.0)
[2018-01-27 04:10] LABS: BACTERIA NONE SEEN /HPF; EPITHELIAL CELLS RARE /HPF; MUCUS TRACE /LPF; UCUL ADDED? NO; WHITE BLOOD CELLS 0-5 /HPF (0-5)
[2018-01-27 04:58] LABS: C DIFF TOXIN POSITIVE (NEGATIVE)
[2018-01-27] MEDS ORDERED: PERCOCET 5/31 TABLET PO (05:24)
[2018-01-27] MEDS ORDERED: ZOFRAN ODT4 MG PO (05:24)
[2018-01-27 06:17] VITALS: BP 150/96
== END 2018-01-27 06:18 | disposition home or self-care (01) ==
LOC: EME 21:40
PROVIDERS: Emergency Medicine
DX: A04.71 Enterocolitis due to Clostridium difficile, recurrent (principal); K50.90 Crohn's disease, unspecified, without complications; K21.9 Gastro-esophageal reflux disease without esophagitis; I10 Essential (primary) hypertension; M06.9 Rheumatoid arthritis, unspecified; F41.9 Anxiety disorder, unspecified; F32.9 Major depressive disorder, single episode, unspecified; F17.200 Nicotine dependence, unspecified, uncomplicated; Z90.49 Acquired absence of other specified parts of digestive tract; Z87.442 Personal history of urinary calculi; Z88.5 Allergy status to narcotic agent; Z88.6 Allergy status to analgesic agent
CPT/HCPCS: 74022; 80053; 81003; 85027; 87493; 99281; 99285; J2405; J3010; J7040

== ENCOUNTER 2018-02-01 03:42 | Emergency (ER) | payer OTHER ==
[~2018-02-01] VITALS: Ht 180.3 cm; Wt 78.7 kg
[2018-02-01 04:28] LABS: ALBUMIN 4.1 g/dL (3.2-4.8); CHLORIDE 109 mEq/L (99-109); POTASSIUM 3.3 mEq/L (3.7-5.4); SODIUM 142 mEq/L (136-147)
[2018-02-01 04:29] LABS: HEMATOCRIT 38.6 % (38.0-50.0); HEMOGLOBIN 13.4 G/DL (12.5-16.6); MCH 30.7 PG (29.0-34.0); MCHC 34.7 G/DL (30.0-36.0); MCV 88.3 FL (86-99); PLATELET COUNT 324 K/uL (156-360); RBC DIS.WIDTH-SD 49.1 % (39-53); RED BLOOD COUNT 4.37 M/uL (4.00-5.50)
[2018-02-01 04:30] LABS: GLUCOSE 99 mg/dL (70-99); TOTAL PROTEIN 7.6 g/dL (6.4-8.3)
[2018-02-01 04:32] LABS: TOTAL BILIRUBIN 0.4 mg/dL (0.0-1.0)
[2018-02-01 04:34] LABS: ALKALINE PHOSPHATASE 94 IU/L (3-129); CREATININE 0.9 mg/dL (0.6-1.3); GFR ESTIMATE (CALCULATED) > 59 mL/min/ (58.99-99999)
[2018-02-01 04:35] LABS: UREA NITROGEN (BUN) 8 mg/dL (9-23)
[2018-02-01 04:36] LABS: AST (GOT) 17 IU/L (2-34)
[2018-02-01 04:37] LABS: ALT (GPT) 8 IU/L (3-49); LIPASE 18 U/L (1.0-51.0)
[2018-02-01] MEDS ORDERED: VANCOMYCIN125 MG/2.5 PO (05:36)
[2018-02-01] MEDS ORDERED: FLAGYL500 MG PO (05:36)
[2018-02-01] MEDS ORDERED: ONDANSETRON ODT4 MG PO (06:05)
[2018-02-01] MEDS ORDERED: PROVENTIL HFA6.7 GM IH (06:05)
[2018-02-01 06:17] VITALS: BP 149/110
== END 2018-02-01 06:18 | disposition home or self-care (01) ==
LOC: EME 03:42
DX: A04.72 Enterocolitis due to Clostridium difficile, not specified as recurrent (principal); R05 Cough; R11.2 Nausea with vomiting, unspecified; Z93.3 Colostomy status; I10 Essential (primary) hypertension; Z87.442 Personal history of urinary calculi; Z90.49 Acquired absence of other specified parts of digestive tract; F17.200 Nicotine dependence, unspecified, uncomplicated
CPT/HCPCS: 71046; 80053; 81003; 83690; 85027; 87493; 94640; 99281; 99285

== ENCOUNTER 2018-02-12 22:58 | Emergency (ER) | payer OTHER ==
[~2018-02-12] VITALS: Ht 180.3 cm; Wt 77.6 kg
[~2018-02-12 22:58] MED LIST changes: +PROVENTIL HFA6.7 GM IH
[2018-02-12 23:34] LABS: MCH 30.2 PG (29.0-34.0); MCHC 34.1 G/DL (30.0-36.0); MCV 88.5 FL (86-99); PLATELET COUNT 361 K/uL (156-360); RBC DIS.WIDTH-CV 15.4 % (11.8-14.6); RBC DIS.WIDTH-SD 50.3 % (39-53); RED BLOOD COUNT 4.97 M/uL (4.00-5.50); WHITE BLOOD COUNT 12.6 K/uL (4.1-10.2)
[2018-02-12 23:51] LABS: ALBUMIN 4.4 g/dL (3.2-4.8)
[2018-02-12 23:52] LABS: CHLORIDE 111 mEq/L (99-109); POTASSIUM 3.8 mEq/L (3.7-5.4); SODIUM 141 mEq/L (136-147)
[2018-02-12 23:54] LABS: GLUCOSE 102 mg/dL (70-99); TOTAL PROTEIN 8.4 g/dL (6.4-8.3)
[2018-02-12 23:56] LABS: TOTAL BILIRUBIN 0.4 mg/dL (0.0-1.0)
[2018-02-12 23:57] LABS: ALKALINE PHOSPHATASE 93 IU/L (3-129)
[2018-02-12 23:58] LABS: CREATININE 0.9 mg/dL (0.6-1.3); GFR ESTIMATE (CALCULATED) > 59 mL/min/ (58.99-99999)
[2018-02-12 23:59] LABS: AST (GOT) 18 IU/L (2-34); UREA NITROGEN (BUN) 16 mg/dL (9-23)
[2018-02-13 00:01] LABS: ALT (GPT) 9 IU/L (3-49)
[2018-02-13 03:13] LABS: LIPASE 23 U/L (1.0-51.0)
[2018-02-13 03:28] LABS: C DIFF TOXIN POSITIVE (NEGATIVE)
[2018-02-13] MEDS ORDERED: VANCOCIN 250 M250 MG PO (04:04)
[2018-02-13 04:20] VITALS: BP 126/92
[2018-02-13 07:05] LABS: BASOPHIL (%) 0.9 % (0-1); BASOPHIL COUNT 0.1 K/uL (0-0.1); EOSINOPHIL (%) 4.5 % (0-5); EOSINOPHIL COUNT 0.6 K/uL (0-0.3); IMMATURE GRANULOCYTE (%) 0.3 % (0.0-0.7); LYMPHOCYTE COUNT 4.4 K/uL (1.0-2.8); MONOCYTE COUNT 0.9 K/uL (0-0.8); NEUTROPHIL (%) 52.3 % (45-76); NEUTROPHIL COUNT 6.5 K/uL (1.8-6.4)
== END 2018-02-13 04:20 | disposition home or self-care (01) ==
LOC: EME 22:58
PROVIDERS: Emergency Medicine
DX: A04.71 Enterocolitis due to Clostridium difficile, recurrent (principal); R10.30 Lower abdominal pain, unspecified; G89.29 Other chronic pain; I10 Essential (primary) hypertension; K21.9 Gastro-esophageal reflux disease without esophagitis; M06.9 Rheumatoid arthritis, unspecified; Z88.5 Allergy status to narcotic agent; F17.200 Nicotine dependence, unspecified, uncomplicated
CPT/HCPCS: 80053; 81003; 83690; 85025; 85027; 87040; 87493; 99281; 99285; J2405; J3010

== ENCOUNTER 2018-03-01 22:24 | Emergency (ER) | payer OTHER ==
[~2018-03-01] VITALS: Ht 180.3 cm; Wt 76.6 kg
[~2018-03-01 22:24] MED LIST changes: +VANCOCIN 250 M250 MG PO
[2018-03-01 23:23] LABS: HEMATOCRIT 40.7 % (38.0-50.0); HEMOGLOBIN 14.1 G/DL (12.5-16.6); MCH 30.3 PG (29.0-34.0); MCHC 34.6 G/DL (30.0-36.0); MCV 87.3 FL (86-99); PLATELET COUNT 308 K/uL (156-360); RBC DIS.WIDTH-CV 14.7 % (11.8-14.6); RBC DIS.WIDTH-SD 47.3 % (39-53); RED BLOOD COUNT 4.66 M/uL (4.00-5.50); WHITE BLOOD COUNT 14.4 K/uL (4.1-10.2)
[2018-03-01 23:34] LABS: ALBUMIN 4.3 g/dL (3.2-4.8)
[2018-03-01 23:35] LABS: CHLORIDE 107 mEq/L (99-109); POTASSIUM 3.5 mEq/L (3.7-5.4); SODIUM 138 mEq/L (136-147)
[2018-03-01 23:37] LABS: GLUCOSE 101 mg/dL (70-99)
[2018-03-01 23:39] LABS: TOTAL BILIRUBIN 0.4 mg/dL (0.0-1.0)
[2018-03-01 23:40] LABS: ALKALINE PHOSPHATASE 82 IU/L (3-129)
[2018-03-01 23:41] LABS: GFR ESTIMATE (CALCULATED) > 59 mL/min/ (58.99-99999)
[2018-03-01 23:42] LABS: AST (GOT) 18 IU/L (2-34); UREA NITROGEN (BUN) 12 mg/dL (9-23)
[2018-03-01 23:44] LABS: ALT (GPT) 9 IU/L (3-49); LIPASE 58 U/L (1.0-51.0)
[2018-03-02] MEDS ORDERED: PERCOCET 5/31 TABLET PO (02:05)
[2018-03-02] MEDS ORDERED: REGLAN10 MG PO (02:05)
[2018-03-02 02:24] LABS: APPEARANCE CLEAR ((CLEAR)); BILIRUBIN NEGATIVE; BLOOD NEGATIVE; COLOR YELLOW ((YELLOW)); GLUCOSE (STRIP) NEGATIVE; KETONES NEGATIVE; LEUKOCYTES NEGATIVE; NITRITE NEGATIVE; PROTEIN (STRIP) NEGATIVE; SPECIFIC GRAVITY 1.018 (1.000-1.030); UCUL ADDED? NO; UROBILINOGEN 0.2 MG/DL (0.2-1.0)
[2018-03-02 02:38] VITALS: BP 127/96
== END 2018-03-02 02:42 | disposition home or self-care (01) ==
LOC: EME 22:24
DX: G89.29 Other chronic pain (principal); R10.9 Unspecified abdominal pain; A04.72 Enterocolitis due to Clostridium difficile, not specified as recurrent; K50.90 Crohn's disease, unspecified, without complications; I10 Essential (primary) hypertension; F32.9 Major depressive disorder, single episode, unspecified; F41.9 Anxiety disorder, unspecified; M06.9 Rheumatoid arthritis, unspecified; K21.9 Gastro-esophageal reflux disease without esophagitis; Z87.442 Personal history of urinary calculi; Z90.49 Acquired absence of other specified parts of digestive tract; Z88.5 Allergy status to narcotic agent; Z88.6 Allergy status to analgesic agent; F17.200 Nicotine dependence, unspecified, uncomplicated
CPT/HCPCS: 80053; 81003; 83690; 85027; 99281; 99285; J2765; J3010; J7030

== ENCOUNTER 2018-03-18 02:03 | Emergency (ER) | payer OTHER ==
[~2018-03-18] VITALS: Ht 180.3 cm; Wt 75.3 kg
[2018-03-18 02:45] LABS: HEMATOCRIT 40.1 % (38.0-50.0); HEMOGLOBIN 14.1 G/DL (12.5-16.6); MCH 30.5 PG (29.0-34.0); MCHC 35.2 G/DL (30.0-36.0); MCV 86.8 FL (86-99); PLATELET COUNT 313 K/uL (156-360); RBC DIS.WIDTH-CV 14.7 % (11.8-14.6); RBC DIS.WIDTH-SD 47.3 % (39-53); RED BLOOD COUNT 4.62 M/uL (4.00-5.50); WHITE BLOOD COUNT 15.7 K/uL (4.1-10.2)
[2018-03-18 02:59] LABS: ALBUMIN 4.3 g/dL (3.2-4.8); CHLORIDE 105 mEq/L (99-109); POTASSIUM 4.1 mEq/L (3.7-5.4); SODIUM 140 mEq/L (136-147)
[2018-03-18 03:01] LABS: GLUCOSE 101 mg/dL (70-99)
[2018-03-18 03:02] LABS: TOTAL PROTEIN 7.5 g/dL (6.4-8.3)
[2018-03-18 03:03] LABS: TOTAL BILIRUBIN 0.6 mg/dL (0.0-1.0)
[2018-03-18 03:05] LABS: ALKALINE PHOSPHATASE 82 IU/L (3-129); GFR ESTIMATE (CALCULATED) > 59 mL/min/ (58.99-99999)
[2018-03-18 03:06] LABS: UREA NITROGEN (BUN) 9 mg/dL (9-23)
[2018-03-18 03:07] LABS: AST (GOT) 17 IU/L (2-34); DIRECT BILIRUBIN 0.2 mg/dL (0.0-0.3)
[2018-03-18 03:08] LABS: ALT (GPT) 9 IU/L (3-49); LIPASE 294 U/L (1.0-51.0)
[2018-03-18 05:04] VITALS: BP 125/104
== END 2018-03-18 05:05 | disposition home or self-care (01) ==
LOC: EME 02:03
PROVIDERS: Emergency Medicine
DX: A04.71 Enterocolitis due to Clostridium difficile, recurrent (principal); R10.13 Epigastric pain; K50.90 Crohn's disease, unspecified, without complications; F32.9 Major depressive disorder, single episode, unspecified; F41.9 Anxiety disorder, unspecified; I10 Essential (primary) hypertension; K21.9 Gastro-esophageal reflux disease without esophagitis; Z87.442 Personal history of urinary calculi; M06.9 Rheumatoid arthritis, unspecified; Z88.5 Allergy status to narcotic agent; Z88.6 Allergy status to analgesic agent; F17.200 Nicotine dependence, unspecified, uncomplicated
CPT/HCPCS: 80048; 80076; 83690; 85027; 99281; 99284

== ENCOUNTER 2018-03-19 17:12 | Emergency (ER) | payer OTHER ==
[~2018-03-19] VITALS: Ht 180.3 cm; Wt 75.7 kg
[2018-03-19 18:57] LABS: HEMATOCRIT 37.1 % (38.0-50.0); HEMOGLOBIN 12.8 G/DL (12.5-16.6); MCH 29.8 PG (29.0-34.0); MCHC 34.5 G/DL (30.0-36.0); MCV 86.5 FL (86-99); PLATELET COUNT 270 K/uL (156-360); RBC DIS.WIDTH-CV 15.1 % (11.8-14.6); RBC DIS.WIDTH-SD 48.2 % (39-53); RED BLOOD COUNT 4.29 M/uL (4.00-5.50); WHITE BLOOD COUNT 14.3 K/uL (4.1-10.2)
[2018-03-19 19:17] LABS: ALBUMIN 3.7 G/DL (3.2-4.8); ALKALINE PHOSPHATASE 67 IU/L (3-129); ALT (GPT) 4 IU/L (3-49); AMYLASE 63 IU/L (1-118); AST (GOT) 13 IU/L (2-34); CHLORIDE 111 MEQ/L (99-109); CREATININE 0.9 MG/DL (0.6-1.3); GFR ESTIMATE (CALCULATED) > 59 mL/min/ (58.99-99999); GLUCOSE 89 mg/dL (70-99); LIPASE 55 U/L (1.0-51.0); POTASSIUM 4.1 MEQ/L (3.7-5.4); SODIUM 140 MEQ/L (136-147); TOTAL BILIRUBIN 0.4 MG/DL (0.0-1.0); TOTAL PROTEIN 6.7 G/DL (6.4-8.3)
[2018-03-19 19:18] LABS: TROP-I INTERPRETATION NEGATIVE; TROPONIN-I < 0.01 ng/mL (0.0-0.30)
[2018-03-19 19:20] LABS: UREA NITROGEN (BUN) 21 mg/dL (9-23)
[2018-03-19 20:19] LABS: D-DIMER ELISA < 150.00 ng/mLDDU (<230)
[2018-03-19 20:38] LABS: APPEARANCE SL.HAZY ((CLEAR)); BILIRUBIN NEGATIVE; BLOOD NEGATIVE; COLOR YELLOW ((YELLOW)); GLUCOSE (STRIP) NEGATIVE; KETONES NEGATIVE; LEUKOCYTES NEGATIVE; NITRITE NEGATIVE; PROTEIN (STRIP) NEGATIVE; SPECIFIC GRAVITY 1.018 (1.000-1.030); UROBILINOGEN 0.2 MG/DL (0.2-1.0)
[2018-03-19 20:43] LABS: BACTERIA RARE /HPF; EPITHELIAL CELLS RARE /HPF; MUCUS TRACE /LPF; UCUL ADDED? YES
[2018-03-19 22:15] LABS: TROP-I INTERPRETATION NEGATIVE; TROPONIN-I < 0.01 ng/mL (0.0-0.30)
[2018-03-19 23:21] VITALS: BP 104/70
== END 2018-03-19 23:24 | disposition home or self-care (01) ==
LOC: EME 17:12
PROVIDERS: Physician Assistant Medical
DX: R10.13 Epigastric pain (principal); I10 Essential (primary) hypertension; K21.9 Gastro-esophageal reflux disease without esophagitis; K50.90 Crohn's disease, unspecified, without complications; M06.9 Rheumatoid arthritis, unspecified; G43.909 Migraine, unspecified, not intractable, without status migrainosus; F41.9 Anxiety disorder, unspecified; F32.9 Major depressive disorder, single episode, unspecified; F17.200 Nicotine dependence, unspecified, uncomplicated; Z87.19 Personal history of other diseases of the digestive system; Z87.442 Personal history of urinary calculi; Z90.49 Acquired absence of other specified parts of digestive tract; Z88.5 Allergy status to narcotic agent; Z88.6 Allergy status to analgesic agent
CPT/HCPCS: 71046; 74177; 80053; 81003; 82150; 83690; 84484; 85027; 85379; 87086; 93005; 99281; 99284; J7030

== ENCOUNTER 2018-03-27 21:12 | Emergency (ER) | payer OTHER ==
[~2018-03-27] VITALS: Ht 180.3 cm; Wt 76.0 kg
[2018-03-27 23:07] LABS: HEMATOCRIT 37.6 % (38.0-50.0); HEMOGLOBIN 12.9 G/DL (12.5-16.6); MCHC 34.3 G/DL (30.0-36.0); MCV 87.4 FL (86-99); PLATELET COUNT 300 K/uL (156-360); RBC DIS.WIDTH-CV 14.8 % (11.8-14.6); RBC DIS.WIDTH-SD 47.8 % (39-53); WHITE BLOOD COUNT 10.5 K/uL (4.1-10.2)
[2018-03-27 23:18] LABS: CHLORIDE 112 mEq/L (99-109); POTASSIUM 3.5 mEq/L (3.7-5.4); SODIUM 139 mEq/L (136-147)
[2018-03-27 23:19] LABS: GLUCOSE 85 mg/dL (70-99)
[2018-03-27 23:23] LABS: CREATININE 0.7 mg/dL (0.6-1.3); GFR ESTIMATE (CALCULATED) > 59 mL/min/ (58.99-99999)
[2018-03-27 23:24] LABS: UREA NITROGEN (BUN) 15 mg/dL (9-23)
[2018-03-27 23:26] LABS: LIPASE 51 U/L (1.0-51.0)
[2018-03-28 00:55] VITALS: BP 103/61
== END 2018-03-28 00:56 | disposition home or self-care (01) ==
LOC: EME 21:12
PROVIDERS: Nurse Practitioner Family
DX: R10.13 Epigastric pain (principal); G89.29 Other chronic pain; R11.0 Nausea; R53.83 Other fatigue; I10 Essential (primary) hypertension; K21.9 Gastro-esophageal reflux disease without esophagitis; K50.90 Crohn's disease, unspecified, without complications; M06.9 Rheumatoid arthritis, unspecified; F41.9 Anxiety disorder, unspecified; F32.9 Major depressive disorder, single episode, unspecified; F17.200 Nicotine dependence, unspecified, uncomplicated; Z87.442 Personal history of urinary calculi; Z87.19 Personal history of other diseases of the digestive system; Z86.19 Personal history of other infectious and parasitic diseases; Z90.49 Acquired absence of other specified parts of digestive tract; Z88.5 Allergy status to narcotic agent; Z88.6 Allergy status to analgesic agent
CPT/HCPCS: 80048; 83690; 85027; 99281; 99285; J1200; J2405; J2765; J3010; J7030